=== PATIENT | male | born 1940 | race African-American/Black ===

== ENCOUNTER 2018-05-26 06:56 | Inpatient (IN) ==
[2018-05-21 11:34] LABS: Basophils % 0.8 % (0.0-0.8); Eosinophils # 0.2 10*3/uL (0.0-0.87); Eosinophils % 3.4 % (0.00-10.9); Hematocrit 32.5 VOL% (42.0-52.0); Hemoglobin 10.3 GM/DL (14.0-18.0); Immature Granulocytes % 0.6 %; Immature Granulocytes Absolute 0.03 #; Lymphocytes # 1.5 10*3/uL (1.4-4.0); Mean Corpuscular HGB Conc 31.7 GM/DL (32-36); Mean Corpuscular Hemoglobin 28 PG (27-34); Mean Corpuscular Volume 87.1 FL (87-102); Mean Platelet Volume 9.4 FL (9.6-12.0); Monocytes # 0.4 10*3/uL (0.11-0.8); Monocytes % 8.2 % (1.7-12.7); Neutrophils # 3.1 10*3/uL (1.4-7.4); Platelet Count 330 T/CUMM (130-400); Red Blood Count 3.73 MC/CUMM (3.8-5.5); Red Cell Distribution Width 14.6 % (9.3-17.3); White Blood Count 5.2 T/CUMM (4-12)
[2018-05-21 11:44] LABS: INR 0.9; PT Patient Result 10.3 SECS; Partial Thromboplastin Time 26.5 SECS (0-40)
[2018-05-21 12:08] LABS: Alanine Aminotransferase 15 U/L (16-61); Albumin 3.6 G/DL (3.4-5.0); Alkaline Phosphatase 111 U/L (45-117); Aspartate Amino Transferase 9 U/L (0-37); Bilirubin,Total < 0.39 MG/DL (0.2-1.0); Blood Urea Nitrogen 23 MG/DL (7-18); Calcium 8.9 MG/DL (8.5-10.1); Glucose 236 MG/DL (74-106); Osmolality,Calculated 292.3 MOS/KG (273-304); Sodium 141 MMOL/L (136-145); Total Protein 7.7 G/DL (6.4-8.3)
[2018-05-26] MEDS ORDERED: DIAZEPAM 5 MG TABLET PO ONE (07:17)
[2018-05-26] MEDS ORDERED: FAMOTIDINE 20 MG TABLET PO ONE (07:17)
[2018-05-26] MEDS ORDERED: ceFAZolin 1,000 MG VIAL ONE (07:41)
[2018-05-26] MEDS ORDERED: VANCOMYCIN 1,000 MG VIAL ONE (07:41)
[2018-05-26] MEDS ORDERED: DIAZEPAM 5 MG TABLET ONE (07:41)
[2018-05-26] MEDS ORDERED: FAMOTIDINE 20 MG TABLET ONE (07:41)
[2018-05-26] MEDS: LACTATED RINGERS 1,000 ML IV SCH ×3 (07:48→20:37)
[2018-05-26] MEDS ORDERED: VANCOMYCIN INJ 1,000 MG in SODIUM CHLORIDE 0.9% 250 ML IV ONE (09:00)
[2018-05-26] MEDS ORDERED: ceFAZolin 1,000 MG in SYRINGE 1 EACH IV ONE (09:00)
[2018-05-26] MEDS ORDERED: BUPIVACAINE 0.5% 50 ML VIAL ONE (09:12)
[2018-05-26] MEDS ORDERED: LIDOCAINE 1% 5 ML VIAL ONE (09:16)
[2018-05-26] MEDS ORDERED: BACITRACIN OINT 0.9 GM PACK TOP ONE (10:24)
[2018-05-26] MEDS ORDERED: DEXTROSE 50% 25 GM/50 ML SYRINGE IV PRN (11:14)
[2018-05-26] MEDS ORDERED: diphenhydrAMINE CAP 25 MG CAPSULE PO PRN (11:14)
[2018-05-26] MEDS ORDERED: ZALEPLON 5 MG CAPSULE PO PRN (11:14)
[2018-05-26] MEDS ORDERED: MAGNESIUM HYDROXIDE SUSP 30 ML UDCUP PO PRN (11:14)
[2018-05-26] MEDS ORDERED: ONDANSETRON 4 MG/2 ML VIAL IV PRN ×2 (11:14→11:43)
[2018-05-26] MEDS ORDERED: GLUCAGON 1 MG VIAL IM PRN (11:14)
[2018-05-26] MEDS ORDERED: MORPHINE 4 MG/1 ML VIAL IV PRN ×2 (11:14)
[2018-05-26] MEDS ORDERED: oxyCODONE IR 5 MG TABLET PO PRN ×2 (11:14)
[2018-05-26] MEDS: HYDROmorphone 2 MG/1 ML VIAL IV PRN ×4 (11:25→11:45)
[2018-05-26] MEDS ORDERED: HYDROmorphone 2 MG/1 ML VIAL ONE (11:26)
[2018-05-26] MEDS ORDERED: PROPOFOL 200 MG/20 ML VIAL IV ONE (11:28)
[2018-05-26] MEDS ORDERED: GLYCOPYRROLATE 0.4 MG/2 ML VIAL ONE (11:29)
[2018-05-26] MEDS ORDERED: ROCURONIUM 100 MG/10 ML VIAL IV ONE (11:29)
[2018-05-26] MEDS ORDERED: fentaNYL 100 MCG/2 ML VIAL ONE (11:29)
[2018-05-26] MEDS ORDERED: SEVOFLURANE 1 UNIT/15 MINUTE INH ONE (11:29)
[2018-05-26] MEDS ORDERED: MIDAZOLAM 2 MG/2 ML VIAL ONE (11:29)
[2018-05-26] MEDS ORDERED: NEOSTIGMINE 10 MG/10 ML VIAL ONE (11:29)
[2018-05-26] MEDS ORDERED: PHENYLEPHRINE 1 MG/10 ML SYRINGE IV ONE (11:29)
[2018-05-26] MEDS ORDERED: LABETALOL 20 MG/4 ML SYRINGE IV ONE (12:13)
[2018-05-26] MEDS: INSULIN LISPRO 100 UNIT/ML SUBCUT SCH ×3 (13:04→20:36)
[2018-05-26] MEDS: KETOROLAC 15 MG/1 ML VIAL IV SCH ×2 (13:28→19:19)
[2018-05-26] MEDS ORDERED: hydrALAZINE 20 MG/1 ML VIAL IV PRN (13:31)
[2018-05-26] MEDS: ceFAZolin 2,000 MG in PREMIX 1 EACH IV SCH ×2 (15:43→22:51)
[2018-05-26] MEDS: ACETAMINOPHEN 500 MG TABLET PO SCH ×2 (15:43→20:36)
[2018-05-26] MEDS: GLIMEPIRIDE 4 MG TABLET PO SCH (17:46)
[2018-05-26] MEDS: GEMFIBROZIL 600 MG TABLET PO SCH (17:46)
[2018-05-26] MEDS: metFORMIN 500 MG TABLET PO SCH (20:35)
[2018-05-26] MEDS: GABAPENTIN 300 MG CAPSULE PO SCH (20:36)
[2018-05-26] MEDS: DOCUSATE SODIUM 100 MG CAPSULE PO SCH (20:36)
[2018-05-26] MEDS: PANTOPRAZOLE 40 MG TABLET PO SCH (20:36)
[2018-05-27] MEDS: KETOROLAC 15 MG/1 ML VIAL IV SCH ×2 (01:25→06:04)
[2018-05-27] MEDS: ACETAMINOPHEN 500 MG TABLET PO SCH ×2 (02:25→10:00)
[2018-05-27] MEDS ORDERED: FONDAPARINUX 2.5 MG/0.5 ML SYRINGE SUBCUT SCH (05:15)
[2018-05-27 05:20] LABS: Basophils % 0.3 % (0.0-0.8); Eosinophils # 0.1 10*3/uL (0.0-0.87); Eosinophils % 0.8 % (0.00-10.9); Hematocrit 29.8 VOL% (42.0-52.0); Hemoglobin 9.4 GM/DL (14.0-18.0); Immature Granulocytes % 0.3 %; Immature Granulocytes Absolute 0.02 #; Lymphocytes # 1.2 10*3/uL (1.4-4.0); Lymphocytes % 18.7 % (21.2-54.2); Mean Corpuscular HGB Conc 31.5 GM/DL (32-36); Mean Corpuscular Hemoglobin 27 PG (27-34); Mean Corpuscular Volume 86.1 FL (87-102); Mean Platelet Volume 9.6 FL (9.6-12.0); Monocytes # 0.8 10*3/uL (0.11-0.8); Monocytes % 11.6 % (1.7-12.7); Neutrophils # 4.5 10*3/uL (1.4-7.4); Neutrophils % 68.3 % (38.7-73.9); Platelet Count 321 T/CUMM (130-400); Red Blood Count 3.46 MC/CUMM (3.8-5.5); Red Cell Distribution Width 14.6 % (9.3-17.3); White Blood Count 6.6 T/CUMM (4-12)
[2018-05-27 05:34] LABS: Calcium 8.6 MG/DL (8.5-10.1); Osmolality,Calculated 285.1 MOS/KG (273-304); Potassium 3.6 MMOL/L (3.5-5.1)
[2018-05-27] MEDS: LACTATED RINGERS 1,000 ML IV SCH (05:55)
[2018-05-27] MEDS: INSULIN LISPRO 100 UNIT/ML SUBCUT SCH ×4 (08:14→21:23)
[2018-05-27 08:34] LABS: Apearance,Urine CLEAR (Clear); Bilirubin,Urine Negative (Negative); Blood, Urine Negative (Negative); Glucose,Urine (UA) Negative (Negative); Ketones,Urine Negative (Negative); Mucus,Urine Occasional /LPF (Occasional); Nitrite,Urine Negative (Negative); Protein,Urine Negative; Squamous Epithelial Cell,Urine Occasional /HPF (0-10); Urine Color Yellow (Yellow); Urine Specific Gravity 1.027 (1.001-1.035); Urine Urobilinogen < 2.0 EU/DL (0.2-1.0); WBC,Urine <1 /HPF (0-6)
[2018-05-27] MEDS ORDERED: hydrALAZINE 20 MG/1 ML VIAL IV PRN (08:50)
[2018-05-27] MEDS ORDERED: LOSARTAN 50 MG TABLET PO SCH (09:00)
[2018-05-27] MEDS ORDERED: METOPROLOL SUCCINATE XL 50 MG TABLET PO SCH (09:00)
[2018-05-27] MEDS ORDERED: hydrALAZINE 25 MG TABLET PO SCH (09:00)
[2018-05-27] MEDS ORDERED: METOPROLOL TARTRATE 50 MG TABLET PO SCH (09:00)
[2018-05-27] MEDS: metFORMIN 500 MG TABLET PO SCH ×2 (09:55→21:23)
[2018-05-27] MEDS: GEMFIBROZIL 600 MG TABLET PO SCH ×2 (09:56→17:23)
[2018-05-27] MEDS: POTASSIUM CHLORIDE 20 MEQ TABLET PO SCH (09:56)
[2018-05-27] MEDS: LOSARTAN 50 MG TABLET PO SCH (09:56)
[2018-05-27] MEDS: ATORVASTATIN 20 MG TABLET PO SCH (09:59)
[2018-05-27] MEDS: DOCUSATE SODIUM 100 MG CAPSULE PO SCH ×3 (09:59→21:22)
[2018-05-27] MEDS: FUROSEMIDE 40 MG TABLET PO SCH (09:59)
[2018-05-27] MEDS: PANTOPRAZOLE 40 MG TABLET PO SCH ×2 (10:00→21:22)
[2018-05-27] MEDS: GLIMEPIRIDE 4 MG TABLET PO SCH ×2 (10:00→17:23)
[2018-05-27] MEDS: CELECOXIB 200 MG CAPSULE PO SCH (17:23)
[2018-05-27] MEDS: GABAPENTIN 300 MG CAPSULE PO SCH (21:23)
[2018-05-28 05:41] LABS: Basophils % 0.4 % (0.0-0.8); Eosinophils # 0.2 10*3/uL (0.0-0.87); Eosinophils % 2.4 % (0.00-10.9); Hematocrit 29.7 VOL% (42.0-52.0); Hemoglobin 9.3 GM/DL (14.0-18.0); Immature Granulocytes % 0.4 %; Immature Granulocytes Absolute 0.03 #; Lymphocytes # 1.3 10*3/uL (1.4-4.0); Lymphocytes % 16.9 % (21.2-54.2); Mean Corpuscular HGB Conc 31.3 GM/DL (32-36); Mean Corpuscular Hemoglobin 27 PG (27-34); Mean Corpuscular Volume 87.4 FL (87-102); Mean Platelet Volume 9.8 FL (9.6-12.0); Monocytes % 13.1 % (1.7-12.7); Neutrophils % 66.8 % (38.7-73.9); Platelet Count 304 T/CUMM (130-400); Red Cell Distribution Width 14.7 % (9.3-17.3); White Blood Count 7.5 T/CUMM (4-12)
[2018-05-28] MEDS: INSULIN LISPRO 100 UNIT/ML SUBCUT SCH ×4 (07:16→21:42)
[2018-05-28] MEDS: GLIMEPIRIDE 4 MG TABLET PO SCH ×2 (07:17→16:39)
[2018-05-28] MEDS: GEMFIBROZIL 600 MG TABLET PO SCH ×2 (08:17→16:39)
[2018-05-28] MEDS: CELECOXIB 200 MG CAPSULE PO SCH (08:18)
[2018-05-28] MEDS: LOSARTAN 50 MG TABLET PO SCH (08:19)
[2018-05-28] MEDS: METOPROLOL SUCCINATE XL 50 MG TABLET PO SCH (08:20)
[2018-05-28] MEDS: FUROSEMIDE 40 MG TABLET PO SCH (08:21)
[2018-05-28] MEDS: ATORVASTATIN 20 MG TABLET PO SCH (08:21)
[2018-05-28] MEDS: PANTOPRAZOLE 40 MG TABLET PO SCH ×2 (08:22→21:14)
[2018-05-28] MEDS: DOCUSATE SODIUM 100 MG CAPSULE PO SCH ×2 (08:23→21:14)
[2018-05-28] MEDS: POTASSIUM CHLORIDE 20 MEQ TABLET PO SCH (08:23)
[2018-05-28] MEDS: metFORMIN 500 MG TABLET PO SCH ×2 (08:29→21:14)
[2018-05-28] MEDS: FONDAPARINUX 2.5 MG/0.5 ML SYRINGE SUBCUT SCH (08:35)
[2018-05-28] MEDS: GABAPENTIN 300 MG CAPSULE PO SCH (21:40)
[2018-05-29 04:50] LABS: Basophils % 0.4 % (0.0-0.8); Eosinophils # 0.3 10*3/uL (0.0-0.87); Eosinophils % 4.2 % (0.00-10.9); Hematocrit 31.8 VOL% (42.0-52.0); Hemoglobin 9.9 GM/DL (14.0-18.0); Immature Granulocytes % 0.5 %; Immature Granulocytes Absolute 0.04 #; Lymphocytes # 1.1 10*3/uL (1.4-4.0); Mean Corpuscular HGB Conc 31.1 GM/DL (32-36); Mean Corpuscular Hemoglobin 28 PG (27-34); Mean Corpuscular Volume 88.6 FL (87-102); Mean Platelet Volume 9.8 FL (9.6-12.0); Monocytes # 0.9 10*3/uL (0.11-0.8); Neutrophils # 5.7 10*3/uL (1.4-7.4); Neutrophils % 69.9 % (38.7-73.9); Platelet Count 337 T/CUMM (130-400); Red Blood Count 3.59 MC/CUMM (3.8-5.5); Red Cell Distribution Width 14.6 % (9.3-17.3); White Blood Count 8.1 T/CUMM (4-12)
[2018-05-29] MEDS: INSULIN LISPRO 100 UNIT/ML SUBCUT SCH ×2 (07:40→12:51)
[2018-05-29] MEDS: GEMFIBROZIL 600 MG TABLET PO SCH (08:53)
[2018-05-29] MEDS: FONDAPARINUX 2.5 MG/0.5 ML SYRINGE SUBCUT SCH (08:53)
[2018-05-29] MEDS: GLIMEPIRIDE 4 MG TABLET PO SCH (08:53)
[2018-05-29] MEDS: DOCUSATE SODIUM 100 MG CAPSULE PO SCH (08:54)
[2018-05-29] MEDS: LOSARTAN 50 MG TABLET PO SCH (08:54)
[2018-05-29] MEDS: CELECOXIB 200 MG CAPSULE PO SCH (08:54)
[2018-05-29] MEDS: POTASSIUM CHLORIDE 20 MEQ TABLET PO SCH (08:55)
[2018-05-29] MEDS: FUROSEMIDE 40 MG TABLET PO SCH (08:55)
[2018-05-29] MEDS: PANTOPRAZOLE 40 MG TABLET PO SCH (08:56)
[2018-05-29] MEDS: METOPROLOL SUCCINATE XL 50 MG TABLET PO SCH (08:56)
[2018-05-29] MEDS: ATORVASTATIN 20 MG TABLET PO SCH (08:56)
[2018-05-29] MEDS: metFORMIN 500 MG TABLET PO SCH (09:02)
[2018-05-29 14:57] VITALS: BP 126/77
[2018-06-08] MEDS ORDERED: CILOSTAZOL 100 MG TABLET PO SCH (09:00)
[2018-06-08] MEDS ORDERED: ASPIRIN EC 81 MG TABLET PO SCH (09:00)
== END 2018-05-29 15:05 | disposition swing bed (61) | DRG 470 ==
LOC: N.OR 06:56 → N.SDSINP 06:57 → N.3E 10:17
PROVIDERS: ADMIT Orthopaedic Surgery; ATTEND Orthopaedic Surgery

== ENCOUNTER 2018-12-10 09:31 | Observation (INO) ==
[2018-12-10] MEDS ORDERED: DEXTROSE 50% 25 GM/50 ML SYRINGE IV ONE (09:40)
[2018-12-10] MEDS ORDERED: DEXTROSE 50% 25 GM/50 ML SYRINGE IV STA (09:46)
[2018-12-10] MEDS ORDERED: DEXTROSE 50% 25 GM/50 ML VIAL IV STA ×2 (09:46→11:50)
[2018-12-10] MEDS: DEXTROSE 5% NACL 0.45% 1,000 ML IV SCH ×2 (09:50→15:46)
[2018-12-10 09:56] LABS: Basophils % 0.5 % (0.0-0.8); Eosinophils # 0.2 10*3/uL (0.0-0.87); Eosinophils % 2.1 % (0.00-10.9); Hematocrit 33.9 VOL% (42.0-52.0); Hemoglobin 10.8 GM/DL (14.0-18.0); Immature Granulocytes % 0.3 %; Immature Granulocytes Absolute 0.02 #; Lymphocytes # 2.8 10*3/uL (1.4-4.0); Lymphocytes % 35.6 % (21.2-54.2); Mean Corpuscular HGB Conc 31.9 GM/DL (32-36); Mean Corpuscular Volume 86.5 FL (87-102); Mean Platelet Volume 9.9 FL (9.6-12.0); Monocytes % 11.3 % (1.7-12.7); Neutrophils % 50.2 % (38.7-73.9); Platelet Count 360 T/CUMM (130-400); Red Blood Count 3.92 MC/CUMM (3.8-5.5); Red Cell Distribution Width 15.1 % (9.3-17.3); White Blood Count 7.7 T/CUMM (4-12)
[2018-12-10 10:06] LABS: PT Patient Result 10.4 SECS (9.6-12.2); Partial Thromboplastin Time 24.3 SECS (20.8-36.0)
[2018-12-10 10:13] LABS: Albumin 3.8 G/DL (3.4-5.0); Bilirubin,Total 0.4 MG/DL (0.2-1.0); Osmolality,Calculated 279.3 MOS/KG (273-304); Total Protein 8.1 G/DL (6.4-8.3)
[2018-12-10] MEDS ORDERED: ONDANSETRON 4 MG/2 ML VIAL IV PRN (11:29)
[2018-12-10] MEDS ORDERED: ACETAMINOPHEN 325 MG TABLET PO PRN (11:29)
[2018-12-10 11:32] LABS: Amorphous Crystals,Urine Occasional /HPF (Few); Apearance,Urine CLEAR (Clear); Bilirubin,Urine Negative (Negative); Blood, Urine Negative (Negative); Glucose,Urine (UA) Negative (Negative); Ketones,Urine Negative (Negative); Mucus,Urine Occasional /LPF (Occasional); Nitrite,Urine Negative (Negative); Protein,Urine Negative; Squamous Epithelial Cell,Urine Occasional /HPF (0-10); Urine Color Straw (Yellow); Urine Specific Gravity 1.005 (1.001-1.035); Urine Urobilinogen < 2.0 EU/DL (0.2-1.0); WBC,Urine <1 /HPF (0-6)
[2018-12-10] MEDS ORDERED: NITROGLYCERIN SL 0.4 MG TABLET SL PRN (15:31)
[2018-12-10] MEDS ORDERED: DICLOFENAC 1% GEL 100 GM TUBE TOP PRN (15:31)
[2018-12-10] MEDS ORDERED: DEXTROSE 10% 250 ML BAG IV PRN (15:50)
[2018-12-10] MEDS ORDERED: GLUCAGON 1 MG VIAL IM PRN (15:50)
[2018-12-10] MEDS ORDERED: ATORVASTATIN 20 MG TABLET PO SCH (17:00)
[2018-12-10] MEDS: GEMFIBROZIL 600 MG TABLET PO SCH (17:16)
[2018-12-10] MEDS: CILOSTAZOL 100 MG TABLET PO SCH (22:20)
[2018-12-10] MEDS: traMADol 50 MG TABLET PO PRN (22:20)
[2018-12-10] MEDS: GABAPENTIN 600 MG TABLET PO SCH (22:20)
[2018-12-11 05:58] LABS: Basophils % 0.5 % (0.0-0.8); Eosinophils # 0.2 10*3/uL (0.0-0.87); Eosinophils % 3.1 % (0.00-10.9); Hematocrit 31.7 VOL% (42.0-52.0); Hemoglobin 9.8 GM/DL (14.0-18.0); Immature Granulocytes % 0.2 %; Immature Granulocytes Absolute 0.01 #; Lymphocytes # 1.5 10*3/uL (1.4-4.0); Lymphocytes % 26.2 % (21.2-54.2); Mean Corpuscular HGB Conc 30.9 GM/DL (32-36); Mean Corpuscular Volume 88.8 FL (87-102); Monocytes % 12.2 % (1.7-12.7); Neutrophils % 57.8 % (38.7-73.9); Platelet Count 312 T/CUMM (130-400); Red Blood Count 3.57 MC/CUMM (3.8-5.5); White Blood Count 5.7 T/CUMM (4-12)
[2018-12-11 06:40] LABS: Calcium 9.2 MG/DL (8.5-10.1); Osmolality,Calculated 292.1 MOS/KG (273-304); Risk Ratio 1.56; Thyroid Stimulating Hormone 4.01 uIU/ml (0.358-3.74); VLDL CHOLESTEROL 13.4 MG/DL
[2018-12-11] MEDS ORDERED: METOPROLOL SUCCINATE XL 50 MG TABLET PO SCH (09:00)
[2018-12-11] MEDS ORDERED: LOSARTAN 50 MG TABLET PO SCH (09:00)
[2018-12-11] MEDS ORDERED: FUROSEMIDE 40 MG TABLET PO SCH (09:00)
[2018-12-11] MEDS ORDERED: PANTOPRAZOLE 40 MG TABLET PO SCH (09:00)
[2018-12-11] MEDS ORDERED: POTASSIUM CHLORIDE 20 MEQ TABLET PO SCH (09:00)
[2018-12-11] MEDS ORDERED: ASPIRIN EC 81 MG TABLET PO SCH (09:00)
[2018-12-11] MEDS: GABAPENTIN 600 MG TABLET PO SCH (09:13)
[2018-12-11] MEDS: GEMFIBROZIL 600 MG TABLET PO SCH (09:14)
[2018-12-11] MEDS: traMADol 50 MG TABLET PO PRN (09:14)
[2018-12-11] MEDS: CILOSTAZOL 100 MG TABLET PO SCH (09:14)
[2018-12-11 16:47] VITALS: BP 131/68
== END 2018-12-11 16:47 | disposition home health service (06) ==
LOC: N.EDINP 09:31 → N.ED 09:31 → N.5E 13:42
PROVIDERS: ADMIT Internal Medicine; ATTEND Internal Medicine

== ENCOUNTER 2019-06-03 01:23 | Observation (INO) ==
[2019-06-03 02:12] LABS: Basophils # 0.1 10*3/uL (0.0-0.2); Basophils % 0.5 % (0.0-0.8); Eosinophils # 0.2 10*3/uL (0.0-0.87); Eosinophils % 2.1 % (0.00-10.9); Hematocrit 31.8 VOL% (42.0-52.0); Hemoglobin 10.3 GM/DL (14.0-18.0); Immature Granulocytes % 0.6 %; Immature Granulocytes Absolute 0.06 #; Lymphocytes # 1.8 10*3/uL (1.4-4.0); Lymphocytes % 17.3 % (21.2-54.2); Mean Corpuscular HGB Conc 32.4 GM/DL (32-36); Mean Corpuscular Volume 86.4 FL (87-102); Monocytes % 7.5 % (1.7-12.7); Platelet Count 371 T/CUMM (130-400); Red Blood Count 3.68 MC/CUMM (3.8-5.5); Red Cell Distribution Width 14.3 % (9.3-17.3); White Blood Count 10.2 T/CUMM (4-12)
[2019-06-03] MEDS ORDERED: ONDANSETRON 4 MG/2 ML VIAL IV STA (02:13)
[2019-06-03] MEDS ORDERED: MORPHINE 4 MG/1 ML VIAL IV STA (02:13)
[2019-06-03] MEDS ORDERED: ALUM/MAG/SIMETH/LIDO VISC 1:1 30 ML BOTTLE PO STA (02:13)
[2019-06-03] MEDS ORDERED: NITROGLYCERIN 2% OINT 1 INCH/GM PACK TOP STA (02:13)
[2019-06-03] MEDS ORDERED: ASPIRIN 325 MG TABLET PO STA (02:13)
[2019-06-03 02:39] LABS: Alanine Aminotransferase 20 U/L (16-61); Albumin 3.9 G/DL (3.4-5.0); Alkaline Phosphatase 168 U/L (45-117); Aspartate Amino Transferase 12 U/L (0-37); Bilirubin,Total < 0.39 MG/DL (0.2-1.0); Blood Urea Nitrogen 30 MG/DL (7-18); Calcium 8.9 MG/DL (8.5-10.1); Estimated Glom Filtration Rate 58 ML/MIN; Glucose 330 MG/DL (74-106); Osmolality,Calculated 291.8 MOS/KG (273-304); Total Protein 7.2 G/DL (6.4-8.3)
[2019-06-03 02:51] LABS: INR 0.9; PT Patient Result 10.3 SECS (9.6-12.2); Partial Thromboplastin Time 23.6 SECS (20.8-36.0)
[2019-06-03] MEDS ORDERED: MORPHINE 4 MG/1 ML VIAL ONE (03:04)
[2019-06-03] MEDS ORDERED: NITROGLYCERIN 2% OINT 1 INCH/GM PACK TOP ONE (03:04)
[2019-06-03] MEDS ORDERED: ONDANSETRON 4 MG/2 ML VIAL ONE (03:04)
[2019-06-03] MEDS ORDERED: ASPIRIN 325 MG TABLET ONE (03:05)
[2019-06-03] MEDS ORDERED: ALUM/MAG/SIMETH/LIDO VISC 1:1 30 ML BOTTLE PO ONE (03:07)
[2019-06-03] MEDS ORDERED: ceFAZolin 1,000 MG VIAL ONE (05:21)
[2019-06-03] MEDS ORDERED: ONDANSETRON 4 MG/2 ML VIAL IV PRN (06:35)
[2019-06-03] MEDS ORDERED: ACETAMINOPHEN 325 MG TABLET PO PRN (06:35)
[2019-06-03] MEDS: ENOXAPARIN 40 MG/0.4 ML SYRINGE SUBCUT SCH (07:20)
[2019-06-03] MEDS ORDERED: LOSARTAN 50 MG TABLET PO SCH (09:00)
[2019-06-03] MEDS ORDERED: WARFARIN 7.5 MG TABLET PO SCH ×2 (09:00→18:00)
[2019-06-03] MEDS: METOPROLOL SUCCINATE XL 50 MG TABLET PO SCH (09:19)
[2019-06-03] MEDS: POTASSIUM CHLORIDE 10 MEQ TABLET PO SCH (09:19)
[2019-06-03] MEDS: CLOPIDOGREL 75 MG TABLET PO SCH (09:20)
[2019-06-03] MEDS: FUROSEMIDE 40 MG TABLET PO SCH (09:20)
[2019-06-03] MEDS: cilostazoL 100 MG TABLET PO SCH ×2 (09:20→21:46)
[2019-06-03] MEDS: GABAPENTIN 600 MG TABLET PO SCH ×2 (09:20→21:47)
[2019-06-03] MEDS: ASPIRIN EC 81 MG TABLET PO SCH (09:20)
[2019-06-03] MEDS: PANTOPRAZOLE 40 MG TABLET PO SCH (09:20)
[2019-06-03] MEDS: gemfibroziL 600 MG TABLET PO SCH ×2 (09:20→16:18)
[2019-06-03] MEDS ORDERED: ATORVASTATIN 40 MG TABLET PO SCH (21:00)
[2019-06-04 04:13] LABS: Basophils # 0.1 10*3/uL (0.0-0.2); Basophils % 0.8 % (0.0-0.8); Eosinophils # 0.2 10*3/uL (0.0-0.87); Eosinophils % 3.8 % (0.00-10.9); Hematocrit 32.6 VOL% (42.0-52.0); Hemoglobin 10.2 GM/DL (14.0-18.0); Immature Granulocytes % 0.6 %; Immature Granulocytes Absolute 0.04 #; Lymphocytes % 31.6 % (21.2-54.2); Mean Corpuscular HGB Conc 31.3 GM/DL (32-36); Mean Corpuscular Volume 87.6 FL (87-102); Mean Platelet Volume 10.1 FL (9.6-12.0); Monocytes % 9.6 % (1.7-12.7); Neutrophils % 53.6 % (38.7-73.9); Platelet Count 360 T/CUMM (130-400); Red Blood Count 3.72 MC/CUMM (3.8-5.5); Red Cell Distribution Width 14.2 % (9.3-17.3); White Blood Count 6.2 T/CUMM (4-12)
[2019-06-04 04:51] LABS: Albumin 3.5 G/DL (3.4-5.0); Bilirubin,Direct 0.13 MG/DL (0.0-0.20); Bilirubin,Indirect 0.9 MG/DL (0.0-1.0); Total Protein 7.4 G/DL (6.4-8.3)
[2019-06-04 04:53] LABS: Calcium 9.3 MG/DL (8.5-10.1); Osmolality,Calculated 282.8 MOS/KG (273-304); Risk Ratio 2.57; VLDL CHOLESTEROL 23.2 MG/DL
[2019-06-04] MEDS: GABAPENTIN 600 MG TABLET PO SCH (09:53)
[2019-06-04] MEDS: cilostazoL 100 MG TABLET PO SCH (09:53)
[2019-06-04] MEDS: ASPIRIN EC 81 MG TABLET PO SCH (09:53)
[2019-06-04] MEDS: POTASSIUM CHLORIDE 10 MEQ TABLET PO SCH (09:54)
[2019-06-04] MEDS: ENOXAPARIN 40 MG/0.4 ML SYRINGE SUBCUT SCH (09:54)
[2019-06-04] MEDS: METOPROLOL SUCCINATE XL 50 MG TABLET PO SCH (09:54)
[2019-06-04] MEDS: gemfibroziL 600 MG TABLET PO SCH (09:54)
[2019-06-04] MEDS: PANTOPRAZOLE 40 MG TABLET PO SCH (09:54)
[2019-06-04] MEDS: CLOPIDOGREL 75 MG TABLET PO SCH (09:54)
[2019-06-04] MEDS: FUROSEMIDE 40 MG TABLET PO SCH (09:54)
[2019-06-04 12:44] VITALS: BP 146/87
== END 2019-06-04 15:10 | disposition home or self-care (01) ==
LOC: EDSEX → SUATTDRO → EDUNIT# → N.EDINP 01:23 → N.TELES 01:23 → N.ED 01:23 → N.TELES 07:44
PROVIDERS: ADMIT Internal Medicine; ATTEND Internal Medicine

== ENCOUNTER 2019-09-25 14:35 | Inpatient (IN) ==
[2019-09-25 16:04] LABS: Basophils % 0.6 % (0.0-0.8); Eosinophils # 0.2 10*3/uL (0.0-0.87); Eosinophils % 2.6 % (0.00-10.9); Hematocrit 40.1 VOL% (42.0-52.0); Hemoglobin 12.4 GM/DL (14.0-18.0); Immature Granulocytes % 0.5 %; Immature Granulocytes Absolute 0.03 #; Mean Corpuscular HGB Conc 30.9 GM/DL (32-36); Mean Corpuscular Volume 87.4 FL (87-102); Mean Platelet Volume 9.8 FL (9.6-12.0); Monocytes % 8.7 % (1.7-12.7); Neutrophils % 57.6 % (38.7-73.9); Platelet Count 367 T/CUMM (130-400); Red Blood Count 4.59 MC/CUMM (3.8-5.5); Red Cell Distribution Width 15.4 % (9.3-17.3); White Blood Count 6.6 T/CUMM (4-12)
[2019-09-25 16:22] LABS: Alanine Aminotransferase 20 U/L (16-61); Albumin 4.2 G/DL (3.4-5.0); Alkaline Phosphatase 154 U/L (45-117); Aspartate Amino Transferase 23 U/L (0-37); Bilirubin,Total < 0.39 MG/DL (0.2-1.0); Blood Urea Nitrogen 25 MG/DL (7-18); Calcium 9.6 MG/DL (8.5-10.1); Estimated Glom Filtration Rate 77 ML/MIN; Glucose 163 MG/DL (74-106); Osmolality,Calculated 284.5 MOS/KG (273-304); Total Protein 8.7 G/DL (6.4-8.3)
[2019-09-25 16:23] LABS: INR 1.8
[2019-09-25 16:48] LABS: Ferritin 201.6 ng/ml (26-388)
[2019-09-25 16:49] LABS: PT Patient Result 18.4 SECS (9.8-11.9)
[2019-09-25] MEDS ORDERED: cefTRIAXone 1,000 MG in SODIUM CHLORIDE 0.9% 100 ML IV STA (16:54)
[2019-09-25 16:55] LABS: Apearance,Urine Slightly Hazy (Clear); Bacteria,Urine Occasional /HPF (Few); Bilirubin,Urine Negative (Negative); Blood, Urine Small mg/dL (Negative); Glucose,Urine (UA) Negative (Negative); Ketones,Urine Negative (Negative); Mucus,Urine Occasional /LPF (Occasional); Nitrite,Urine Negative (Negative); Protein,Urine Negative; RBC,Urine 2 /HPF (0-4); Squamous Epithelial Cell,Urine Occasional /HPF (0-10); Urine Color Yellow (Yellow); Urine Specific Gravity 1.021 (1.001-1.035); Urine Urobilinogen < 2.0 EU/DL (0.2-1.0); WBC,Urine 39 /HPF (0-6)
[2019-09-25] MEDS ORDERED: GLUCAGON 1 MG VIAL IM PRN (17:30)
[2019-09-25] MEDS ORDERED: DEXTROSE 50% 25 GM/50 ML VIAL IV PRN (17:30)
[2019-09-25] MEDS ORDERED: ONDANSETRON 4 MG/2 ML VIAL IV PRN (17:30)
[2019-09-25] MEDS ORDERED: NITROGLYCERIN SL 0.4 MG TABLET SL PRN (17:36)
[2019-09-25] MEDS ORDERED: BISACODYL 5 MG TABLET PO PRN (17:44)
[2019-09-25] MEDS ORDERED: DOCUSATE SODIUM 100 MG CAPSULE PO PRN (17:44)
[2019-09-25] MEDS ORDERED: SIMETHICONE CHEW 125 MG TABLET PO PRN (17:44)
[2019-09-25] MEDS ORDERED: hydrALAZINE 20 MG/1 ML VIAL IV PRN (17:44)
[2019-09-25] MEDS ORDERED: ALUMINUM/MAGNES/SIMETH MAX STR 30 ML UDCUP PO PRN (17:44)
[2019-09-25] MEDS ORDERED: DEXTROSE 10% 250 ML BAG IV PRN (17:44)
[2019-09-25] MEDS ORDERED: ZALEPLON 5 MG CAPSULE PO PRN (17:44)
[2019-09-25] MEDS ORDERED: ACETAMINOPHEN 325 MG TABLET PO PRN ×2 (17:44)
[2019-09-25] MEDS ORDERED: guaiFENesin/DM ER 600-30 MG TABLET PO PRN (17:44)
[2019-09-25] MEDS ORDERED: diphenhydrAMINE CAP 25 MG CAPSULE PO PRN (17:44)
[2019-09-25] MEDS ORDERED: traZODone 50 MG TABLET PO PRN (17:44)
[2019-09-25] MEDS ORDERED: LACTULOSE 20 GM/30 ML UDCUP PO PRN (17:44)
[2019-09-25] MEDS ORDERED: DENOSUMAB 60 MG/ML SYRINGE SUBCUT SCH (18:00)
[2019-09-25] MEDS: GABAPENTIN 600 MG TABLET PO SCH (21:36)
[2019-09-25] MEDS: ATORVASTATIN 40 MG TABLET PO SCH (21:37)
[2019-09-25] MEDS: INSULIN REGULAR 100 UNIT/ML SUBCUT SCH (22:47)
[2019-09-26 05:47] LABS: Basophils % 0.7 % (0.0-0.8); Eosinophils # 0.2 10*3/uL (0.0-0.87); Eosinophils % 2.9 % (0.00-10.9); Hematocrit 36.4 VOL% (42.0-52.0); Hemoglobin 11.4 GM/DL (14.0-18.0); Immature Granulocytes % 0.4 %; Immature Granulocytes Absolute 0.02 #; Lymphocytes # 1.9 10*3/uL (1.4-4.0); Lymphocytes % 35.2 % (21.2-54.2); Mean Corpuscular HGB Conc 31.3 GM/DL (32-36); Mean Corpuscular Volume 87.1 FL (87-102); Monocytes % 13.6 % (1.7-12.7); Neutrophils % 47.2 % (38.7-73.9); Platelet Count 313 T/CUMM (130-400); Red Blood Count 4.18 MC/CUMM (3.8-5.5); Red Cell Distribution Width 15.1 % (9.3-17.3); White Blood Count 5.5 T/CUMM (4-12)
[2019-09-26 05:59] LABS: INR 1.5
[2019-09-26 06:16] LABS: Albumin 3.5 G/DL (3.4-5.0); Bilirubin,Total 1.6 MG/DL (0.2-1.0); Calcium 9.1 MG/DL (8.5-10.1); Osmolality,Calculated 281.4 MOS/KG (273-304); Risk Ratio 2.14; Total Protein 7.3 G/DL (6.4-8.3); VLDL CHOLESTEROL 15.4 MG/DL
[2019-09-26] MEDS: INSULIN REGULAR 100 UNIT/ML SUBCUT SCH ×4 (08:04→21:24)
[2019-09-26] MEDS: LOSARTAN 50 MG TABLET PO SCH (08:30)
[2019-09-26] MEDS: POTASSIUM CHLORIDE 10 MEQ TABLET PO SCH (08:30)
[2019-09-26] MEDS: gemfibroziL 600 MG TABLET PO SCH ×2 (08:30→16:44)
[2019-09-26] MEDS: metFORMIN 500 MG TABLET PO SCH ×2 (08:30→17:03)
[2019-09-26] MEDS: GABAPENTIN 600 MG TABLET PO SCH ×2 (08:31→21:22)
[2019-09-26] MEDS: METOPROLOL SUCCINATE XL 100 MG TABLET PO SCH (08:31)
[2019-09-26] MEDS: cefTRIAXone 1,000 MG in SYRINGE 1 EACH IV SCH (08:33)
[2019-09-26] MEDS: FUROSEMIDE 40 MG TABLET PO SCH (09:09)
[2019-09-26] MEDS: POTASSIUM CHLORIDE RIDER 10 MEQ in PREMIX 1 EACH IV SCH ×6 (10:12→16:57)
[2019-09-26] MEDS: POTASSIUM CHLORIDE 20 MEQ/15 ML UDCUP PO SCH ×2 (11:38→21:21)
[2019-09-26] MEDS: PANTOPRAZOLE 40 MG TABLET PO SCH (18:30)
[2019-09-26] MEDS: POLYETHYLENE GLYCOL POWDER 17 GM PACK PO SCH (21:20)
[2019-09-26] MEDS: ATORVASTATIN 40 MG TABLET PO SCH (21:22)
[2019-09-27 01:46] LABS: Albumin 3.4 G/DL (3.4-5.0); Basophils % 0.7 % (0.0-0.8); Bilirubin,Total 0.5 MG/DL (0.2-1.0); Calcium 8.6 MG/DL (8.5-10.1); Eosinophils # 0.1 10*3/uL (0.0-0.87); Eosinophils % 3.2 % (0.00-10.9); Hemoglobin 11.3 GM/DL (14.0-18.0); Immature Granulocytes % 0.7 %; Immature Granulocytes Absolute 0.03 #; Lymphocytes # 1.5 10*3/uL (1.4-4.0); Lymphocytes % 34.9 % (21.2-54.2); Mean Corpuscular HGB Conc 31.4 GM/DL (32-36); Mean Corpuscular Volume 85.7 FL (87-102); Mean Platelet Volume 9.8 FL (9.6-12.0); Monocytes % 10.9 % (1.7-12.7); Neutrophils % 49.6 % (38.7-73.9); Osmolality,Calculated 275.7 MOS/KG (273-304); Platelet Count 325 T/CUMM (130-400); Total Protein 7.5 G/DL (6.4-8.3); White Blood Count 4.4 T/CUMM (4-12)
[2019-09-27 02:02] LABS: INR 1.4; PT Patient Result 14.5 SECS (9.8-11.9)
[2019-09-27] MEDS: PANTOPRAZOLE 40 MG TABLET PO SCH ×2 (06:04→18:10)
[2019-09-27] MEDS: INSULIN REGULAR 100 UNIT/ML SUBCUT SCH ×4 (08:21→21:45)
[2019-09-27] MEDS: POTASSIUM CHLORIDE 20 MEQ/15 ML UDCUP PO SCH ×2 (09:34→21:46)
[2019-09-27] MEDS: POTASSIUM CHLORIDE 10 MEQ TABLET PO SCH (09:34)
[2019-09-27] MEDS: FUROSEMIDE 40 MG TABLET PO SCH (09:35)
[2019-09-27] MEDS: LOSARTAN 50 MG TABLET PO SCH (09:35)
[2019-09-27] MEDS: GABAPENTIN 600 MG TABLET PO SCH ×2 (09:35→21:46)
[2019-09-27] MEDS: METOPROLOL SUCCINATE XL 100 MG TABLET PO SCH (09:35)
[2019-09-27] MEDS: cefTRIAXone 1,000 MG in SYRINGE 1 EACH IV SCH (09:35)
[2019-09-27] MEDS: gemfibroziL 600 MG TABLET PO SCH ×2 (09:35→16:15)
[2019-09-27] MEDS: ASPIRIN EC 81 MG TABLET PO SCH (09:35)
[2019-09-27] MEDS: POLYETHYLENE GLYCOL POWDER 17 GM PACK PO SCH ×2 (09:36→21:47)
[2019-09-27] MEDS: ATORVASTATIN 40 MG TABLET PO SCH (21:46)
[2019-09-28] MEDS: PANTOPRAZOLE 40 MG TABLET PO SCH ×2 (06:10→18:38)
[2019-09-28 06:37] LABS: Basophils % 0.7 % (0.0-0.8); Eosinophils # 0.2 10*3/uL (0.0-0.87); Hematocrit 39.4 VOL% (42.0-52.0); Hemoglobin 12.6 GM/DL (14.0-18.0); Immature Granulocytes % 0.4 %; Immature Granulocytes Absolute 0.02 #; Lymphocytes % 45.3 % (21.2-54.2); Mean Corpuscular Volume 85.7 FL (87-102); Mean Platelet Volume 9.7 FL (9.6-12.0); Monocytes % 9.9 % (1.7-12.7); Neutrophils % 39.7 % (38.7-73.9); Platelet Count 336 T/CUMM (130-400); Red Cell Distribution Width 14.9 % (9.3-17.3); White Blood Count 4.5 T/CUMM (4-12)
[2019-09-28 06:57] LABS: INR 1.3; PT Patient Result 13.2 SECS (9.8-11.9)
[2019-09-28 07:03] LABS: Albumin 3.7 G/DL (3.4-5.0); Bilirubin,Total 0.8 MG/DL (0.2-1.0); Osmolality,Calculated 278.4 MOS/KG (273-304); Total Protein 8.1 G/DL (6.4-8.3)
[2019-09-28] MEDS ORDERED: LIDOCAINE 2% 5 ML VIAL ONE (09:00)
[2019-09-28] MEDS ORDERED: ETOMIDATE 20 MG/10 ML VIAL IV ONE (09:00)
[2019-09-28] MEDS: INSULIN REGULAR 100 UNIT/ML SUBCUT SCH ×4 (09:05→22:02)
[2019-09-28] MEDS: LACTATED RINGERS 1,000 ML IV SCH (13:00)
[2019-09-28] MEDS: POLYETHYLENE GLYCOL POWDER 17 GM PACK PO SCH ×2 (15:10→22:02)
[2019-09-28] MEDS: GABAPENTIN 600 MG TABLET PO SCH ×2 (15:11→22:02)
[2019-09-28] MEDS: METOPROLOL SUCCINATE XL 100 MG TABLET PO SCH (15:11)
[2019-09-28] MEDS: FUROSEMIDE 40 MG TABLET PO SCH (15:11)
[2019-09-28] MEDS: POTASSIUM CHLORIDE 10 MEQ TABLET PO SCH (15:11)
[2019-09-28] MEDS: LOSARTAN 50 MG TABLET PO SCH (15:11)
[2019-09-28] MEDS: ASPIRIN EC 81 MG TABLET PO SCH (15:11)
[2019-09-28] MEDS: gemfibroziL 600 MG TABLET PO SCH ×2 (15:11→17:45)
[2019-09-28] MEDS: cefTRIAXone 1,000 MG in SYRINGE 1 EACH IV SCH (15:12)
[2019-09-28] MEDS ORDERED: CLOPIDOGREL 75 MG TABLET PO ONE (16:45)
[2019-09-28] MEDS: ATORVASTATIN 40 MG TABLET PO SCH (22:02)
[2019-09-29 04:30] LABS: Basophils % 0.7 % (0.0-0.8); Eosinophils # 0.1 10*3/uL (0.0-0.87); Eosinophils % 3.1 % (0.00-10.9); Hematocrit 36.9 VOL% (42.0-52.0); Hemoglobin 11.5 GM/DL (14.0-18.0); Immature Granulocytes % 0.5 %; Immature Granulocytes Absolute 0.02 #; Lymphocytes # 1.5 10*3/uL (1.4-4.0); Lymphocytes % 35.2 % (21.2-54.2); Mean Corpuscular HGB Conc 31.2 GM/DL (32-36); Mean Corpuscular Volume 87.9 FL (87-102); Monocytes % 10.9 % (1.7-12.7); Neutrophils % 49.6 % (38.7-73.9); Platelet Count 328 T/CUMM (130-400); White Blood Count 4.2 T/CUMM (4-12)
[2019-09-29 04:41] LABS: INR 1.2; PT Patient Result 12.4 SECS (9.8-11.9)
[2019-09-29 04:58] LABS: Albumin 3.5 G/DL (3.4-5.0); Bilirubin,Total 0.6 MG/DL (0.2-1.0); Calcium 8.7 MG/DL (8.5-10.1); Osmolality,Calculated 279.5 MOS/KG (273-304); Total Protein 7.5 G/DL (6.4-8.3)
[2019-09-29] MEDS ORDERED: hydrALAZINE 20 MG/1 ML VIAL IV PRN (06:55)
[2019-09-29] MEDS ORDERED: CLOPIDOGREL 75 MG TABLET PO SCH (09:00)
[2019-09-29] MEDS: gemfibroziL 600 MG TABLET PO SCH (09:17)
[2019-09-29] MEDS: POTASSIUM CHLORIDE 10 MEQ TABLET PO SCH (09:17)
[2019-09-29] MEDS: POLYETHYLENE GLYCOL POWDER 17 GM PACK PO SCH (09:17)
[2019-09-29] MEDS: LOSARTAN 50 MG TABLET PO SCH (09:18)
[2019-09-29] MEDS: PANTOPRAZOLE 40 MG TABLET PO SCH (09:18)
[2019-09-29] MEDS: GABAPENTIN 600 MG TABLET PO SCH (09:18)
[2019-09-29] MEDS: metFORMIN 500 MG TABLET PO SCH (09:18)
[2019-09-29] MEDS: METOPROLOL SUCCINATE XL 100 MG TABLET PO SCH (09:18)
[2019-09-29] MEDS: ASPIRIN EC 81 MG TABLET PO SCH (09:18)
[2019-09-29] MEDS: FUROSEMIDE 40 MG TABLET PO SCH (09:19)
[2019-09-29] MEDS: cefTRIAXone 1,000 MG in SYRINGE 1 EACH IV SCH (09:22)
[2019-09-29] MEDS: INSULIN REGULAR 100 UNIT/ML SUBCUT SCH ×2 (09:31→12:58)
[2019-09-29] MEDS: LACTATED RINGERS 1,000 ML IV SCH (12:06)
[2019-09-29 12:22] VITALS: BP 146/78
== END 2019-09-29 13:19 | disposition home health service (06) | DRG 378 ==
LOC: N.ED 14:35 → N.EDINP 17:30 → SUATTDRO 17:30 → INTOOBSV 17:30 → N.TELEN 17:47 → SUATTDRO 09-26 13:26
PROVIDERS: ADMIT Internal Medicine; ATTEND Family Medicine

== ENCOUNTER 2020-05-26 12:15 | Inpatient (IN) ==
[2020-05-26] MEDS ORDERED: SODIUM CHLORIDE 0.9% 1,000 ML IV STA (14:02)
[2020-05-26 15:14] LABS: Bacteria,Urine Occasional /HPF (Few); Hyaline Casts,Urine 5 /LPF (0-3); Mucus,Urine Occasional /LPF (Occasional); RBC,Urine 7 /HPF (0-4); Renal Epithelial Cells,Urine Occasional /HPF (<1); Squamous Epithelial Cell,Urine Occasional /HPF (0-10); WBC,Urine 1 /HPF (0-6)
[2020-05-26 15:17] LABS: Bilirubin,Urine Negative (Negative); Blood, Urine Negative (Negative); Glucose,Urine (UA) Negative (Negative); Ketones,Urine Negative (Negative); Nitrite,Urine Negative (Negative); Protein,Urine Negative; Urine Appearance Slightly Hazy (Clear); Urine Color Yellow (Yellow); Urine Specific Gravity 1.015 (1.001-1.035); Urine Urobilinogen < 2.0 EU/DL (0.2-1.0)
[2020-05-26 16:03] LABS: Basophils % 0.3 % (0.0-0.8); Eosinophils % 0.3 % (0.00-10.9); Hematocrit 29.3 VOL% (42.0-52.0); Hemoglobin 9.4 GM/DL (14.0-18.0); Immature Granulocytes % 0.6 %; Immature Granulocytes Absolute 0.02 #; Lymphocytes # 0.9 10*3/uL (1.4-4.0); Lymphocytes % 27.2 % (21.2-54.2); Mean Corpuscular HGB Conc 32.1 GM/DL (32-36); Mean Corpuscular Volume 87.2 FL (87-102); Mean Platelet Volume 9.8 FL (9.6-12.0); Neutrophils % 63.6 % (38.7-73.9); Platelet Count 246 T/CUMM (130-400); Red Blood Count 3.36 MC/CUMM (3.8-5.5); Red Cell Distribution Width 15.2 % (9.3-17.3); White Blood Count 3.4 T/CUMM (4-12)
[2020-05-26 16:14] LABS: PT Patient Result 11.1 SECS (9.8-11.9)
[2020-05-26 16:23] LABS: Hypochromasia 1+; Lymphocytes 16 % (20-55); Microcytosis 1+; Platelet Estimate Adequate; Segmented Neutrophils 77 % (50-85); Total Cells Counted 100
[2020-05-26 16:29] LABS: Alanine Aminotransferase 20 U/L (16-61); Alkaline Phosphatase 88 U/L (45-117); Aspartate Amino Transferase 36 U/L (0-37); Blood Urea Nitrogen 19 MG/DL (7-18); Calcium 8.4 MG/DL (8.5-10.1); Carbon Dioxide 21 MMOL/L (21-32); Estimated Glom Filtration Rate 87 ML/MIN; Ferritin 209.3 ng/ml (26-388); Glucose 113 MG/DL (74-106); Potassium 3.9 MMOL/L (3.5-5.1); Sodium 136 MMOL/L (136-145); Total Protein 7.1 G/DL (6.4-8.3); Troponin I 0.037 NG/ML (0.00-0.045)
[2020-05-26] MEDS ORDERED: hydrALAZINE 20 MG/1 ML VIAL IV PRN (17:55)
[2020-05-26] MEDS ORDERED: ONDANSETRON 4 MG/2 ML VIAL IV PRN (17:55)
[2020-05-26] MEDS ORDERED: DOCUSATE SODIUM 100 MG CAPSULE PO PRN (17:55)
[2020-05-26] MEDS ORDERED: DEXTROSE 50% 25 GM/50 ML VIAL IV PRN ×2 (17:55)
[2020-05-26] MEDS ORDERED: GLUCAGON 1 MG VIAL IM PRN ×2 (17:55)
[2020-05-26] MEDS: ASCORBIC ACID 500 MG TABLET PO SCH (21:54)
[2020-05-26] MEDS: guaiFENesin/DM ER 600-30 MG TABLET PO SCH (21:54)
[2020-05-26] MEDS: FAMOTIDINE 20 MG TABLET PO SCH (21:54)
[2020-05-26] MEDS: ENOXAPARIN 40 MG/0.4 ML SYRINGE SUBCUT SCH (21:54)
[2020-05-26] MEDS: ACETAMINOPHEN 325 MG TABLET PO PRN (21:55)
[2020-05-27 06:21] LABS: Eosinophils % 0.9 % (0.00-10.9); Hematocrit 30.9 VOL% (42.0-52.0); Hemoglobin 9.6 GM/DL (14.0-18.0); Immature Granulocytes % 0.9 %; Immature Granulocytes Absolute 0.02 #; Lymphocytes % 42.8 % (21.2-54.2); Mean Corpuscular HGB Conc 31.1 GM/DL (32-36); Mean Corpuscular Volume 90.6 FL (87-102); Mean Platelet Volume 10.4 FL (9.6-12.0); Neutrophils % 45.4 % (38.7-73.9); Platelet Count 232 T/CUMM (130-400); Red Blood Count 3.41 MC/CUMM (3.8-5.5); Red Cell Distribution Width 15.2 % (9.3-17.3); White Blood Count 2.3 T/CUMM (4-12)
[2020-05-27 06:34] LABS: INR 1.1; PT Patient Result 11.9 SECS (9.8-11.9)
[2020-05-27 06:58] LABS: Calcium 8.2 MG/DL (8.5-10.1); Osmolality,Calculated 277.5 MOS/KG (273-304); Potassium 3.5 MMOL/L (3.5-5.1); Risk Ratio 2.43; Thyroid Stimulating Hormone 2.59 uIU/ml (0.358-3.74); VLDL CHOLESTEROL 16.8 MG/DL
[2020-05-27 07:10] LABS: Ferritin 220.5 ng/ml (26-388)
[2020-05-27] MEDS: CETIRIZINE 10 MG TABLET PO SCH (08:37)
[2020-05-27] MEDS: FAMOTIDINE 20 MG TABLET PO SCH ×2 (08:37→21:33)
[2020-05-27] MEDS: guaiFENesin/DM ER 600-30 MG TABLET PO SCH ×2 (08:37→21:33)
[2020-05-27] MEDS: ZINC GLUCONATE 50 MG TABLET PO SCH (08:37)
[2020-05-27] MEDS: AZITHROMYCIN 250 MG TABLET PO SCH (08:37)
[2020-05-27] MEDS: CHOLECALCIFEROL 1,000 UNIT TABLET PO SCH (08:37)
[2020-05-27] MEDS: ASCORBIC ACID 500 MG TABLET PO SCH ×2 (08:38→21:32)
[2020-05-27] MEDS ORDERED: NITROGLYCERIN SL 0.4 MG TABLET SL PRN (12:57)
[2020-05-27] MEDS: CLOPIDOGREL 75 MG TABLET PO SCH (14:28)
[2020-05-27] MEDS: LOSARTAN 50 MG TABLET PO SCH (14:28)
[2020-05-27] MEDS: ISOSORBIDE MONONITRATE 30 MG TABLET PO SCH (14:28)
[2020-05-27] MEDS: GABAPENTIN 600 MG TABLET PO SCH ×2 (14:28→21:33)
[2020-05-27] MEDS: METOPROLOL SUCCINATE XL 100 MG TABLET PO SCH (14:28)
[2020-05-27] MEDS: ASPIRIN EC 81 MG TABLET PO SCH (14:29)
[2020-05-27] MEDS: FUROSEMIDE 40 MG TABLET PO SCH (14:29)
[2020-05-27] MEDS: POTASSIUM CHLORIDE 20 MEQ TABLET PO SCH (14:29)
[2020-05-27] MEDS ORDERED: SODIUM CHLORIDE 0.9% 200 ML IV SCH (15:00)
[2020-05-27] MEDS ORDERED: ACETAMINOPHEN 325 MG TABLET PO PRN (15:00)
[2020-05-27] MEDS ORDERED: SODIUM CHLORIDE 0.9% 1,000 ML IV SCH (15:00)
[2020-05-27] MEDS ORDERED: diphenhydrAMINE 50 MG/1 ML VIAL IV PRN ×2 (15:00)
[2020-05-27] MEDS ORDERED: methylPREDNISolone SOD SUC 125 MG/2 ML VIAL IV PRN (15:00)
[2020-05-27] MEDS ORDERED: MECLIZINE 25 MG TABLET PO PRN (15:00)
[2020-05-27] MEDS ORDERED: DEXAMETHASONE 4 MG TABLET PO ONE (15:00)
[2020-05-27] MEDS ORDERED: ONDANSETRON 4 MG/2 ML VIAL IV PRN (15:00)
[2020-05-27] MEDS ORDERED: [UNRECOGNIZED DRUG - OTHER] IV SCH (16:00)
[2020-05-27] MEDS: gemfibroziL 600 MG TABLET PO SCH (16:04)
[2020-05-27] MEDS: ACETAMINOPHEN 325 MG TABLET PO PRN (18:29)
[2020-05-27] MEDS: ATORVASTATIN 40 MG TABLET PO SCH (21:33)
[2020-05-27] MEDS: ENOXAPARIN 40 MG/0.4 ML SYRINGE SUBCUT SCH (21:35)
[2020-05-28] MEDS: ACETAMINOPHEN 325 MG TABLET PO PRN (03:38)
[2020-05-28 05:02] LABS: Hematocrit 31.3 VOL% (42.0-52.0); Immature Granulocytes % 0.5 %; Immature Granulocytes Absolute 0.03 #; Lymphocytes # 0.7 10*3/uL (1.4-4.0); Lymphocytes % 11.7 % (21.2-54.2); Mean Corpuscular HGB Conc 31.9 GM/DL (32-36); Mean Corpuscular Volume 87.4 FL (87-102); Mean Platelet Volume 9.9 FL (9.6-12.0); Monocytes % 4.9 % (1.7-12.7); Neutrophils % 82.9 % (38.7-73.9); Platelet Count 240 T/CUMM (130-400); Red Blood Count 3.58 MC/CUMM (3.8-5.5); Red Cell Distribution Width 15.1 % (9.3-17.3); White Blood Count 6.1 T/CUMM (4-12)
[2020-05-28 05:36] LABS: Calcium 8.1 MG/DL (8.5-10.1); Osmolality,Calculated 282.3 MOS/KG (273-304); Potassium 4.1 MMOL/L (3.5-5.1)
[2020-05-28 05:39] LABS: INR 1.1; PT Patient Result 11.6 SECS (9.8-11.9)
[2020-05-28] MEDS: LOSARTAN 50 MG TABLET PO SCH (09:29)
[2020-05-28] MEDS: ASPIRIN EC 81 MG TABLET PO SCH (09:30)
[2020-05-28] MEDS: ISOSORBIDE MONONITRATE 30 MG TABLET PO SCH (09:30)
[2020-05-28] MEDS: guaiFENesin/DM ER 600-30 MG TABLET PO SCH ×2 (09:30→21:43)
[2020-05-28] MEDS: POTASSIUM CHLORIDE 20 MEQ TABLET PO SCH (09:30)
[2020-05-28] MEDS: FAMOTIDINE 20 MG TABLET PO SCH ×2 (09:31→21:43)
[2020-05-28] MEDS: CLOPIDOGREL 75 MG TABLET PO SCH (09:31)
[2020-05-28] MEDS: CETIRIZINE 10 MG TABLET PO SCH (09:31)
[2020-05-28] MEDS: FUROSEMIDE 40 MG TABLET PO SCH (09:31)
[2020-05-28] MEDS: METOPROLOL SUCCINATE XL 100 MG TABLET PO SCH (09:31)
[2020-05-28] MEDS: CHOLECALCIFEROL 1,000 UNIT TABLET PO SCH (09:31)
[2020-05-28] MEDS: gemfibroziL 600 MG TABLET PO SCH ×2 (09:32→16:45)
[2020-05-28] MEDS: AZITHROMYCIN 250 MG TABLET PO SCH (09:32)
[2020-05-28] MEDS: GABAPENTIN 600 MG TABLET PO SCH ×2 (09:32→21:43)
[2020-05-28] MEDS: ASCORBIC ACID 500 MG TABLET PO SCH ×2 (09:32→21:43)
[2020-05-28] MEDS: ZINC GLUCONATE 50 MG TABLET PO SCH (09:32)
[2020-05-28] MEDS: cefTRIAXone 1,000 MG in SYRINGE 1 EACH IV SCH (11:12)
[2020-05-28] MEDS: ATORVASTATIN 40 MG TABLET PO SCH (21:43)
[2020-05-28] MEDS: ENOXAPARIN 40 MG/0.4 ML SYRINGE SUBCUT SCH (21:43)
[2020-05-29 05:01] LABS: Basophils % 0.3 % (0.0-0.8); Eosinophils # 0.1 10*3/uL (0.0-0.87); Eosinophils % 2.1 % (0.00-10.9); Hematocrit 34.6 VOL% (42.0-52.0); Hemoglobin 10.5 GM/DL (14.0-18.0); Immature Granulocytes % 0.9 %; Immature Granulocytes Absolute 0.03 #; Lymphocytes # 0.9 10*3/uL (1.4-4.0); Lymphocytes % 28.8 % (21.2-54.2); Mean Corpuscular HGB Conc 30.3 GM/DL (32-36); Mean Platelet Volume 9.8 FL (9.6-12.0); Monocytes % 6.4 % (1.7-12.7); Neutrophils % 61.5 % (38.7-73.9); Platelet Count 239 T/CUMM (130-400); Red Blood Count 3.76 MC/CUMM (3.8-5.5); Red Cell Distribution Width 15.3 % (9.3-17.3); White Blood Count 3.3 T/CUMM (4-12)
[2020-05-29 05:05] LABS: Ferritin 279.1 ng/ml (26-388)
[2020-05-29 06:09] LABS: Calcium 7.9 MG/DL (8.5-10.1); Osmolality,Calculated 283.1 MOS/KG (273-304); Potassium 3.8 MMOL/L (3.5-5.1)
[2020-05-29] MEDS: LOSARTAN 50 MG TABLET PO SCH (09:40)
[2020-05-29] MEDS: ASCORBIC ACID 500 MG TABLET PO SCH ×2 (09:41→21:37)
[2020-05-29] MEDS: guaiFENesin/DM ER 600-30 MG TABLET PO SCH ×2 (09:41→21:37)
[2020-05-29] MEDS: ZINC GLUCONATE 50 MG TABLET PO SCH (09:41)
[2020-05-29] MEDS: ASPIRIN EC 81 MG TABLET PO SCH (09:41)
[2020-05-29] MEDS: CETIRIZINE 10 MG TABLET PO SCH (09:41)
[2020-05-29] MEDS: AZITHROMYCIN 250 MG TABLET PO SCH (09:41)
[2020-05-29] MEDS: CLOPIDOGREL 75 MG TABLET PO SCH (09:41)
[2020-05-29] MEDS: CHOLECALCIFEROL 1,000 UNIT TABLET PO SCH (09:41)
[2020-05-29] MEDS: GABAPENTIN 600 MG TABLET PO SCH ×2 (09:41→21:37)
[2020-05-29] MEDS: POTASSIUM CHLORIDE 20 MEQ TABLET PO SCH (09:41)
[2020-05-29] MEDS: METOPROLOL SUCCINATE XL 100 MG TABLET PO SCH (09:41)
[2020-05-29] MEDS: FUROSEMIDE 40 MG TABLET PO SCH (09:42)
[2020-05-29] MEDS: ISOSORBIDE MONONITRATE 30 MG TABLET PO SCH (09:42)
[2020-05-29] MEDS: FAMOTIDINE 20 MG TABLET PO SCH ×2 (09:42→21:37)
[2020-05-29] MEDS: gemfibroziL 600 MG TABLET PO SCH ×2 (09:42→16:05)
[2020-05-29] MEDS: cefTRIAXone 1,000 MG in SYRINGE 1 EACH IV SCH (11:39)
[2020-05-29] MEDS: ATORVASTATIN 40 MG TABLET PO SCH (21:37)
[2020-05-29] MEDS: ACETAMINOPHEN 325 MG TABLET PO PRN (21:37)
[2020-05-29] MEDS: ENOXAPARIN 40 MG/0.4 ML SYRINGE SUBCUT SCH (21:37)
[2020-05-30 05:54] LABS: Basophils % 0.3 % (0.0-0.8); Eosinophils # 0.1 10*3/uL (0.0-0.87); Eosinophils % 3.4 % (0.00-10.9); Hemoglobin 9.5 GM/DL (14.0-18.0); Immature Granulocytes % 0.9 %; Immature Granulocytes Absolute 0.03 #; Lymphocytes # 1.1 10*3/uL (1.4-4.0); Mean Corpuscular HGB Conc 31.7 GM/DL (32-36); Mean Platelet Volume 9.8 FL (9.6-12.0); Monocytes % 9.1 % (1.7-12.7); Neutrophils % 54.3 % (38.7-73.9); Platelet Count 295 T/CUMM (130-400); Red Blood Count 3.45 MC/CUMM (3.8-5.5); Red Cell Distribution Width 15.2 % (9.3-17.3); White Blood Count 3.5 T/CUMM (4-12)
[2020-05-30 06:19] LABS: Calcium 8.3 MG/DL (8.5-10.1); Osmolality,Calculated 284.1 MOS/KG (273-304); Potassium 3.4 MMOL/L (3.5-5.1)
[2020-05-30 06:26] LABS: Ferritin 257.8 ng/ml (26-388)
[2020-05-30 06:32] LABS: Hypochromasia 1+; Lymphocytes 28 % (20-55); Microcytosis 1+; Platelet Estimate Adequate; Segmented Neutrophils 61 % (50-85); Total Cells Counted 100
[2020-05-30] MEDS: LOSARTAN 50 MG TABLET PO SCH (10:29)
[2020-05-30] MEDS: FAMOTIDINE 20 MG TABLET PO SCH ×2 (10:29→21:15)
[2020-05-30] MEDS: guaiFENesin/DM ER 600-30 MG TABLET PO SCH ×2 (10:29→21:15)
[2020-05-30] MEDS: FUROSEMIDE 40 MG TABLET PO SCH (10:29)
[2020-05-30] MEDS: ISOSORBIDE MONONITRATE 30 MG TABLET PO SCH (10:29)
[2020-05-30] MEDS: ASCORBIC ACID 500 MG TABLET PO SCH ×2 (10:29→21:15)
[2020-05-30] MEDS: CETIRIZINE 10 MG TABLET PO SCH (10:29)
[2020-05-30] MEDS: gemfibroziL 600 MG TABLET PO SCH ×2 (10:29→16:36)
[2020-05-30] MEDS: ZINC GLUCONATE 50 MG TABLET PO SCH (10:29)
[2020-05-30] MEDS: GABAPENTIN 600 MG TABLET PO SCH ×2 (10:29→21:15)
[2020-05-30] MEDS: CLOPIDOGREL 75 MG TABLET PO SCH (10:30)
[2020-05-30] MEDS: POTASSIUM CHLORIDE 20 MEQ TABLET PO SCH (10:30)
[2020-05-30] MEDS: CHOLECALCIFEROL 1,000 UNIT TABLET PO SCH (10:30)
[2020-05-30] MEDS: ASPIRIN EC 81 MG TABLET PO SCH (10:30)
[2020-05-30] MEDS: AZITHROMYCIN 250 MG TABLET PO SCH (10:30)
[2020-05-30] MEDS: METOPROLOL SUCCINATE XL 100 MG TABLET PO SCH (10:30)
[2020-05-30] MEDS: cefTRIAXone 1,000 MG in SYRINGE 1 EACH IV SCH (12:15)
[2020-05-30] MEDS: ENOXAPARIN 40 MG/0.4 ML SYRINGE SUBCUT SCH (21:15)
[2020-05-30] MEDS: ATORVASTATIN 40 MG TABLET PO SCH (21:15)
[2020-05-31 05:50] LABS: Basophils % 0.2 % (0.0-0.8); Eosinophils # 0.1 10*3/uL (0.0-0.87); Eosinophils % 2.8 % (0.00-10.9); Hematocrit 32.1 VOL% (42.0-52.0); Hemoglobin 10.4 GM/DL (14.0-18.0); Immature Granulocytes % 1.1 %; Immature Granulocytes Absolute 0.05 #; Lymphocytes # 1.2 10*3/uL (1.4-4.0); Lymphocytes % 26.3 % (21.2-54.2); Mean Corpuscular HGB Conc 32.4 GM/DL (32-36); Mean Corpuscular Volume 85.4 FL (87-102); Mean Platelet Volume 9.4 FL (9.6-12.0); Monocytes % 10.1 % (1.7-12.7); Neutrophils % 59.5 % (38.7-73.9); Platelet Count 366 T/CUMM (130-400); Red Blood Count 3.76 MC/CUMM (3.8-5.5); Red Cell Distribution Width 15.1 % (9.3-17.3); White Blood Count 4.6 T/CUMM (4-12)
[2020-05-31 06:10] LABS: Potassium 3.7 MMOL/L (3.5-5.1)
[2020-05-31 06:12] LABS: Eosinophils 3 % (0-10); Hypochromasia 1+; Lymphocytes 30 % (20-55); Microcytosis 1+; Platelet Estimate Adequate; Segmented Neutrophils 60 % (50-85); Total Cells Counted 100
[2020-05-31 06:13] LABS: Ferritin 266.7 ng/ml (26-388)
[2020-05-31] MEDS: ZINC GLUCONATE 50 MG TABLET PO SCH (09:08)
[2020-05-31] MEDS: CLOPIDOGREL 75 MG TABLET PO SCH (09:08)
[2020-05-31] MEDS: ASPIRIN EC 81 MG TABLET PO SCH (09:08)
[2020-05-31] MEDS: guaiFENesin/DM ER 600-30 MG TABLET PO SCH ×2 (09:08→20:59)
[2020-05-31] MEDS: ASCORBIC ACID 500 MG TABLET PO SCH ×2 (09:08→20:59)
[2020-05-31] MEDS: FUROSEMIDE 40 MG TABLET PO SCH (09:08)
[2020-05-31] MEDS: CHOLECALCIFEROL 1,000 UNIT TABLET PO SCH (09:08)
[2020-05-31] MEDS: gemfibroziL 600 MG TABLET PO SCH ×2 (09:08→16:15)
[2020-05-31] MEDS: CETIRIZINE 10 MG TABLET PO SCH (09:08)
[2020-05-31] MEDS: METOPROLOL SUCCINATE XL 100 MG TABLET PO SCH (09:09)
[2020-05-31] MEDS: LOSARTAN 50 MG TABLET PO SCH (09:09)
[2020-05-31] MEDS: FAMOTIDINE 20 MG TABLET PO SCH ×2 (09:09→20:59)
[2020-05-31] MEDS: GABAPENTIN 600 MG TABLET PO SCH ×2 (09:09→21:01)
[2020-05-31] MEDS: POTASSIUM CHLORIDE 20 MEQ TABLET PO SCH (09:09)
[2020-05-31] MEDS: ISOSORBIDE MONONITRATE 30 MG TABLET PO SCH (09:09)
[2020-05-31] MEDS: cefTRIAXone 1,000 MG in SYRINGE 1 EACH IV SCH (12:11)
[2020-05-31] MEDS: ATORVASTATIN 40 MG TABLET PO SCH (20:58)
[2020-05-31] MEDS: ENOXAPARIN 40 MG/0.4 ML SYRINGE SUBCUT SCH (20:59)
[2020-06-01] MEDS: ISOSORBIDE MONONITRATE 30 MG TABLET PO SCH (08:32)
[2020-06-01] MEDS: ASPIRIN EC 81 MG TABLET PO SCH (08:32)
[2020-06-01] MEDS: LOSARTAN 50 MG TABLET PO SCH (08:32)
[2020-06-01] MEDS: GABAPENTIN 600 MG TABLET PO SCH ×2 (08:33→21:07)
[2020-06-01] MEDS: FAMOTIDINE 20 MG TABLET PO SCH ×2 (08:33→21:07)
[2020-06-01] MEDS: CLOPIDOGREL 75 MG TABLET PO SCH (08:33)
[2020-06-01] MEDS: METOPROLOL SUCCINATE XL 100 MG TABLET PO SCH (08:33)
[2020-06-01] MEDS: POTASSIUM CHLORIDE 20 MEQ TABLET PO SCH (08:33)
[2020-06-01] MEDS: ASCORBIC ACID 500 MG TABLET PO SCH ×2 (08:34→21:07)
[2020-06-01] MEDS: guaiFENesin/DM ER 600-30 MG TABLET PO SCH ×2 (08:34→21:07)
[2020-06-01] MEDS: ZINC GLUCONATE 50 MG TABLET PO SCH (08:34)
[2020-06-01] MEDS: gemfibroziL 600 MG TABLET PO SCH ×2 (08:34→17:54)
[2020-06-01] MEDS: CETIRIZINE 10 MG TABLET PO SCH (08:34)
[2020-06-01] MEDS: FUROSEMIDE 40 MG TABLET PO SCH (08:34)
[2020-06-01] MEDS: CHOLECALCIFEROL 1,000 UNIT TABLET PO SCH (08:34)
[2020-06-01] MEDS: cefTRIAXone 1,000 MG in SYRINGE 1 EACH IV SCH (12:08)
[2020-06-01] MEDS ORDERED: TUBERCULIN SKIN TEST 0.1 ML SYRINGE INTRADERM ONE (13:51)
[2020-06-01] MEDS: ENOXAPARIN 40 MG/0.4 ML SYRINGE SUBCUT SCH (21:07)
[2020-06-01] MEDS: ATORVASTATIN 40 MG TABLET PO SCH (21:07)
[2020-06-02] MEDS: FUROSEMIDE 40 MG TABLET PO SCH (09:05)
[2020-06-02] MEDS: POTASSIUM CHLORIDE 20 MEQ TABLET PO SCH (09:05)
[2020-06-02] MEDS: GABAPENTIN 600 MG TABLET PO SCH ×2 (09:05→21:20)
[2020-06-02] MEDS: CHOLECALCIFEROL 1,000 UNIT TABLET PO SCH (09:05)
[2020-06-02] MEDS: guaiFENesin/DM ER 600-30 MG TABLET PO SCH ×2 (09:05→21:20)
[2020-06-02] MEDS: ZINC GLUCONATE 50 MG TABLET PO SCH (09:05)
[2020-06-02] MEDS: ISOSORBIDE MONONITRATE 30 MG TABLET PO SCH (09:05)
[2020-06-02] MEDS: FAMOTIDINE 20 MG TABLET PO SCH ×2 (09:06→21:20)
[2020-06-02] MEDS: METOPROLOL SUCCINATE XL 100 MG TABLET PO SCH (09:06)
[2020-06-02] MEDS: ASCORBIC ACID 500 MG TABLET PO SCH ×2 (09:06→21:20)
[2020-06-02] MEDS: CLOPIDOGREL 75 MG TABLET PO SCH (09:06)
[2020-06-02] MEDS: ASPIRIN EC 81 MG TABLET PO SCH (09:07)
[2020-06-02] MEDS: CETIRIZINE 10 MG TABLET PO SCH (09:07)
[2020-06-02] MEDS: LOSARTAN 50 MG TABLET PO SCH (09:07)
[2020-06-02] MEDS: gemfibroziL 600 MG TABLET PO SCH ×2 (09:07→17:43)
[2020-06-02] MEDS: cefTRIAXone 1,000 MG in SYRINGE 1 EACH IV SCH (11:28)
[2020-06-02] MEDS: ATORVASTATIN 40 MG TABLET PO SCH (21:20)
[2020-06-02] MEDS: ENOXAPARIN 40 MG/0.4 ML SYRINGE SUBCUT SCH (21:20)
[2020-06-03 06:42] LABS: Basophils % 0.4 % (0.0-0.8); Eosinophils # 0.2 10*3/uL (0.0-0.87); Eosinophils % 3.5 % (0.00-10.9); Hematocrit 31.3 VOL% (42.0-52.0); Hemoglobin 9.8 GM/DL (14.0-18.0); Immature Granulocytes % 1.5 %; Immature Granulocytes Absolute 0.08 #; Lymphocytes # 1.5 10*3/uL (1.4-4.0); Mean Corpuscular HGB Conc 31.3 GM/DL (32-36); Mean Corpuscular Volume 87.7 FL (87-102); Mean Platelet Volume 9.2 FL (9.6-12.0); Monocytes % 12.6 % (1.7-12.7); Platelet Count 535 T/CUMM (130-400); Red Blood Count 3.57 MC/CUMM (3.8-5.5); Red Cell Distribution Width 15.1 % (9.3-17.3); White Blood Count 5.4 T/CUMM (4-12)
[2020-06-03 07:01] LABS: Platelet Estimate Increased
[2020-06-03 07:04] LABS: Calcium 8.9 MG/DL (8.5-10.1); Osmolality,Calculated 286.8 MOS/KG (273-304); Potassium 3.8 MMOL/L (3.5-5.1)
[2020-06-03] MEDS: CHOLECALCIFEROL 1,000 UNIT TABLET PO SCH (08:35)
[2020-06-03] MEDS: ZINC GLUCONATE 50 MG TABLET PO SCH (08:35)
[2020-06-03] MEDS: POTASSIUM CHLORIDE 20 MEQ TABLET PO SCH (08:35)
[2020-06-03] MEDS: LOSARTAN 50 MG TABLET PO SCH (08:36)
[2020-06-03] MEDS: CLOPIDOGREL 75 MG TABLET PO SCH (08:36)
[2020-06-03] MEDS: ASCORBIC ACID 500 MG TABLET PO SCH ×2 (08:36→21:15)
[2020-06-03] MEDS: guaiFENesin/DM ER 600-30 MG TABLET PO SCH ×2 (08:36→21:15)
[2020-06-03] MEDS: gemfibroziL 600 MG TABLET PO SCH ×2 (08:36→16:21)
[2020-06-03] MEDS: FAMOTIDINE 20 MG TABLET PO SCH ×2 (08:36→21:15)
[2020-06-03] MEDS: FUROSEMIDE 40 MG TABLET PO SCH (08:36)
[2020-06-03] MEDS: ASPIRIN EC 81 MG TABLET PO SCH (08:36)
[2020-06-03] MEDS: GABAPENTIN 600 MG TABLET PO SCH ×2 (08:36→21:15)
[2020-06-03] MEDS: CETIRIZINE 10 MG TABLET PO SCH (08:36)
[2020-06-03] MEDS: METOPROLOL SUCCINATE XL 100 MG TABLET PO SCH (08:37)
[2020-06-03] MEDS: ISOSORBIDE MONONITRATE 30 MG TABLET PO SCH (08:37)
[2020-06-03] MEDS: cefTRIAXone 1,000 MG in SYRINGE 1 EACH IV SCH (12:27)
[2020-06-03] MEDS: ACETAMINOPHEN 325 MG TABLET PO PRN ×2 (14:43→21:17)
[2020-06-03] MEDS: ATORVASTATIN 40 MG TABLET PO SCH (21:15)
[2020-06-03] MEDS: ENOXAPARIN 40 MG/0.4 ML SYRINGE SUBCUT SCH (21:15)
[2020-06-04 07:22] LABS: Basophils % 0.4 % (0.0-0.8); Eosinophils # 0.2 10*3/uL (0.0-0.87); Eosinophils % 3.7 % (0.00-10.9); Hematocrit 31.8 VOL% (42.0-52.0); Hemoglobin 9.9 GM/DL (14.0-18.0); Immature Granulocytes Absolute 0.09 #; Lymphocytes # 1.4 10*3/uL (1.4-4.0); Mean Corpuscular HGB Conc 31.1 GM/DL (32-36); Mean Corpuscular Volume 87.6 FL (87-102); Monocytes % 12.9 % (1.7-12.7); Platelet Count 588 T/CUMM (130-400); Red Blood Count 3.63 MC/CUMM (3.8-5.5); Red Cell Distribution Width 15.1 % (9.3-17.3); White Blood Count 4.6 T/CUMM (4-12)
[2020-06-04 07:43] LABS: Calcium 8.6 MG/DL (8.5-10.1); Osmolality,Calculated 283.1 MOS/KG (273-304); Potassium 3.8 MMOL/L (3.5-5.1)
[2020-06-04 07:49] LABS: Eosinophils 1 % (0-10); Hypochromasia Slight; Lymphocytes 35 % (20-55); Platelet Estimate Increased; Segmented Neutrophils 53 % (50-85); Total Cells Counted 100
[2020-06-04] MEDS: guaiFENesin/DM ER 600-30 MG TABLET PO SCH ×2 (08:48→21:39)
[2020-06-04] MEDS: ASPIRIN EC 81 MG TABLET PO SCH (08:48)
[2020-06-04] MEDS: CHOLECALCIFEROL 1,000 UNIT TABLET PO SCH (08:48)
[2020-06-04] MEDS: ISOSORBIDE MONONITRATE 30 MG TABLET PO SCH (08:48)
[2020-06-04] MEDS: ASCORBIC ACID 500 MG TABLET PO SCH ×2 (08:48→21:39)
[2020-06-04] MEDS: gemfibroziL 600 MG TABLET PO SCH ×2 (08:48→16:40)
[2020-06-04] MEDS: POTASSIUM CHLORIDE 20 MEQ TABLET PO SCH (08:48)
[2020-06-04] MEDS: CLOPIDOGREL 75 MG TABLET PO SCH (08:48)
[2020-06-04] MEDS: CETIRIZINE 10 MG TABLET PO SCH (08:49)
[2020-06-04] MEDS: FAMOTIDINE 20 MG TABLET PO SCH ×2 (08:49→21:39)
[2020-06-04] MEDS: FUROSEMIDE 40 MG TABLET PO SCH (08:49)
[2020-06-04] MEDS: LOSARTAN 50 MG TABLET PO SCH (08:49)
[2020-06-04] MEDS: GABAPENTIN 600 MG TABLET PO SCH ×2 (08:49→21:39)
[2020-06-04] MEDS: METOPROLOL SUCCINATE XL 100 MG TABLET PO SCH (08:49)
[2020-06-04] MEDS: ZINC GLUCONATE 50 MG TABLET PO SCH (08:49)
[2020-06-04] MEDS: cefTRIAXone 1,000 MG in SYRINGE 1 EACH IV SCH (11:56)
[2020-06-04] MEDS: ATORVASTATIN 40 MG TABLET PO SCH (21:38)
[2020-06-04] MEDS: ENOXAPARIN 40 MG/0.4 ML SYRINGE SUBCUT SCH (21:39)
[2020-06-04] MEDS: ACETAMINOPHEN 325 MG TABLET PO PRN (21:40)
[2020-06-05] MEDS: GABAPENTIN 600 MG TABLET PO SCH ×2 (08:15→21:20)
[2020-06-05] MEDS: guaiFENesin/DM ER 600-30 MG TABLET PO SCH ×2 (08:15→21:20)
[2020-06-05] MEDS: ASPIRIN EC 81 MG TABLET PO SCH (08:15)
[2020-06-05] MEDS: ZINC GLUCONATE 50 MG TABLET PO SCH (08:15)
[2020-06-05] MEDS: ASCORBIC ACID 500 MG TABLET PO SCH ×2 (08:15→21:21)
[2020-06-05] MEDS: CLOPIDOGREL 75 MG TABLET PO SCH (08:15)
[2020-06-05] MEDS: POTASSIUM CHLORIDE 20 MEQ TABLET PO SCH (08:15)
[2020-06-05] MEDS: gemfibroziL 600 MG TABLET PO SCH ×2 (08:15→16:23)
[2020-06-05] MEDS: CHOLECALCIFEROL 1,000 UNIT TABLET PO SCH (08:15)
[2020-06-05] MEDS: FUROSEMIDE 40 MG TABLET PO SCH (08:16)
[2020-06-05] MEDS: ISOSORBIDE MONONITRATE 30 MG TABLET PO SCH (08:16)
[2020-06-05] MEDS: CETIRIZINE 10 MG TABLET PO SCH (08:16)
[2020-06-05] MEDS: LOSARTAN 50 MG TABLET PO SCH (08:16)
[2020-06-05] MEDS: METOPROLOL SUCCINATE XL 100 MG TABLET PO SCH (08:17)
[2020-06-05] MEDS: FAMOTIDINE 20 MG TABLET PO SCH ×2 (08:17→21:21)
[2020-06-05] MEDS: ATORVASTATIN 40 MG TABLET PO SCH (21:20)
[2020-06-05] MEDS: ENOXAPARIN 40 MG/0.4 ML SYRINGE SUBCUT SCH (21:20)
[2020-06-06] MEDS: CLOPIDOGREL 75 MG TABLET PO SCH (08:45)
[2020-06-06] MEDS: gemfibroziL 600 MG TABLET PO SCH ×2 (08:45→18:00)
[2020-06-06] MEDS: ZINC GLUCONATE 50 MG TABLET PO SCH (08:45)
[2020-06-06] MEDS: GABAPENTIN 600 MG TABLET PO SCH (08:45)
[2020-06-06] MEDS: ASCORBIC ACID 500 MG TABLET PO SCH (08:45)
[2020-06-06] MEDS: CETIRIZINE 10 MG TABLET PO SCH (08:46)
[2020-06-06] MEDS: LOSARTAN 50 MG TABLET PO SCH (08:46)
[2020-06-06] MEDS: guaiFENesin/DM ER 600-30 MG TABLET PO SCH (08:46)
[2020-06-06] MEDS: ASPIRIN EC 81 MG TABLET PO SCH (08:46)
[2020-06-06] MEDS: METOPROLOL SUCCINATE XL 100 MG TABLET PO SCH (08:46)
[2020-06-06] MEDS: CHOLECALCIFEROL 1,000 UNIT TABLET PO SCH (08:46)
[2020-06-06] MEDS: FUROSEMIDE 40 MG TABLET PO SCH (08:47)
[2020-06-06] MEDS: FAMOTIDINE 20 MG TABLET PO SCH (08:47)
[2020-06-06] MEDS: ISOSORBIDE MONONITRATE 30 MG TABLET PO SCH (08:47)
[2020-06-06] MEDS: POTASSIUM CHLORIDE 20 MEQ TABLET PO SCH (08:47)
[2020-06-06 11:50] VITALS: BP 133/81
== END 2020-06-06 19:30 | DRG 177 ==
LOC: N.ED 12:15 → N.EDINP 12:15 → N.2E 18:18 → SUATTDRO 05-28 10:41 → N.2E 05-29 13:50
PROVIDERS: ADMIT Internal Medicine; ATTEND Internal Medicine

== ENCOUNTER 2020-06-30 15:17 | Observation (INO) ==
[2020-06-30 18:03] LABS: Basophils # 0.1 10*3/uL (0.0-0.2); Basophils % 0.9 % (0.0-0.8); Eosinophils # 0.2 10*3/uL (0.0-0.87); Eosinophils % 3.3 % (0.00-10.9); Hemoglobin 9.9 GM/DL (14.0-18.0); Immature Granulocytes % 0.4 %; Immature Granulocytes Absolute 0.03 #; Lymphocytes # 2.1 10*3/uL (1.4-4.0); Lymphocytes % 29.8 % (21.2-54.2); Mean Corpuscular HGB Conc 31.9 GM/DL (32-36); Mean Corpuscular Volume 87.8 FL (87-102); Mean Platelet Volume 9.7 FL (9.6-12.0); Neutrophils % 53.6 % (38.7-73.9); Platelet Count 266 T/CUMM (130-400); Red Blood Count 3.53 MC/CUMM (3.8-5.5); Red Cell Distribution Width 16.1 % (9.3-17.3); White Blood Count 6.9 T/CUMM (4-12)
[2020-06-30 18:16] LABS: Bacteria,Urine Occasional /HPF (Few); Bilirubin,Urine Negative (Negative); Blood, Urine Moderate mg/dL (Negative); Glucose,Urine (UA) Negative (Negative); Ketones,Urine Negative (Negative); Mucus,Urine Occasional /LPF (Occasional); Nitrite,Urine Negative (Negative); Protein,Urine 30 MG/DL; RBC,Urine 3 /HPF (0-4); Squamous Epithelial Cell,Urine Occasional /HPF (0-10); Urine Appearance Slightly Hazy (Clear); Urine Color Yellow (Yellow); Urine Specific Gravity 1.015 (1.001-1.035); Urine Urobilinogen < 2.0 EU/DL (0.2-1.0); WBC,Urine 225 /HPF (0-6)
[2020-06-30 18:20] LABS: Blood Urea Nitrogen 18 MG/DL (7-18); Calcium 9.2 MG/DL (8.5-10.1); Carbon Dioxide 27 MMOL/L (21-32); Estimated Glom Filtration Rate 86 ML/MIN; Glucose 116 MG/DL (74-106); Osmolality,Calculated 288.8 MOS/KG (273-304); Potassium 4.3 MMOL/L (3.5-5.1); Sodium 144 MMOL/L (136-145)
[2020-06-30] MEDS ORDERED: cefTRIAXone 1,000 MG in SODIUM CHLORIDE 0.9% 100 ML IV STA (18:53)
[2020-06-30] MEDS ORDERED: PHENAZOPYRIDINE 95 MG TABLET PO STA (19:44)
[2020-06-30] MEDS ORDERED: GLUCAGON 1 MG VIAL IM PRN ×2 (20:39)
[2020-06-30] MEDS ORDERED: DEXTROSE 50% 25 GM/50 ML VIAL IV PRN ×2 (20:39)
[2020-06-30] MEDS ORDERED: ONDANSETRON 4 MG/2 ML VIAL IV PRN (20:39)
[2020-06-30] MEDS ORDERED: hydrALAZINE 20 MG/1 ML VIAL IV PRN (20:45)
[2020-06-30] MEDS ORDERED: ATORVASTATIN 40 MG TABLET PO SCH (21:00)
[2020-06-30] MEDS ORDERED: LIDOCAINE 2% TOP JELLY 20 ML VIAL INTRAURETH ONE (22:04)
[2020-07-01] MEDS: ASCORBIC ACID 500 MG TABLET PO SCH ×2 (01:45→09:29)
[2020-07-01] MEDS: GABAPENTIN 600 MG TABLET PO SCH ×2 (01:45→09:31)
[2020-07-01] MEDS: INSULIN REGULAR 100 UNIT/ML SUBCUT SCH ×3 (01:45→13:48)
[2020-07-01] MEDS ORDERED: ACETAMINOPHEN 325 MG TABLET PO PRN (02:53)
[2020-07-01] MEDS: LACTATED RINGERS 1,000 ML IV SCH ×2 (03:51→13:52)
[2020-07-01 06:04] LABS: Basophils % 0.3 % (0.0-0.8); Eosinophils # 0.2 10*3/uL (0.0-0.87); Eosinophils % 2.4 % (0.00-10.9); Hematocrit 30.9 VOL% (42.0-52.0); Hemoglobin 9.8 GM/DL (14.0-18.0); Immature Granulocytes % 0.5 %; Immature Granulocytes Absolute 0.05 #; Lymphocytes # 1.8 10*3/uL (1.4-4.0); Lymphocytes % 18.5 % (21.2-54.2); Mean Corpuscular HGB Conc 31.7 GM/DL (32-36); Mean Corpuscular Volume 86.8 FL (87-102); Monocytes % 8.7 % (1.7-12.7); Neutrophils % 69.6 % (38.7-73.9); Platelet Count 291 T/CUMM (130-400); Red Blood Count 3.56 MC/CUMM (3.8-5.5); Red Cell Distribution Width 16.2 % (9.3-17.3)
[2020-07-01 06:31] LABS: Calcium 8.8 MG/DL (8.5-10.1); Potassium 3.6 MMOL/L (3.5-5.1)
[2020-07-01] MEDS ORDERED: gemfibroziL 600 MG TABLET PO SCH (07:30)
[2020-07-01] MEDS ORDERED: metFORMIN 500 MG TABLET PO SCH (08:00)
[2020-07-01] MEDS ORDERED: ISOSORBIDE MONONITRATE 30 MG TABLET PO SCH (09:00)
[2020-07-01] MEDS ORDERED: LOSARTAN 50 MG TABLET PO SCH (09:00)
[2020-07-01] MEDS ORDERED: METOPROLOL SUCCINATE XL 100 MG TABLET PO SCH (09:00)
[2020-07-01] MEDS ORDERED: CHOLECALCIFEROL 1,000 UNIT TABLET PO SCH (09:00)
[2020-07-01] MEDS ORDERED: PIOGLITAZONE 15 MG TABLET PO SCH (09:00)
[2020-07-01] MEDS ORDERED: PANTOPRAZOLE 40 MG TABLET PO SCH (09:00)
[2020-07-01 11:38] VITALS: BP 141/80
[2020-07-01] MEDS ORDERED: CEFUROXIME 500 MG TABLET PO SCH (11:53)
== END 2020-07-01 15:35 | disposition home health service (06) ==
LOC: N.EDINP 15:17 → N.ED 15:17 → N.EDINP 22:55 → N.TELEN 23:54
PROVIDERS: ADMIT Internal Medicine; ATTEND Internal Medicine

== ENCOUNTER 2021-02-16 14:51 | Inpatient (IN) ==
[2021-02-16 15:51] LABS: Alanine Aminotransferase 19 U/L (16-61); Albumin 3.8 G/DL (3.4-5.0); Alkaline Phosphatase 143 U/L (45-117); Aspartate Amino Transferase 19 U/L (0-37); Blood Urea Nitrogen 53 MG/DL (7-18); Calcium 9.6 MG/DL (8.5-10.1); Carbon Dioxide 27 MMOL/L (21-32); Glucose 142 MG/DL (74-106); Osmolality,Calculated 294.4 MOS/KG (273-304); Potassium 3.2 MMOL/L (3.5-5.1); Sodium 140 MMOL/L (136-145); Total Protein 7.8 G/DL (6.4-8.2)
[2021-02-16 15:56] LABS: Estimated Glom Filtration Rate 0 ML/MIN
[2021-02-16 16:17] LABS: Basophils # 0.1 10*3/uL (0.0-0.2); Basophils % 0.8 % (0.0-0.8); Eosinophils # 0.1 10*3/uL (0.0-0.87); Eosinophils % 1.9 % (0.00-10.9); Hematocrit 31.1 VOL% (42.0-52.0); Hemoglobin 9.7 GM/DL (14.0-18.0); Immature Granulocytes Absolute 0.06 #; Lymphocytes # 1.6 10*3/uL (1.4-4.0); Lymphocytes % 27.3 % (21.2-54.2); Mean Corpuscular HGB Conc 31.2 GM/DL (32-36); Mean Corpuscular Volume 88.9 FL (87-102); Mean Platelet Volume 9.8 FL (9.6-12.0); Monocytes % 13.4 % (1.7-12.7); Neutrophils % 55.6 % (38.7-73.9); Platelet Count 314 T/CUMM (130-400); Red Cell Distribution Width 15.7 % (9.3-17.3); White Blood Count 5.9 T/CUMM (4-12)
[2021-02-16] MEDS ORDERED: POTASSIUM CHLORIDE 20 MEQ TABLET PO STA (16:39)
[2021-02-16] MEDS ORDERED: DEXTROSE 50% 25 GM/50 ML VIAL IV PRN (17:40)
[2021-02-16] MEDS ORDERED: ACETAMINOPHEN 325 MG TABLET PO PRN (17:40)
[2021-02-16] MEDS ORDERED: ZALEPLON 5 MG CAPSULE PO PRN (17:40)
[2021-02-16] MEDS ORDERED: GLUCAGON 1 MG VIAL IM PRN (17:40)
[2021-02-16] MEDS ORDERED: ALBUTEROL/IPRATROPIUM 3 ML NEB RESP TX PRN (18:20)
[2021-02-16] MEDS: LACTATED RINGERS 1,000 ML IV SCH (18:34)
[2021-02-16] MEDS: ENOXAPARIN 30 MG/0.3 ML SYRINGE SUBCUT SCH (18:34)
[2021-02-16 18:59] LABS: Bilirubin,Urine Negative (Negative); Blood, Urine Small mg/dL (Negative); Glucose,Urine (UA) Negative (Negative); Hyaline Casts,Urine 3 /LPF (0-3); Ketones,Urine Negative (Negative); Mucus,Urine Occasional /LPF (Occasional); Nitrite,Urine Negative (Negative); Protein,Urine Negative; RBC,Urine 4 /HPF (0-4); Squamous Epithelial Cell,Urine Occasional /HPF (0-10); Urine Appearance CLEAR (Clear); Urine Color Yellow (Yellow); Urine Specific Gravity 1.009 (1.001-1.035); Urine Urobilinogen < 2.0 EU/DL (0.2-1.0)
[2021-02-16 19:27] LABS: Risk Ratio 2.35
[2021-02-16 19:38] LABS: Thyroid Stimulating Hormone 4.43 uIU/ml (0.358-3.74)
[2021-02-16] MEDS: INSULIN LISPRO 100 UNIT/ML SUBCUT SCH (21:58)
[2021-02-16] MEDS: PANTOPRAZOLE 40 MG TABLET PO SCH (22:13)
[2021-02-16] MEDS: ATORVASTATIN 40 MG TABLET PO SCH (22:13)
[2021-02-16] MEDS: DOCUSATE SODIUM 100 MG CAPSULE PO PRN (22:14)
[2021-02-17 00:56] LABS: Basophils % 0.7 % (0.0-0.8); Eosinophils # 0.1 10*3/uL (0.0-0.87); Hematocrit 29.4 VOL% (42.0-52.0); Hemoglobin 9.6 GM/DL (14.0-18.0); Immature Granulocytes % 0.4 %; Immature Granulocytes Absolute 0.02 #; Lymphocytes # 1.4 10*3/uL (1.4-4.0); Lymphocytes % 26.8 % (21.2-54.2); Mean Corpuscular HGB Conc 32.7 GM/DL (32-36); Mean Corpuscular Volume 87.2 FL (87-102); Mean Platelet Volume 9.7 FL (9.6-12.0); Monocytes % 11.7 % (1.7-12.7); Neutrophils % 58.4 % (38.7-73.9); Platelet Count 287 T/CUMM (130-400); Red Blood Count 3.37 MC/CUMM (3.8-5.5); Red Cell Distribution Width 15.8 % (9.3-17.3); White Blood Count 5.4 T/CUMM (4-12)
[2021-02-17 01:22] LABS: Calcium 9.2 MG/DL (8.5-10.1); Osmolality,Calculated 299.5 MOS/KG (273-304); Potassium 3.3 MMOL/L (3.5-5.1)
[2021-02-17] MEDS: INSULIN LISPRO 100 UNIT/ML SUBCUT SCH ×4 (07:33→22:17)
[2021-02-17] MEDS: ASPIRIN EC 81 MG TABLET PO SCH (09:37)
[2021-02-17] MEDS: POTASSIUM CHLORIDE 20 MEQ TABLET PO SCH (09:37)
[2021-02-17] MEDS: CLOPIDOGREL 75 MG TABLET PO SCH (09:37)
[2021-02-17] MEDS: PANTOPRAZOLE 40 MG TABLET PO SCH ×2 (09:37→21:30)
[2021-02-17] MEDS ORDERED: POTASSIUM CHLORIDE 20 MEQ PACK PO ONE (11:14)
[2021-02-17] MEDS: LACTATED RINGERS 1,000 ML IV SCH (17:26)
[2021-02-17] MEDS: ENOXAPARIN 30 MG/0.3 ML SYRINGE SUBCUT SCH (17:26)
[2021-02-17] MEDS: ATORVASTATIN 40 MG TABLET PO SCH (21:30)
[2021-02-18 06:06] LABS: Basophils # 0.1 10*3/uL (0.0-0.2); Basophils % 0.9 % (0.0-0.8); Eosinophils # 0.2 10*3/uL (0.0-0.87); Eosinophils % 2.9 % (0.00-10.9); Hematocrit 32.1 VOL% (42.0-52.0); Hemoglobin 10.3 GM/DL (14.0-18.0); Immature Granulocytes % 0.5 %; Immature Granulocytes Absolute 0.03 #; Lymphocytes # 1.4 10*3/uL (1.4-4.0); Lymphocytes % 26.3 % (21.2-54.2); Mean Corpuscular HGB Conc 32.1 GM/DL (32-36); Mean Corpuscular Volume 88.7 FL (87-102); Mean Platelet Volume 9.7 FL (9.6-12.0); Monocytes % 12.6 % (1.7-12.7); Neutrophils % 56.8 % (38.7-73.9); Platelet Count 316 T/CUMM (130-400); Red Blood Count 3.62 MC/CUMM (3.8-5.5); Red Cell Distribution Width 15.5 % (9.3-17.3); White Blood Count 5.5 T/CUMM (4-12)
[2021-02-18 06:34] LABS: Calcium 9.5 MG/DL (8.5-10.1); Osmolality,Calculated 293.1 MOS/KG (273-304); Potassium 3.1 MMOL/L (3.5-5.1)
[2021-02-18] MEDS: PANTOPRAZOLE 40 MG TABLET PO SCH ×2 (08:33→22:23)
[2021-02-18] MEDS: CLOPIDOGREL 75 MG TABLET PO SCH (08:33)
[2021-02-18] MEDS: ASPIRIN EC 81 MG TABLET PO SCH (08:33)
[2021-02-18] MEDS: POTASSIUM CHLORIDE 20 MEQ TABLET PO SCH (08:33)
[2021-02-18] MEDS ORDERED: POTASSIUM CHLORIDE RIDER 20 MEQ/100 ML PREMIX IV PRN (09:30)
[2021-02-18] MEDS: INSULIN LISPRO 100 UNIT/ML SUBCUT SCH ×4 (10:59→22:30)
[2021-02-18] MEDS ORDERED: BISACODYL 10 MG SUPP RECTAL ONE (12:07)
[2021-02-18] MEDS: DOCUSATE SODIUM 100 MG CAPSULE PO PRN (12:15)
[2021-02-18] MEDS: POTASSIUM CHLORIDE RIDER 10 MEQ/100 ML PREMIX IV PRN ×4 (13:40→17:10)
[2021-02-18] MEDS: LACTATED RINGERS 1,000 ML IV SCH ×2 (16:00→22:24)
[2021-02-18] MEDS: ENOXAPARIN 40 MG/0.4 ML SYRINGE SUBCUT SCH (18:12)
[2021-02-18] MEDS: ATORVASTATIN 40 MG TABLET PO SCH (22:23)
[2021-02-19 05:26] LABS: Basophils % 0.8 % (0.0-0.8); Eosinophils # 0.2 10*3/uL (0.0-0.87); Hematocrit 31.2 VOL% (42.0-52.0); Immature Granulocytes % 0.4 %; Immature Granulocytes Absolute 0.02 #; Lymphocytes # 1.4 10*3/uL (1.4-4.0); Lymphocytes % 27.4 % (21.2-54.2); Mean Corpuscular HGB Conc 32.1 GM/DL (32-36); Mean Corpuscular Volume 88.9 FL (87-102); Mean Platelet Volume 9.7 FL (9.6-12.0); Monocytes % 11.6 % (1.7-12.7); Neutrophils % 55.8 % (38.7-73.9); Platelet Count 288 T/CUMM (130-400); Red Blood Count 3.51 MC/CUMM (3.8-5.5); Red Cell Distribution Width 15.5 % (9.3-17.3); White Blood Count 5.3 T/CUMM (4-12)
[2021-02-19 05:41] LABS: Calcium 9.3 MG/DL (8.5-10.1); Osmolality,Calculated 286.3 MOS/KG (273-304); Potassium 3.3 MMOL/L (3.5-5.1)
[2021-02-19] MEDS: POLYETHYLENE GLYCOL POWDER 17 GM PACK PO SCH (09:56)
[2021-02-19] MEDS: INSULIN LISPRO 100 UNIT/ML SUBCUT SCH ×4 (09:56→22:47)
[2021-02-19] MEDS: POTASSIUM CHLORIDE 20 MEQ TABLET PO SCH (09:58)
[2021-02-19] MEDS: CLOPIDOGREL 75 MG TABLET PO SCH (09:58)
[2021-02-19] MEDS: PANTOPRAZOLE 40 MG TABLET PO SCH ×2 (09:58→22:48)
[2021-02-19] MEDS: ASPIRIN EC 81 MG TABLET PO SCH (09:58)
[2021-02-19] MEDS: LACTATED RINGERS 1,000 ML IV SCH (10:21)
[2021-02-19] MEDS ORDERED: HALOPERIDOL 1 MG TABLET PO PRN (11:15)
[2021-02-19] MEDS: AMOXICILLIN/CLAV 500 MG TABLET PO SCH ×2 (11:55→22:47)
[2021-02-19] MEDS: predniSONE 20 MG TABLET PO SCH (11:55)
[2021-02-19] MEDS: POTASSIUM CHLORIDE RIDER 10 MEQ/100 ML PREMIX IV PRN ×2 (15:16→22:48)
[2021-02-19] MEDS: ENOXAPARIN 40 MG/0.4 ML SYRINGE SUBCUT SCH (17:47)
[2021-02-19] MEDS: ATORVASTATIN 40 MG TABLET PO SCH (22:47)
[2021-02-20] MEDS: POTASSIUM CHLORIDE RIDER 10 MEQ/100 ML PREMIX IV PRN (05:06)
[2021-02-20 06:49] LABS: Basophils % 0.3 % (0.0-0.8); Eosinophils # 0.1 10*3/uL (0.0-0.87); Hematocrit 29.7 VOL% (42.0-52.0); Hemoglobin 9.5 GM/DL (14.0-18.0); Immature Granulocytes % 0.6 %; Immature Granulocytes Absolute 0.04 #; Lymphocytes # 1.7 10*3/uL (1.4-4.0); Lymphocytes % 23.3 % (21.2-54.2); Mean Corpuscular Volume 88.9 FL (87-102); Mean Platelet Volume 9.8 FL (9.6-12.0); Monocytes % 8.8 % (1.7-12.7); Platelet Count 318 T/CUMM (130-400); Red Blood Count 3.34 MC/CUMM (3.8-5.5); Red Cell Distribution Width 15.3 % (9.3-17.3); White Blood Count 7.1 T/CUMM (4-12)
[2021-02-20 07:24] LABS: Albumin 3.6 G/DL (3.4-5.0); Calcium 9.3 MG/DL (8.5-10.1); Osmolality,Calculated 285.3 MOS/KG (273-304); Potassium 3.5 MMOL/L (3.5-5.1); Total Protein 7.2 G/DL (6.4-8.2)
[2021-02-20] MEDS: INSULIN LISPRO 100 UNIT/ML SUBCUT SCH ×2 (08:00→13:44)
[2021-02-20] MEDS ORDERED: INFLUENZA VIRUS VACCINE 0.5 ML SYRINGE IM ONE (09:00)
[2021-02-20] MEDS: ASPIRIN EC 81 MG TABLET PO SCH (09:50)
[2021-02-20] MEDS: AMOXICILLIN/CLAV 500 MG TABLET PO SCH (09:50)
[2021-02-20] MEDS: PANTOPRAZOLE 40 MG TABLET PO SCH (09:50)
[2021-02-20] MEDS: CLOPIDOGREL 75 MG TABLET PO SCH (09:51)
[2021-02-20] MEDS: POTASSIUM CHLORIDE 20 MEQ TABLET PO SCH (09:51)
[2021-02-20] MEDS: POLYETHYLENE GLYCOL POWDER 17 GM PACK PO SCH (09:51)
[2021-02-20] MEDS: predniSONE 20 MG TABLET PO SCH (09:51)
[2021-02-20 12:07] VITALS: BP 166/69
== END 2021-02-20 13:34 | disposition home health service (06) | DRG 683 ==
LOC: SUATTDRO → EDUNIT# → EDBD → N.ED 14:51 → N.EDINP 17:00 → SUATTDRO 17:00 → N.5E 18:22
PROVIDERS: ADMIT Family Medicine; ATTEND Internal Medicine

== ENCOUNTER 2021-03-24 14:00 | Inpatient (IN) ==
[2021-03-24] MEDS ORDERED: LACTATED RINGERS 1,000 ML IV ONE ×2 (14:29→15:36)
[2021-03-24 14:31] LABS: Basophils % 0.4 % (0.0-0.8); Eosinophils # 0.1 10*3/uL (0.0-0.87); Eosinophils % 2.3 % (0.00-10.9); Hematocrit 32.1 VOL% (42.0-52.0); Hemoglobin 10.8 GM/DL (14.0-18.0); Immature Granulocytes Absolute 0.05 #; Lymphocytes # 1.3 10*3/uL (1.4-4.0); Mean Corpuscular HGB Conc 33.6 GM/DL (32-36); Mean Corpuscular Volume 86.8 FL (87-102); Mean Platelet Volume 9.2 FL (9.6-12.0); Monocytes % 12.9 % (1.7-12.7); Neutrophils % 57.4 % (38.7-73.9); Platelet Count 352 T/CUMM (130-400); Red Cell Distribution Width 14.9 % (9.3-17.3); White Blood Count 4.9 T/CUMM (4-12)
[2021-03-24 14:48] LABS: INR 1.1; PT Patient Result 12.4 SECS (10.5-12.0); Partial Thromboplastin Time 23.4 SECS (23.8-32.1)
[2021-03-24 14:51] LABS: Alanine Aminotransferase 19 U/L (16-61); Albumin 3.6 G/DL (3.4-5.0); Alkaline Phosphatase 86 U/L (45-117); Aspartate Amino Transferase 17 U/L (0-37); Blood Urea Nitrogen 56 MG/DL (7-18); Calcium 8.8 MG/DL (8.5-10.1); Carbon Dioxide 23 MMOL/L (21-32); Estimated Glom Filtration Rate 21 ML/MIN; Glucose 138 MG/DL (74-106); Osmolality,Calculated 279.7 MOS/KG (273-304); Potassium 3.5 MMOL/L (3.5-5.1); Sodium 131 MMOL/L (136-145); Total Protein 7.2 G/DL (6.4-8.2)
[2021-03-24 14:57] LABS: Lactic Acid 2.7 MMOL/L (0.4-2.0)
[2021-03-24 16:42] LABS: Bilirubin,Urine Negative (Negative); Blood, Urine Small mg/dL (Negative); Glucose,Urine (UA) Negative (Negative); Hyaline Casts,Urine 25 /LPF (0-3); Ketones,Urine Negative (Negative); Mucus,Urine Occasional /LPF (Occasional); Nitrite,Urine Negative (Negative); Protein,Urine Negative; RBC,Urine 2 /HPF (0-4); Squamous Epithelial Cell,Urine Occasional /HPF (0-10); Urine Appearance CLEAR (Clear); Urine Color Yellow (Yellow); Urine Specific Gravity 1.006 (1.001-1.035); Urine Urobilinogen < 2.0 EU/DL (<2.0)
[2021-03-24] MEDS ORDERED: ONDANSETRON 4 MG/2 ML VIAL IV PRN (16:44)
[2021-03-24] MEDS ORDERED: DEXTROSE 50% 25 GM/50 ML VIAL IV PRN (16:44)
[2021-03-24] MEDS ORDERED: DEXTROSE 50% 25 GM/50 ML SYRINGE IV PRN (16:44)
[2021-03-24] MEDS ORDERED: guaiFENesin/DM ER 600-30 MG TABLET PO PRN (16:44)
[2021-03-24] MEDS ORDERED: GLUCAGON 1 MG VIAL IM PRN ×2 (16:44)
[2021-03-24] MEDS ORDERED: NICOTINE 21 MG/24 HR PATCH TRANSDERM PRN (16:44)
[2021-03-24] MEDS ORDERED: diphenhydrAMINE CAP 25 MG CAPSULE PO PRN (16:44)
[2021-03-24] MEDS ORDERED: BISACODYL 5 MG TABLET PO PRN (16:44)
[2021-03-24] MEDS ORDERED: ZALEPLON 5 MG CAPSULE PO PRN (16:44)
[2021-03-24] MEDS: cefTRIAXone 1,000 MG in SODIUM CHLORIDE 0.9% 100 ML IV SCH (17:10)
[2021-03-24] MEDS: SODIUM CHLORIDE 0.9% 1,000 ML IV SCH (17:12)
[2021-03-24] MEDS: HEPARIN 5,000 UNIT/1 ML VIAL SUBCUT SCH (19:35)
[2021-03-24] MEDS: LACTULOSE 20 GM/30 ML UDCUP PO SCH ×2 (19:35→23:44)
[2021-03-24] MEDS ORDERED: VANCOMYCIN INJ 1,500 MG in SODIUM CHLORIDE 0.9% 500 ML IV ONE (21:00)
[2021-03-24] MEDS: ACETAMINOPHEN 325 MG TABLET PO PRN (21:13)
[2021-03-24] MEDS: INSULIN LISPRO 100 UNIT/ML SUBCUT SCH (22:35)
[2021-03-24] MEDS: metroNIDAZOLE INJ 500 MG/100 ML PREMIX IV SCH (23:44)
[2021-03-25 00:49] LABS: Basophils % 0.5 % (0.0-0.8); Eosinophils # 0.1 10*3/uL (0.0-0.87); Eosinophils % 2.4 % (0.00-10.9); Hematocrit 32.6 VOL% (42.0-52.0); Hemoglobin 10.6 GM/DL (14.0-18.0); Immature Granulocytes % 2.1 %; Immature Granulocytes Absolute 0.12 #; Lymphocytes # 1.7 10*3/uL (1.4-4.0); Lymphocytes % 28.7 % (21.2-54.2); Mean Corpuscular HGB Conc 32.5 GM/DL (32-36); Mean Corpuscular Volume 88.6 FL (87-102); Mean Platelet Volume 9.3 FL (9.6-12.0); Monocytes % 11.2 % (1.7-12.7); Neutrophils % 55.1 % (38.7-73.9); Platelet Count 350 T/CUMM (130-400); Red Blood Count 3.68 MC/CUMM (3.8-5.5); White Blood Count 5.8 T/CUMM (4-12)
[2021-03-25 00:53] LABS: Calcium 8.7 MG/DL (8.5-10.1); Osmolality,Calculated 278.7 MOS/KG (273-304)
[2021-03-25] MEDS: metroNIDAZOLE INJ 500 MG/100 ML PREMIX IV SCH (04:40)
[2021-03-25] MEDS: LACTULOSE 20 GM/30 ML UDCUP PO SCH ×7 (04:43→21:34)
[2021-03-25] MEDS: HEPARIN 5,000 UNIT/1 ML VIAL SUBCUT SCH ×2 (05:31→16:22)
[2021-03-25] MEDS ORDERED: PANTOPRAZOLE 40 MG TABLET PO SCH (09:00)
[2021-03-25] MEDS ORDERED: VANCOMYCIN INJ 1,500 MG in SODIUM CHLORIDE 0.9% 500 ML IV PRN (09:00)
[2021-03-25] MEDS: INSULIN LISPRO 100 UNIT/ML SUBCUT SCH ×4 (09:37→21:34)
[2021-03-25] MEDS: SODIUM CHLORIDE 0.9% 1,000 ML IV SCH ×2 (09:38→12:54)
[2021-03-25] MEDS: PANTOPRAZOLE 40 MG TABLET PO SCH ×2 (09:39→21:54)
[2021-03-25] MEDS: levETIRAcetam 250 MG TABLET PO SCH ×2 (10:54→21:15)
[2021-03-25] MEDS: CLOPIDOGREL 75 MG TABLET PO SCH (10:54)
[2021-03-25] MEDS: ASPIRIN EC 81 MG TABLET PO SCH (10:55)
[2021-03-25] MEDS: POTASSIUM CHLORIDE RIDER 10 MEQ/100 ML PREMIX IV PRN ×5 (11:21→19:34)
[2021-03-25] MEDS ORDERED: MORPHINE 2 MG/1 ML SYRINGE IV PRN (11:58)
[2021-03-25] MEDS: ZIPRASIDONE 20 MG/1 ML VIAL IM PRN (12:43)
[2021-03-25] MEDS: gemfibroziL 600 MG TABLET PO SCH (16:22)
[2021-03-25] MEDS: cefTRIAXone 1,000 MG in SODIUM CHLORIDE 0.9% 100 ML IV SCH (16:23)
[2021-03-25] MEDS: ATORVASTATIN 40 MG TABLET PO SCH (21:14)
[2021-03-26] MEDS: SODIUM CHLORIDE 0.9% 1,000 ML IV SCH (00:17)
[2021-03-26] MEDS: POTASSIUM CHLORIDE RIDER 10 MEQ/100 ML PREMIX IV PRN ×4 (00:24→06:30)
[2021-03-26] MEDS: LACTULOSE 20 GM/30 ML UDCUP PO SCH ×6 (01:12→22:10)
[2021-03-26] MEDS: HEPARIN 5,000 UNIT/1 ML VIAL SUBCUT SCH ×2 (05:03→16:15)
[2021-03-26] MEDS: gemfibroziL 600 MG TABLET PO SCH ×2 (06:29→16:14)
[2021-03-26] MEDS: ZIPRASIDONE 20 MG/1 ML VIAL IM PRN (07:16)
[2021-03-26 07:40] LABS: Basophils % 0.3 % (0.0-0.8); Eosinophils # 0.2 10*3/uL (0.0-0.87); Eosinophils % 2.5 % (0.00-10.9); Hematocrit 34.9 VOL% (42.0-52.0); Immature Granulocytes % 1.1 %; Immature Granulocytes Absolute 0.08 #; Lymphocytes # 2.2 10*3/uL (1.4-4.0); Mean Corpuscular HGB Conc 31.5 GM/DL (32-36); Mean Corpuscular Volume 89.5 FL (87-102); Mean Platelet Volume 9.3 FL (9.6-12.0); Monocytes % 12.2 % (1.7-12.7); Neutrophils % 52.9 % (38.7-73.9); Platelet Count 369 T/CUMM (130-400); Red Cell Distribution Width 15.2 % (9.3-17.3); White Blood Count 7.1 T/CUMM (4-12)
[2021-03-26 07:56] LABS: Blood Urea Nitrogen 29 MG/DL (7-18); Calcium 9.3 MG/DL (8.5-10.1); Carbon Dioxide 25 MMOL/L (21-32); Estimated Glom Filtration Rate 52 ML/MIN; Glucose 111 MG/DL (74-106); Osmolality,Calculated 279.8 MOS/KG (273-304); Potassium 4.2 MMOL/L (3.5-5.1); Sodium 137 MMOL/L (136-145)
[2021-03-26] MEDS: INSULIN LISPRO 100 UNIT/ML SUBCUT SCH ×4 (08:52→22:09)
[2021-03-26] MEDS: levETIRAcetam 250 MG TABLET PO SCH ×2 (08:55→20:47)
[2021-03-26] MEDS: CLOPIDOGREL 75 MG TABLET PO SCH (08:55)
[2021-03-26] MEDS: ASPIRIN EC 81 MG TABLET PO SCH (08:56)
[2021-03-26] MEDS: PANTOPRAZOLE 40 MG TABLET PO SCH ×2 (08:56→20:47)
[2021-03-26] MEDS: ACETAMINOPHEN 325 MG TABLET PO PRN (10:27)
[2021-03-26] MEDS: cefTRIAXone 1,000 MG in SODIUM CHLORIDE 0.9% 100 ML IV SCH (16:15)
[2021-03-26] MEDS: VANCOMYCIN INJ 1,500 MG in SODIUM CHLORIDE 0.9% 500 ML IV SCH (20:36)
[2021-03-26] MEDS: ATORVASTATIN 40 MG TABLET PO SCH (20:48)
[2021-03-27] MEDS: LACTULOSE 20 GM/30 ML UDCUP PO SCH ×6 (02:03→21:11)
[2021-03-27] MEDS: HEPARIN 5,000 UNIT/1 ML VIAL SUBCUT SCH ×2 (05:45→16:20)
[2021-03-27 06:15] LABS: Basophils # 0.1 10*3/uL (0.0-0.2); Basophils % 0.9 % (0.0-0.8); Eosinophils # 0.2 10*3/uL (0.0-0.87); Hematocrit 32.4 VOL% (42.0-52.0); Hemoglobin 10.5 GM/DL (14.0-18.0); Immature Granulocytes % 1.1 %; Immature Granulocytes Absolute 0.06 #; Lymphocytes # 1.4 10*3/uL (1.4-4.0); Lymphocytes % 26.5 % (21.2-54.2); Mean Corpuscular HGB Conc 32.4 GM/DL (32-36); Mean Corpuscular Volume 88.5 FL (87-102); Monocytes % 12.1 % (1.7-12.7); Neutrophils % 56.4 % (38.7-73.9); Platelet Count 361 T/CUMM (130-400); Red Blood Count 3.66 MC/CUMM (3.8-5.5); Red Cell Distribution Width 15.1 % (9.3-17.3); White Blood Count 5.4 T/CUMM (4-12)
[2021-03-27 06:36] LABS: Calcium 9.1 MG/DL (8.5-10.1); Potassium 3.3 MMOL/L (3.5-5.1)
[2021-03-27] MEDS: gemfibroziL 600 MG TABLET PO SCH ×2 (07:00→16:19)
[2021-03-27] MEDS: CLOPIDOGREL 75 MG TABLET PO SCH (08:28)
[2021-03-27] MEDS: PANTOPRAZOLE 40 MG TABLET PO SCH ×2 (08:28→21:11)
[2021-03-27] MEDS: levETIRAcetam 250 MG TABLET PO SCH ×2 (08:28→21:11)
[2021-03-27] MEDS: ASPIRIN EC 81 MG TABLET PO SCH (08:28)
[2021-03-27] MEDS: INSULIN LISPRO 100 UNIT/ML SUBCUT SCH ×4 (08:55→22:25)
[2021-03-27] MEDS ORDERED: TUBERCULIN SKIN TEST 0.1 ML SYRINGE INTRADERM ONE (13:11)
[2021-03-27] MEDS: cefTRIAXone 1,000 MG in SODIUM CHLORIDE 0.9% 100 ML IV SCH (16:20)
[2021-03-27] MEDS: ATORVASTATIN 40 MG TABLET PO SCH (21:11)
[2021-03-27] MEDS: MENTHOL/ZINC OXIDE OINT 71 GM JAR TOP SCH (21:11)
[2021-03-27] MEDS: VANCOMYCIN INJ 1,500 MG in SODIUM CHLORIDE 0.9% 500 ML IV SCH (21:18)
[2021-03-28] MEDS: LACTULOSE 20 GM/30 ML UDCUP PO SCH ×3 (02:35→11:14)
[2021-03-28 05:49] LABS: Basophils % 0.6 % (0.0-0.8); Eosinophils # 0.1 10*3/uL (0.0-0.87); Eosinophils % 2.7 % (0.00-10.9); Hematocrit 31.3 VOL% (42.0-52.0); Hemoglobin 10.3 GM/DL (14.0-18.0); Immature Granulocytes % 0.8 %; Immature Granulocytes Absolute 0.04 #; Lymphocytes # 1.6 10*3/uL (1.4-4.0); Lymphocytes % 30.2 % (21.2-54.2); Mean Corpuscular HGB Conc 32.9 GM/DL (32-36); Mean Corpuscular Volume 86.5 FL (87-102); Monocytes % 13.7 % (1.7-12.7); Platelet Count 346 T/CUMM (130-400); Red Blood Count 3.62 MC/CUMM (3.8-5.5); White Blood Count 5.2 T/CUMM (4-12)
[2021-03-28] MEDS: HEPARIN 5,000 UNIT/1 ML VIAL SUBCUT SCH ×2 (06:12→16:28)
[2021-03-28 06:15] LABS: Calcium 9.1 MG/DL (8.5-10.1); Osmolality,Calculated 271.8 MOS/KG (273-304)
[2021-03-28] MEDS ORDERED: POTASSIUM CHLORIDE 20 MEQ PACK PO ONE (08:08)
[2021-03-28] MEDS ORDERED: METOPROLOL SUCCINATE XL 25 MG TABLET PO SCH (09:00)
[2021-03-28] MEDS ORDERED: LOSARTAN 25 MG TABLET PO SCH (09:00)
[2021-03-28] MEDS ORDERED: GABAPENTIN 600 MG TABLET PO SCH (09:00)
[2021-03-28] MEDS: INSULIN LISPRO 100 UNIT/ML SUBCUT SCH ×2 (10:55→14:35)
[2021-03-28] MEDS: gemfibroziL 600 MG TABLET PO SCH ×2 (11:03→16:27)
[2021-03-28] MEDS: ASPIRIN EC 81 MG TABLET PO SCH (11:03)
[2021-03-28] MEDS: MENTHOL/ZINC OXIDE OINT 71 GM JAR TOP SCH (11:03)
[2021-03-28] MEDS: levETIRAcetam 250 MG TABLET PO SCH (11:04)
[2021-03-28] MEDS: PANTOPRAZOLE 40 MG TABLET PO SCH (11:05)
[2021-03-28] MEDS: CLOPIDOGREL 75 MG TABLET PO SCH (11:05)
[2021-03-28 15:44] VITALS: BP 150/92
[2021-03-28] MEDS: cefTRIAXone 1,000 MG in SODIUM CHLORIDE 0.9% 100 ML IV SCH (16:34)
== END 2021-03-28 16:55 | DRG 871 ==
LOC: N.ED 14:00 → N.EDINP 16:44 → N.TELES 18:22
PROVIDERS: ADMIT Internal Medicine; ATTEND Internal Medicine

== ENCOUNTER 2021-04-27 10:50 | Inpatient (IN) ==
[2021-04-27 12:50] LABS: Basophils % 0.3 % (0.0-0.8); Eosinophils % 0.1 % (0.00-10.9); Hematocrit 33.8 VOL% (42.0-52.0); Hemoglobin 10.6 GM/DL (14.0-18.0); Immature Granulocytes % 0.6 %; Immature Granulocytes Absolute 0.06 #; Lymphocytes # 1.1 10*3/uL (1.4-4.0); Lymphocytes % 10.4 % (21.2-54.2); Mean Corpuscular HGB Conc 31.4 GM/DL (32-36); Mean Corpuscular Volume 89.4 FL (87-102); Mean Platelet Volume 9.2 FL (9.6-12.0); Monocytes % 8.5 % (1.7-12.7); Neutrophils % 80.1 % (38.7-73.9); Platelet Count 461 T/CUMM (130-400); Red Blood Count 3.78 MC/CUMM (3.8-5.5); Red Cell Distribution Width 16.2 % (9.3-17.3); White Blood Count 10.2 T/CUMM (4-12)
[2021-04-27 13:19] LABS: Albumin 3.1 G/DL (3.4-5.0); Bilirubin,Total 1.5 MG/DL (0.20-1.00); Osmolality,Calculated 285.8 MOS/KG (273-304); Potassium 3.6 MMOL/L (3.5-5.1); Total Protein 7.4 G/DL (6.4-8.2)
[2021-04-27 14:18] LABS: Bacteria,Urine Occasional /HPF (Few); Bilirubin,Urine Negative (Negative); Blood, Urine Negative (Negative); Glucose,Urine (UA) Negative (Negative); Ketones,Urine Negative (Negative); Mucus,Urine Occasional /LPF (Occasional); Nitrite,Urine Negative (Negative); Protein,Urine 100 MG/DL; Squamous Epithelial Cell,Urine Occasional /HPF (0-10); Urine Appearance CLEAR (Clear); Urine Color Yellow (Yellow); Urine Specific Gravity 1.012 (1.001-1.035)
[2021-04-27] MEDS ORDERED: DEXTROSE 50% 25 GM/50 ML SYRINGE IV PRN (15:34)
[2021-04-27] MEDS ORDERED: hydrALAZINE 20 MG/1 ML VIAL IV PRN (15:34)
[2021-04-27] MEDS ORDERED: GLUCAGON 1 MG VIAL IM PRN (15:34)
[2021-04-27] MEDS ORDERED: ALBUTEROL/IPRATROPIUM 3 ML NEB RESP TX PRN (16:20)
[2021-04-27] MEDS ORDERED: FUROSEMIDE 40 MG/4 ML VIAL IV ONE (16:22)
[2021-04-27] MEDS ORDERED: NITROGLYCERIN SL 0.4 MG TABLET SL PRN (16:24)
[2021-04-27 16:41] LABS: Risk Ratio 2.53; Thyroid Stimulating Hormone 1.16 uIU/ml (0.358-3.74)
[2021-04-27] MEDS: INSULIN LISPRO 100 UNIT/ML SUBCUT SCH ×2 (18:37→22:01)
[2021-04-27] MEDS: CEFEPIME 1,000 MG in SODIUM CHLORIDE 0.9% 100 ML IV SCH ×2 (18:40→23:16)
[2021-04-27] MEDS: ENOXAPARIN 40 MG/0.4 ML SYRINGE SUBCUT SCH (21:45)
[2021-04-27] MEDS: ATORVASTATIN 40 MG TABLET PO SCH (21:45)
[2021-04-27] MEDS: DOCUSATE SODIUM 100 MG CAPSULE PO SCH (22:02)
[2021-04-28] MEDS: CEFEPIME 1,000 MG in SODIUM CHLORIDE 0.9% 100 ML IV SCH (04:23)
[2021-04-28 05:57] LABS: Basophils % 0.2 % (0.0-0.8); Eosinophils % 0.1 % (0.00-10.9); Hematocrit 32.3 VOL% (42.0-52.0); Hemoglobin 10.1 GM/DL (14.0-18.0); Immature Granulocytes % 0.8 %; Immature Granulocytes Absolute 0.07 #; Lymphocytes # 0.9 10*3/uL (1.4-4.0); Mean Corpuscular HGB Conc 31.3 GM/DL (32-36); Mean Corpuscular Volume 89.7 FL (87-102); Mean Platelet Volume 9.2 FL (9.6-12.0); Monocytes % 10.3 % (1.7-12.7); Neutrophils % 77.6 % (38.7-73.9); Platelet Count 383 T/CUMM (130-400); White Blood Count 8.4 T/CUMM (4-12)
[2021-04-28 06:18] LABS: Calcium 8.7 MG/DL (8.5-10.1); Osmolality,Calculated 288.7 MOS/KG (273-304); Potassium 3.3 MMOL/L (3.5-5.1)
[2021-04-28] MEDS: CLOPIDOGREL 75 MG TABLET PO SCH (09:26)
[2021-04-28] MEDS: LOSARTAN 25 MG TABLET PO SCH (09:26)
[2021-04-28] MEDS: METOPROLOL SUCCINATE XL 25 MG TABLET PO SCH (09:26)
[2021-04-28] MEDS: PANTOPRAZOLE 40 MG TABLET PO SCH (09:26)
[2021-04-28] MEDS: ASPIRIN EC 81 MG TABLET PO SCH (09:26)
[2021-04-28] MEDS: DOCUSATE SODIUM 100 MG CAPSULE PO SCH ×2 (09:27→22:08)
[2021-04-28] MEDS: INSULIN LISPRO 100 UNIT/ML SUBCUT SCH ×4 (09:30→22:38)
[2021-04-28] MEDS ORDERED: DEXTROSE 10% 250 ML BAG IV PRN (11:00)
[2021-04-28] MEDS: PIPERACILLIN/TAZOBACTAM 3,375 MG in SODIUM CHLORIDE 0.9% 100 ML IV SCH ×2 (11:47→22:37)
[2021-04-28] MEDS: levETIRAcetam 250 MG TABLET PO SCH ×2 (15:15→22:08)
[2021-04-28] MEDS: ACETAMINOPHEN 325 MG TABLET PO PRN ×2 (15:16→22:07)
[2021-04-28 15:55] LABS: ABG Base Excess 0.7 MMOL/L (-2.5-2.5); ABG Oxygen Saturation 94.9 % (95-100); ABG PCO2 29.4 MM HG (35-48); ABG PH 7.504 (7.35-7.45); ABG PO2 77.3 MM HG (80-95); ABG TCO2 20.7 MMOL/L (23-27); Allen Test Positive; Pt O2 Delivery Device Room Air
[2021-04-28] MEDS: HALOPERIDOL 5 MG/ML AMP IM PRN (16:57)
[2021-04-28] MEDS: SODIUM CHLOR 0.45% KCL 20 MEQ 20 MEQ/1,000 ML BAG IV SCH (16:58)
[2021-04-28] MEDS: ATORVASTATIN 40 MG TABLET PO SCH (22:08)
[2021-04-28] MEDS: ENOXAPARIN 40 MG/0.4 ML SYRINGE SUBCUT SCH (22:09)
[2021-04-28] MEDS: ONDANSETRON 4 MG/2 ML VIAL IV PRN (22:09)
[2021-04-29] MEDS: MORPHINE 2 MG/1 ML SYRINGE IV PRN ×2 (01:05→09:24)
[2021-04-29] MEDS: PIPERACILLIN/TAZOBACTAM 3,375 MG in SODIUM CHLORIDE 0.9% 100 ML IV SCH ×2 (03:51→12:10)
[2021-04-29] MEDS: HALOPERIDOL 5 MG/ML AMP IM PRN ×2 (05:00→21:19)
[2021-04-29 06:56] LABS: Basophils % 0.3 % (0.0-0.8); Eosinophils # 0.1 10*3/uL (0.0-0.87); Hematocrit 31.7 VOL% (42.0-52.0); Hemoglobin 9.9 GM/DL (14.0-18.0); Immature Granulocytes % 0.7 %; Immature Granulocytes Absolute 0.05 #; Lymphocytes # 1.2 10*3/uL (1.4-4.0); Lymphocytes % 15.7 % (21.2-54.2); Mean Corpuscular HGB Conc 31.2 GM/DL (32-36); Mean Corpuscular Volume 88.8 FL (87-102); Mean Platelet Volume 9.4 FL (9.6-12.0); Monocytes % 16.2 % (1.7-12.7); Neutrophils % 66.1 % (38.7-73.9); Platelet Count 423 T/CUMM (130-400); Red Blood Count 3.57 MC/CUMM (3.8-5.5); Red Cell Distribution Width 15.9 % (9.3-17.3); White Blood Count 7.3 T/CUMM (4-12)
[2021-04-29 07:12] LABS: Calcium 8.7 MG/DL (8.5-10.1); Osmolality,Calculated 287.8 MOS/KG (273-304); Potassium 2.8 MMOL/L (3.5-5.1)
[2021-04-29 07:26] LABS: Band Neutrophils 1 % (0-10); Eosinophils 2 % (0-10); Hypochromia 1+; Lymphocytes 16 % (20-55); Platelet Estimate Increased; Segmented Neutrophils 62 % (50-85); Total Cells Counted 100
[2021-04-29] MEDS: INSULIN LISPRO 100 UNIT/ML SUBCUT SCH ×4 (08:45→21:14)
[2021-04-29] MEDS: POTASSIUM CHLORIDE RIDER 10 MEQ/100 ML PREMIX IV SCH ×4 (09:18→13:02)
[2021-04-29] MEDS: ONDANSETRON 4 MG/2 ML VIAL IV PRN (09:23)
[2021-04-29] MEDS: ASPIRIN EC 81 MG TABLET PO SCH (09:27)
[2021-04-29] MEDS: levETIRAcetam 250 MG TABLET PO SCH ×2 (09:27→21:19)
[2021-04-29] MEDS: METOPROLOL SUCCINATE XL 25 MG TABLET PO SCH (09:27)
[2021-04-29] MEDS: PANTOPRAZOLE 40 MG TABLET PO SCH (09:27)
[2021-04-29] MEDS: CLOPIDOGREL 75 MG TABLET PO SCH (09:27)
[2021-04-29] MEDS: DOCUSATE SODIUM 100 MG CAPSULE PO SCH ×2 (09:27→21:20)
[2021-04-29] MEDS: LOSARTAN 25 MG TABLET PO SCH (09:27)
[2021-04-29] MEDS ORDERED: DIPHENOXYLATE/ATROPINE 2.5-0.025 MG TABLET PO PRN (11:18)
[2021-04-29] MEDS ORDERED: FUROSEMIDE 40 MG/4 ML VIAL IV ONE (11:28)
[2021-04-29] MEDS: QUEtiapine 25 MG TABLET PO SCH ×2 (12:10→21:20)
[2021-04-29] MEDS: POTASSIUM CHLORIDE 20 MEQ TABLET PO SCH ×3 (12:10→16:14)
[2021-04-29] MEDS: SODIUM CHLOR 0.45% KCL 20 MEQ 20 MEQ/1,000 ML BAG IV SCH (13:01)
[2021-04-29] MEDS: CEFEPIME 2,000 MG in SODIUM CHLORIDE 0.9% 100 ML IV SCH ×2 (16:13→23:37)
[2021-04-29] MEDS: ATORVASTATIN 40 MG TABLET PO SCH (21:20)
[2021-04-29] MEDS: ENOXAPARIN 40 MG/0.4 ML SYRINGE SUBCUT SCH (21:20)
[2021-04-30] MEDS: ACETAMINOPHEN 325 MG TABLET PO PRN (00:14)
[2021-04-30] MEDS: HALOPERIDOL 5 MG/ML AMP IM PRN (05:10)
[2021-04-30] MEDS: MORPHINE 2 MG/1 ML SYRINGE IV PRN (05:27)
[2021-04-30 05:36] LABS: Basophils % 0.5 % (0.0-0.8); Eosinophils # 0.2 10*3/uL (0.0-0.87); Eosinophils % 2.5 % (0.00-10.9); Hematocrit 33.3 VOL% (42.0-52.0); Hemoglobin 10.2 GM/DL (14.0-18.0); Immature Granulocytes % 1.1 %; Lymphocytes # 2.5 10*3/uL (1.4-4.0); Lymphocytes % 28.4 % (21.2-54.2); Mean Corpuscular HGB Conc 30.6 GM/DL (32-36); Mean Platelet Volume 9.3 FL (9.6-12.0); Monocytes % 15.5 % (1.7-12.7); NRBC # 0.02 10*3/uL; Platelet Count 447 T/CUMM (130-400); Red Blood Count 3.66 MC/CUMM (3.8-5.5); Red Cell Distribution Width 16.1 % (9.3-17.3); White Blood Count 8.8 T/CUMM (4-12)
[2021-04-30] MEDS: CEFEPIME 2,000 MG in SODIUM CHLORIDE 0.9% 100 ML IV SCH ×3 (06:01→23:38)
[2021-04-30 06:16] LABS: Calcium 8.6 MG/DL (8.5-10.1); Osmolality,Calculated 291.4 MOS/KG (273-304); Potassium 4.5 MMOL/L (3.5-5.1)
[2021-04-30] MEDS: INSULIN LISPRO 100 UNIT/ML SUBCUT SCH ×4 (08:25→23:37)
[2021-04-30] MEDS: CLOPIDOGREL 75 MG TABLET PO SCH (09:26)
[2021-04-30] MEDS: METOPROLOL SUCCINATE XL 50 MG TABLET PO SCH (09:26)
[2021-04-30] MEDS: ASPIRIN EC 81 MG TABLET PO SCH (09:27)
[2021-04-30] MEDS: QUEtiapine 25 MG TABLET PO SCH ×2 (09:27→23:20)
[2021-04-30] MEDS: PANTOPRAZOLE 40 MG TABLET PO SCH (09:27)
[2021-04-30] MEDS: LOSARTAN 25 MG TABLET PO SCH (09:27)
[2021-04-30] MEDS: levETIRAcetam 250 MG TABLET PO SCH ×2 (09:27→23:20)
[2021-04-30] MEDS: DOCUSATE SODIUM 100 MG CAPSULE PO SCH ×2 (09:30→23:36)
[2021-04-30] MEDS ORDERED: HALOPERIDOL 5 MG/ML AMP IM ONE (10:33)
[2021-04-30] MEDS: HALOPERIDOL 5 MG/ML AMP IV PRN (10:53)
[2021-04-30] MEDS: ATORVASTATIN 40 MG TABLET PO SCH (23:19)
[2021-04-30] MEDS: ENOXAPARIN 40 MG/0.4 ML SYRINGE SUBCUT SCH (23:31)
[2021-05-01 04:56] LABS: Basophils # 0.1 10*3/uL (0.0-0.2); Eosinophils # 0.4 10*3/uL (0.0-0.87); Eosinophils % 6.2 % (0.00-10.9); Hemoglobin 9.6 GM/DL (14.0-18.0); Immature Granulocytes % 2.4 %; Immature Granulocytes Absolute 0.16 #; Lymphocytes # 1.4 10*3/uL (1.4-4.0); Lymphocytes % 20.3 % (21.2-54.2); Mean Corpuscular Volume 89.1 FL (87-102); Mean Platelet Volume 8.9 FL (9.6-12.0); Monocytes % 12.4 % (1.7-12.7); NRBC # 0.02 10*3/uL; Neutrophils % 57.7 % (38.7-73.9); Platelet Count 404 T/CUMM (130-400); Red Blood Count 3.48 MC/CUMM (3.8-5.5); White Blood Count 6.8 T/CUMM (4-12)
[2021-05-01 05:25] LABS: Calcium 8.6 MG/DL (8.5-10.1); Osmolality,Calculated 289.6 MOS/KG (273-304); Potassium 3.4 MMOL/L (3.5-5.1)
[2021-05-01] MEDS: CEFEPIME 2,000 MG in SODIUM CHLORIDE 0.9% 100 ML IV SCH ×3 (06:50→23:35)
[2021-05-01] MEDS: DOCUSATE SODIUM 100 MG CAPSULE PO SCH ×2 (09:04→20:34)
[2021-05-01] MEDS: PANTOPRAZOLE 40 MG TABLET PO SCH (09:04)
[2021-05-01] MEDS: METOPROLOL SUCCINATE XL 50 MG TABLET PO SCH (09:05)
[2021-05-01] MEDS: CLOPIDOGREL 75 MG TABLET PO SCH (09:05)
[2021-05-01] MEDS: levETIRAcetam 250 MG TABLET PO SCH ×2 (09:05→20:33)
[2021-05-01] MEDS: ASPIRIN EC 81 MG TABLET PO SCH (09:05)
[2021-05-01] MEDS: QUEtiapine 25 MG TABLET PO SCH ×2 (09:05→20:34)
[2021-05-01] MEDS: LOSARTAN 25 MG TABLET PO SCH (09:05)
[2021-05-01] MEDS: INSULIN LISPRO 100 UNIT/ML SUBCUT SCH ×4 (09:06→20:43)
[2021-05-01] MEDS: HALOPERIDOL 5 MG/ML AMP IV PRN ×2 (09:36→16:04)
[2021-05-01] MEDS ORDERED: POTASSIUM CHLORIDE 10 MEQ TABLET PO ONE (12:25)
[2021-05-01] MEDS: MENTHOL/ZINC OXIDE OINT 71 GM JAR TOP SCH ×2 (12:48→20:35)
[2021-05-01] MEDS: ATORVASTATIN 40 MG TABLET PO SCH (20:33)
[2021-05-01] MEDS: ENOXAPARIN 40 MG/0.4 ML SYRINGE SUBCUT SCH (20:34)
[2021-05-02 05:28] LABS: Basophils # 0.1 10*3/uL (0.0-0.2); Basophils % 0.8 % (0.0-0.8); Eosinophils # 0.5 10*3/uL (0.0-0.87); Eosinophils % 5.4 % (0.00-10.9); Hematocrit 32.2 VOL% (42.0-52.0); Immature Granulocytes % 2.3 %; Immature Granulocytes Absolute 0.19 #; Lymphocytes # 1.2 10*3/uL (1.4-4.0); Lymphocytes % 14.6 % (21.2-54.2); Mean Corpuscular HGB Conc 31.1 GM/DL (32-36); Mean Corpuscular Volume 90.2 FL (87-102); Mean Platelet Volume 9.2 FL (9.6-12.0); NRBC # 0.03 10*3/uL; Neutrophils % 66.9 % (38.7-73.9); Platelet Count 429 T/CUMM (130-400); Red Blood Count 3.57 MC/CUMM (3.8-5.5); White Blood Count 8.3 T/CUMM (4-12)
[2021-05-02 05:42] LABS: Calcium 8.4 MG/DL (8.5-10.1); Osmolality,Calculated 290.4 MOS/KG (273-304); Potassium 3.2 MMOL/L (3.5-5.1)
[2021-05-02] MEDS: CEFEPIME 2,000 MG in SODIUM CHLORIDE 0.9% 100 ML IV SCH (06:12)
[2021-05-02] MEDS ORDERED: POTASSIUM CHLORIDE 20 MEQ TABLET PO ONE (07:34)
[2021-05-02] MEDS: INSULIN LISPRO 100 UNIT/ML SUBCUT SCH ×4 (08:06→22:20)
[2021-05-02] MEDS: LOSARTAN 25 MG TABLET PO SCH (10:21)
[2021-05-02] MEDS: levETIRAcetam 250 MG TABLET PO SCH ×2 (10:21→22:16)
[2021-05-02] MEDS: CLOPIDOGREL 75 MG TABLET PO SCH (10:21)
[2021-05-02] MEDS: PANTOPRAZOLE 40 MG TABLET PO SCH (10:21)
[2021-05-02] MEDS: ASPIRIN EC 81 MG TABLET PO SCH (10:21)
[2021-05-02] MEDS: METOPROLOL SUCCINATE XL 50 MG TABLET PO SCH (10:22)
[2021-05-02] MEDS: MENTHOL/ZINC OXIDE OINT 71 GM JAR TOP SCH ×2 (10:22→22:20)
[2021-05-02] MEDS: DOCUSATE SODIUM 100 MG CAPSULE PO SCH ×2 (10:22→22:16)
[2021-05-02] MEDS: HALOPERIDOL 5 MG/ML AMP IV PRN ×2 (10:25→16:42)
[2021-05-02] MEDS: QUEtiapine 25 MG TABLET PO SCH (13:12)
[2021-05-02] MEDS ORDERED: QUEtiapine 25 MG TABLET PO ONE ×2 (13:12→21:00)
[2021-05-02] MEDS ORDERED: MAGNESIUM HYDROXIDE SUSP 30 ML UDCUP PO PRN (13:13)
[2021-05-02] MEDS: LEVOFLOXACIN 750 MG TABLET PO SCH (14:02)
[2021-05-02] MEDS ORDERED: QUEtiapine 25 MG TABLET PO SCH (21:00)
[2021-05-02] MEDS: ATORVASTATIN 40 MG TABLET PO SCH (22:16)
[2021-05-02] MEDS: ENOXAPARIN 40 MG/0.4 ML SYRINGE SUBCUT SCH (22:18)
[2021-05-03 05:27] LABS: Basophils % 0.4 % (0.0-0.8); Eosinophils # 0.2 10*3/uL (0.0-0.87); Eosinophils % 2.3 % (0.00-10.9); Hematocrit 33.7 VOL% (42.0-52.0); Hemoglobin 10.7 GM/DL (14.0-18.0); Immature Granulocytes % 1.8 %; Immature Granulocytes Absolute 0.18 #; Lymphocytes # 0.9 10*3/uL (1.4-4.0); Lymphocytes % 9.3 % (21.2-54.2); Mean Corpuscular HGB Conc 31.8 GM/DL (32-36); Mean Corpuscular Volume 88.9 FL (87-102); Mean Platelet Volume 9.4 FL (9.6-12.0); NRBC # 0.05 10*3/uL; Neutrophils % 76.2 % (38.7-73.9); Platelet Count 463 T/CUMM (130-400); Red Blood Count 3.79 MC/CUMM (3.8-5.5); Red Cell Distribution Width 16.1 % (9.3-17.3)
[2021-05-03 05:50] LABS: Calcium 9.2 MG/DL (8.5-10.1); Osmolality,Calculated 284.8 MOS/KG (273-304); Potassium 3.7 MMOL/L (3.5-5.1)
[2021-05-03 05:52] LABS: Calcium 8.6 MG/DL (8.5-10.1); Osmolality,Calculated 290.4 MOS/KG (273-304); Potassium 3.8 MMOL/L (3.5-5.1)
[2021-05-03] MEDS: INSULIN LISPRO 100 UNIT/ML SUBCUT SCH ×3 (07:50→16:46)
[2021-05-03] MEDS: METOPROLOL SUCCINATE XL 50 MG TABLET PO SCH (09:02)
[2021-05-03] MEDS: PANTOPRAZOLE 40 MG TABLET PO SCH (09:02)
[2021-05-03] MEDS: levETIRAcetam 250 MG TABLET PO SCH (09:02)
[2021-05-03] MEDS: ASPIRIN EC 81 MG TABLET PO SCH (09:02)
[2021-05-03] MEDS: CLOPIDOGREL 75 MG TABLET PO SCH (09:02)
[2021-05-03] MEDS: LEVOFLOXACIN 750 MG TABLET PO SCH (09:02)
[2021-05-03] MEDS: DOCUSATE SODIUM 100 MG CAPSULE PO SCH (09:02)
[2021-05-03] MEDS: LOSARTAN 25 MG TABLET PO SCH (09:02)
[2021-05-03] MEDS: MENTHOL/ZINC OXIDE OINT 71 GM JAR TOP SCH (09:03)
[2021-05-03 12:28] VITALS: BP 157/77
[2021-05-03] MEDS ORDERED: QUEtiapine 25 MG TABLET PO SCH (21:00)
== END 2021-05-03 17:38 | DRG 871 ==
LOC: EDUNIT# → EDBD → N.ED 10:50 → N.EDINP 15:34 → SUATTDRO 15:34 → N.TELES 19:04
PROVIDERS: ADMIT Internal Medicine; ATTEND Hospitalist

== ENCOUNTER 2022-03-02 23:55 | Inpatient (IN) ==
[2022-03-03 00:57] LABS: Basophils % 0.3 % (0.0-0.8); Eosinophils # 0.3 10*3/uL (0.0-0.87); Eosinophils % 2.7 % (0.00-10.9); Hematocrit 31.4 VOL% (42.0-52.0); Hemoglobin 9.9 GM/DL (14.0-18.0); Immature Granulocytes % 1.6 %; Immature Granulocytes Absolute 0.18 #; Lymphocytes # 1.2 10*3/uL (1.4-4.0); Lymphocytes % 10.3 % (21.2-54.2); Mean Corpuscular HGB Conc 31.5 GM/DL (32-36); Mean Corpuscular Volume 87.2 FL (87-102); Mean Platelet Volume 10.5 FL (9.6-12.0); Monocytes # 0.9 10*3/uL (0.11-0.8); Neutrophils % 77.1 % (38.7-73.9); Platelet Count 347 T/CUMM (130-400); Red Cell Distribution Width 15.9 % (9.3-17.3); White Blood Count 11.2 T/CUMM (4-12)
[2022-03-03 00:59] LABS: Bilirubin,Total 0.5 MG/DL (0.20-1.00); Calcium 8.9 MG/DL (8.5-10.1); Osmolality,Calculated 297.7 MOS/KG (273-304); Potassium 4.1 MMOL/L (3.5-5.1); Total Protein 6.9 G/DL (6.4-8.2)
[2022-03-03] MEDS ORDERED: ONDANSETRON 4 MG/2 ML VIAL IV PRN (01:37)
[2022-03-03] MEDS ORDERED: hydrALAZINE 20 MG/1 ML VIAL IV PRN (01:37)
[2022-03-03] MEDS ORDERED: ACETAMINOPHEN 325 MG TABLET PO PRN (01:37)
[2022-03-03] MEDS ORDERED: ALUMINUM/MAGNES/SIMETH MAX STR 30 ML UDCUP PO PRN (01:37)
[2022-03-03] MEDS ORDERED: ASPIRIN EC 325 MG TABLET PO SCH (02:00)
[2022-03-03 06:07] LABS: Risk Ratio 2.26; VLDL Cholesterol 14.4 MG/DL
[2022-03-03] MEDS ORDERED: NITROGLYCERIN SL 0.4 MG TABLET SL PRN ×2 (08:16→08:46)
[2022-03-03] MEDS ORDERED: METOPROLOL SUCCINATE XL 25 MG TABLET PO SCH (09:00)
[2022-03-03] MEDS: PANTOPRAZOLE 40 MG TABLET PO SCH (09:42)
[2022-03-03] MEDS: levETIRAcetam 250 MG TABLET PO SCH ×2 (09:42→21:20)
[2022-03-03] MEDS: ASPIRIN EC 81 MG TABLET PO SCH (09:42)
[2022-03-03] MEDS: CLOPIDOGREL 75 MG TABLET PO SCH (09:42)
[2022-03-03] MEDS: BISACODYL 5 MG TABLET PO SCH (09:42)
[2022-03-03] MEDS: LOSARTAN 50 MG TABLET PO SCH (09:43)
[2022-03-03] MEDS: METOPROLOL SUCCINATE XL 50 MG TABLET PO SCH (09:43)
[2022-03-03] MEDS: ENOXAPARIN 40 MG/0.4 ML SYRINGE SUBCUT SCH (09:43)
[2022-03-03] MEDS: ISOSORBIDE MONONITRATE 30 MG TABLET PO SCH (14:41)
[2022-03-03] MEDS: ATORVASTATIN 40 MG TABLET PO SCH (21:20)
[2022-03-04] MEDS ORDERED: QUEtiapine 100 MG TABLET PO SCH (01:00)
[2022-03-04] MEDS ORDERED: METOPROLOL TARTRATE 5 MG/5 ML VIAL IV ONE ×2 (02:00→02:30)
[2022-03-04] MEDS ORDERED: ZIPRASIDONE 20 MG/1 ML VIAL IM ONE (02:30)
[2022-03-04 07:41] LABS: Basophils % 0.5 % (0.0-0.8); Eosinophils # 0.3 10*3/uL (0.0-0.87); Eosinophils % 3.1 % (0.00-10.9); Hematocrit 30.4 VOL% (42.0-52.0); Hemoglobin 9.7 GM/DL (14.0-18.0); Immature Granulocytes % 2.5 %; Immature Granulocytes Absolute 0.21 #; Lymphocytes # 1.7 10*3/uL (1.4-4.0); Lymphocytes % 19.9 % (21.2-54.2); Mean Corpuscular HGB Conc 31.9 GM/DL (32-36); Mean Corpuscular Volume 87.4 FL (87-102); Mean Platelet Volume 9.7 FL (9.6-12.0); Monocytes % 11.9 % (1.7-12.7); Neutrophils % 62.1 % (38.7-73.9); Platelet Count 362 T/CUMM (130-400); Red Blood Count 3.48 MC/CUMM (3.8-5.5); Red Cell Distribution Width 15.7 % (9.3-17.3); White Blood Count 8.3 T/CUMM (4-12)
[2022-03-04 07:58] LABS: Osmolality,Calculated 289.7 MOS/KG (273-304); Potassium 3.4 MMOL/L (3.5-5.1)
[2022-03-04 08:45] LABS: Hyaline Casts,Urine 1 /LPF (0-3); Mucus,Urine Occasional /LPF (Occasional); RBC,Urine <1 /HPF (0-4); Squamous Epithelial Cell,Urine Occasional /HPF (0-10)
[2022-03-04 08:46] LABS: Bilirubin,Urine Negative (Negative); Blood, Urine Negative (Negative); Glucose,Urine (UA) Negative (Negative); Ketones,Urine Negative (Negative); Nitrite,Urine Negative (Negative); Protein,Urine Negative (Negative); Urine Appearance Clear (Clear); Urine Color Yellow (Yellow); Urine pH 5.5 (4.5-8.0)
[2022-03-04] MEDS: LOSARTAN 50 MG TABLET PO SCH (08:53)
[2022-03-04] MEDS: CLOPIDOGREL 75 MG TABLET PO SCH (08:53)
[2022-03-04] MEDS: BISACODYL 5 MG TABLET PO SCH (08:53)
[2022-03-04] MEDS: PANTOPRAZOLE 40 MG TABLET PO SCH (08:54)
[2022-03-04] MEDS: ISOSORBIDE MONONITRATE 30 MG TABLET PO SCH (08:54)
[2022-03-04] MEDS: ASPIRIN EC 81 MG TABLET PO SCH (08:55)
[2022-03-04] MEDS: METOPROLOL SUCCINATE XL 50 MG TABLET PO SCH (08:55)
[2022-03-04] MEDS: ENOXAPARIN 40 MG/0.4 ML SYRINGE SUBCUT SCH (08:55)
[2022-03-04] MEDS: levETIRAcetam 250 MG TABLET PO SCH ×2 (10:02→21:23)
[2022-03-04] MEDS ORDERED: LACTATED RINGERS 1,000 ML IV SCH (11:00)
[2022-03-04] MEDS: RANOLAZINE 500 MG TABLET PO SCH ×2 (11:11→21:22)
[2022-03-04] MEDS ORDERED: POTASSIUM CHLORIDE 20 MEQ TABLET PO ONE (13:58)
[2022-03-04] MEDS ORDERED: SERTRALINE 50 MG TABLET PO SCH (21:00)
[2022-03-04] MEDS: ATORVASTATIN 40 MG TABLET PO SCH (21:23)
[2022-03-05 06:03] LABS: Basophils % 0.5 % (0.0-0.8); Eosinophils # 0.2 10*3/uL (0.0-0.87); Eosinophils % 2.4 % (0.00-10.9); Hematocrit 30.7 VOL% (42.0-52.0); Hemoglobin 9.7 GM/DL (14.0-18.0); Immature Granulocytes % 4.1 %; Immature Granulocytes Absolute 0.34 #; Lymphocytes # 1.6 10*3/uL (1.4-4.0); Lymphocytes % 19.9 % (21.2-54.2); Mean Corpuscular HGB Conc 31.6 GM/DL (32-36); Mean Corpuscular Volume 86.7 FL (87-102); Mean Platelet Volume 9.8 FL (9.6-12.0); Monocytes # 1.1 10*3/uL (0.11-0.8); Monocytes % 12.9 % (1.7-12.7); Neutrophils % 60.2 % (38.7-73.9); Platelet Count 421 T/CUMM (130-400); Red Blood Count 3.54 MC/CUMM (3.8-5.5); Red Cell Distribution Width 15.5 % (9.3-17.3); White Blood Count 8.2 T/CUMM (4-12)
[2022-03-05 06:13] LABS: Calcium 9.1 MG/DL (8.5-10.1); Potassium 3.3 MMOL/L (3.5-5.1)
[2022-03-05] MEDS ORDERED: POTASSIUM CHLORIDE 20 MEQ TABLET PO ONE (07:55)
[2022-03-05] MEDS: RANOLAZINE 500 MG TABLET PO SCH (08:16)
[2022-03-05] MEDS: LOSARTAN 50 MG TABLET PO SCH (08:16)
[2022-03-05] MEDS: PANTOPRAZOLE 40 MG TABLET PO SCH (08:16)
[2022-03-05] MEDS: BISACODYL 5 MG TABLET PO SCH (08:16)
[2022-03-05] MEDS: ASPIRIN EC 81 MG TABLET PO SCH (08:16)
[2022-03-05] MEDS: METOPROLOL SUCCINATE XL 50 MG TABLET PO SCH (08:16)
[2022-03-05] MEDS: CLOPIDOGREL 75 MG TABLET PO SCH (08:16)
[2022-03-05] MEDS: ISOSORBIDE MONONITRATE 30 MG TABLET PO SCH (08:16)
[2022-03-05] MEDS: levETIRAcetam 250 MG TABLET PO SCH (08:16)
[2022-03-05] MEDS: ENOXAPARIN 40 MG/0.4 ML SYRINGE SUBCUT SCH (08:17)
[2022-03-05 12:28] VITALS: BP 132/80
== END 2022-03-05 14:03 | DRG 280 ==
LOC: N.ED 23:55 → N.EDINP 23:55 → SUATTDRO 03-03 01:37 → N.EDINP 03-03 04:57 → N.TELES 03-03 05:01
PROVIDERS: ADMIT Hospitalist; ATTEND Hospitalist

== ENCOUNTER 2022-03-05 21:27 | Inpatient (IN) ==
[2022-03-05 22:03] LABS: Basophils # 0.1 10*3/uL (0.0-0.2); Basophils % 0.7 % (0.0-0.8); Eosinophils # 0.2 10*3/uL (0.0-0.87); Eosinophils % 2.1 % (0.00-10.9); Hematocrit 32.2 VOL% (42.0-52.0); Hemoglobin 10.5 GM/DL (14.0-18.0); Immature Granulocytes % 4.3 %; Immature Granulocytes Absolute 0.32 #; Lymphocytes # 1.4 10*3/uL (1.4-4.0); Mean Corpuscular HGB Conc 32.6 GM/DL (32-36); Mean Corpuscular Volume 85.2 FL (87-102); Mean Platelet Volume 9.1 FL (9.6-12.0); Monocytes # 0.8 10*3/uL (0.11-0.8); Monocytes % 11.2 % (1.7-12.7); Neutrophils % 62.7 % (38.7-73.9); Platelet Count 447 T/CUMM (130-400); Red Blood Count 3.78 MC/CUMM (3.8-5.5); Red Cell Distribution Width 15.5 % (9.3-17.3); White Blood Count 7.5 T/CUMM (4-12)
[2022-03-05] MEDS ORDERED: FUROSEMIDE 40 MG/4 ML VIAL IV STA (22:10)
[2022-03-05 22:14] LABS: INR 1.1; PT Patient Result 11.7 SECS (10.1-12.1); Partial Thromboplastin Time 29.3 SECS (23.7-32.9)
[2022-03-05 22:34] LABS: Albumin 2.9 G/DL (3.4-5.0); Bilirubin,Total 0.6 MG/DL (0.20-1.00); Calcium 8.7 MG/DL (8.5-10.1); Potassium 3.7 MMOL/L (3.5-5.1); Total Protein 6.8 G/DL (6.4-8.2)
[2022-03-05] MEDS ORDERED: ONDANSETRON 4 MG/2 ML VIAL IV PRN (22:54)
[2022-03-05] MEDS ORDERED: NICOTINE 21 MG/24 HR PATCH TRANSDERM PRN (22:54)
[2022-03-05] MEDS ORDERED: hydrALAZINE 20 MG/1 ML VIAL IV PRN (22:54)
[2022-03-05] MEDS ORDERED: ZALEPLON 5 MG CAPSULE PO PRN (22:54)
[2022-03-05] MEDS ORDERED: diphenhydrAMINE CAP 25 MG CAPSULE PO PRN (22:54)
[2022-03-05] MEDS ORDERED: ACETAMINOPHEN 325 MG TABLET PO PRN (22:54)
[2022-03-05] MEDS ORDERED: guaiFENesin/DM ER 600-30 MG TABLET PO PRN (22:54)
[2022-03-06] MEDS ORDERED: VANCOMYCIN INJ 1,500 MG in SODIUM CHLORIDE 0.9% 250 ML IV SCH (00:30)
[2022-03-06] MEDS ORDERED: PIPERACILLIN/TAZOBACTAM 4,500 MG in SODIUM CHLORIDE 0.9% 100 ML IV SCH (00:30)
[2022-03-06] MEDS: ALBUTEROL/IPRATROPIUM 3 ML NEB RESP TX SCH ×4 (01:31→20:31)
[2022-03-06] MEDS: VANCOMYCIN INJ 1,250 MG in SODIUM CHLORIDE 0.9% 250 ML IV SCH ×2 (01:50→22:12)
[2022-03-06] MEDS: PIPERACILLIN/TAZOBACTAM 3,375 MG in SODIUM CHLORIDE 0.9% 100 ML IV SCH ×3 (01:55→18:15)
[2022-03-06] MEDS: INSULIN LISPRO 100 UNIT/ML SUBCUT SCH ×3 (05:11→18:12)
[2022-03-06 05:54] LABS: Basophils % 0.6 % (0.0-0.8); Eosinophils # 0.2 10*3/uL (0.0-0.87); Eosinophils % 2.6 % (0.00-10.9); Hematocrit 34.9 VOL% (42.0-52.0); Immature Granulocytes Absolute 0.28 #; Lymphocytes # 1.4 10*3/uL (1.4-4.0); Lymphocytes % 19.9 % (21.2-54.2); Mean Corpuscular HGB Conc 31.5 GM/DL (32-36); Mean Corpuscular Volume 87.7 FL (87-102); Mean Platelet Volume 9.2 FL (9.6-12.0); Monocytes # 0.8 10*3/uL (0.11-0.8); Monocytes % 11.7 % (1.7-12.7); Neutrophils % 61.2 % (38.7-73.9); Platelet Count 457 T/CUMM (130-400); Red Blood Count 3.98 MC/CUMM (3.8-5.5); Red Cell Distribution Width 15.6 % (9.3-17.3)
[2022-03-06 06:26] LABS: Osmolality,Calculated 280.4 MOS/KG (273-304); Potassium 3.6 MMOL/L (3.5-5.1)
[2022-03-06] MEDS: METOPROLOL SUCCINATE XL 50 MG TABLET PO SCH (09:15)
[2022-03-06] MEDS: PANTOPRAZOLE 40 MG TABLET PO SCH (09:15)
[2022-03-06] MEDS: CLOPIDOGREL 75 MG TABLET PO SCH (09:15)
[2022-03-06] MEDS: HEPARIN 5,000 UNIT/1 ML VIAL SUBCUT SCH ×2 (09:15→21:49)
[2022-03-06] MEDS ORDERED: DEXTROSE 10% 250 ML BAG IV PRN (10:33)
[2022-03-06] MEDS ORDERED: GLUCAGON 1 MG VIAL IM PRN (10:33)
[2022-03-06] MEDS ORDERED: NITROGLYCERIN SL 0.4 MG TABLET SL PRN (10:37)
[2022-03-06] MEDS: ASPIRIN EC 81 MG TABLET PO SCH (12:05)
[2022-03-06] MEDS: FUROSEMIDE 20 MG TABLET PO SCH (12:05)
[2022-03-06] MEDS: LOSARTAN 50 MG TABLET PO SCH (12:05)
[2022-03-06] MEDS: ISOSORBIDE MONONITRATE 30 MG TABLET PO SCH (12:05)
[2022-03-06] MEDS: RANOLAZINE 500 MG TABLET PO SCH ×2 (12:05→21:48)
[2022-03-06] MEDS ORDERED: SERTRALINE 50 MG TABLET PO SCH (21:00)
[2022-03-06] MEDS ORDERED: ATORVASTATIN 40 MG TABLET PO SCH (21:00)
[2022-03-06] MEDS: levETIRAcetam 250 MG TABLET PO SCH (21:48)
[2022-03-07] MEDS: INSULIN LISPRO 100 UNIT/ML SUBCUT SCH ×3 (00:51→13:44)
[2022-03-07] MEDS: ALBUTEROL/IPRATROPIUM 3 ML NEB RESP TX SCH ×3 (01:19→13:08)
[2022-03-07] MEDS: PIPERACILLIN/TAZOBACTAM 3,375 MG in SODIUM CHLORIDE 0.9% 100 ML IV SCH ×2 (02:11→09:01)
[2022-03-07 04:48] LABS: Basophils # 0.1 10*3/uL (0.0-0.2); Basophils % 0.7 % (0.0-0.8); Eosinophils # 0.2 10*3/uL (0.0-0.87); Eosinophils % 2.2 % (0.00-10.9); Hemoglobin 10.1 GM/DL (14.0-18.0); Immature Granulocytes % 2.6 %; Lymphocytes # 1.5 10*3/uL (1.4-4.0); Lymphocytes % 19.3 % (21.2-54.2); Mean Corpuscular HGB Conc 31.6 GM/DL (32-36); Mean Corpuscular Volume 86.3 FL (87-102); Mean Platelet Volume 9.1 FL (9.6-12.0); Monocytes # 0.8 10*3/uL (0.11-0.8); Monocytes % 10.4 % (1.7-12.7); Neutrophils % 64.8 % (38.7-73.9); Platelet Count 479 T/CUMM (130-400); Red Blood Count 3.71 MC/CUMM (3.8-5.5); Red Cell Distribution Width 15.5 % (9.3-17.3); White Blood Count 7.6 T/CUMM (4-12)
[2022-03-07 05:07] LABS: Calcium 8.7 MG/DL (8.5-10.1); Osmolality,Calculated 288.8 MOS/KG (273-304); Potassium 3.2 MMOL/L (3.5-5.1)
[2022-03-07] MEDS ORDERED: POTASSIUM CHLORIDE 20 MEQ TABLET PO PRN (06:09)
[2022-03-07] MEDS: levETIRAcetam 250 MG TABLET PO SCH (09:09)
[2022-03-07] MEDS: LOSARTAN 50 MG TABLET PO SCH (09:09)
[2022-03-07] MEDS: PANTOPRAZOLE 40 MG TABLET PO SCH (09:09)
[2022-03-07] MEDS: ISOSORBIDE MONONITRATE 30 MG TABLET PO SCH (09:09)
[2022-03-07] MEDS: FUROSEMIDE 20 MG TABLET PO SCH (09:09)
[2022-03-07] MEDS: HEPARIN 5,000 UNIT/1 ML VIAL SUBCUT SCH (09:09)
[2022-03-07] MEDS: ASPIRIN EC 81 MG TABLET PO SCH (09:09)
[2022-03-07] MEDS: RANOLAZINE 500 MG TABLET PO SCH (09:09)
[2022-03-07] MEDS: METOPROLOL SUCCINATE XL 50 MG TABLET PO SCH (09:09)
[2022-03-07] MEDS: CLOPIDOGREL 75 MG TABLET PO SCH (09:09)
[2022-03-07] MEDS: VANCOMYCIN INJ 1,250 MG in SODIUM CHLORIDE 0.9% 250 ML IV SCH (14:53)
[2022-03-07 17:56] VITALS: BP 120/75
[2022-03-08] MEDS ORDERED: DAPAGLIFLOZIN 10 MG TABLET PO SCH (09:00)
[2022-03-08] MEDS ORDERED: SPIRONOLACTONE 25 MG TABLET PO SCH (09:00)
== END 2022-03-07 18:51 | DRG 177 ==
LOC: EDUNIT# → EDBD → N.ED 21:27 → N.EDINP 22:54 → N.CC 03-06 00:13 → N.TELEN 03-06 17:10
PROVIDERS: ADMIT Hospitalist; ATTEND Hospitalist

== ENCOUNTER 2022-06-04 10:32 | Inpatient (IN) ==
[2022-06-04 11:27] LABS: Arterial Base Excess iSTAT -10 MMOL/L (-2.5-2.5); Arterial Bicarbonate iSTAT 13.1 MMOL/L (20-26); Arterial O2 Saturation iSTAT 97 % (95-100); Arterial PCO2 iSTAT 23 MM HG (35-48); Arterial PO2 iSTAT 89 MM HG (80-95); Arterial Total CO2 iSTAT 14 MMO/L (23-27); Arterial pH iSTAT 7.374 (7.35-7.45)
[2022-06-04 12:09] LABS: Basophils % 0.2 % (0.0-0.8); Hematocrit 35.1 VOL% (42.0-52.0); Hemoglobin 10.7 GM/DL (14.0-18.0); Immature Granulocytes % 1.3 %; Immature Granulocytes Absolute 0.15 #; Lymphocytes % 8.7 % (21.2-54.2); Mean Corpuscular HGB Conc 30.5 GM/DL (32-36); Mean Corpuscular Volume 82.2 FL (87-102); Mean Platelet Volume 11.1 FL (9.6-12.0); Monocytes # 1.1 10*3/uL (0.11-0.8); Monocytes % 9.6 % (1.7-12.7); NRBC # 0.02 10*3/uL; Neutrophils % 80.2 % (38.7-73.9); Platelet Count 367 T/CUMM (130-400); Red Blood Count 4.27 MC/CUMM (3.8-5.5); Red Cell Distribution Width 21.3 % (9.3-17.3)
[2022-06-04 12:21] LABS: INR 1.5; PT Patient Result 16.3 SECS (10.1-12.1); Partial Thromboplastin Time 30.7 SECS (23.7-32.9)
[2022-06-04] MEDS ORDERED: SODIUM CHLORIDE 0.9% 1,000 ML IV STA (12:28)
[2022-06-04 12:36] LABS: Alanine Aminotransferase 685 U/L (16-61); Albumin 3.1 G/DL (3.4-5.0); Alkaline Phosphatase 225 U/L (45-117); Aspartate Amino Transferase 1384 U/L (0-37); Blood Urea Nitrogen 26 MG/DL (7-18); Calcium 8.7 MG/DL (8.5-10.1); Carbon Dioxide 16 MMOL/L (21-32); Chloride 113 MMOL/L (98-107); Glucose 93 MG/DL (74-106); Osmolality,Calculated 290.8 MOS/KG (273-304); Potassium 4.9 MMOL/L (3.5-5.1); Sodium 144 MMOL/L (136-145)
[2022-06-04 12:49] LABS: Mucus,Urine Few /LPF (Occasional); RBC,Urine 26 /HPF (0-4); Squamous Epithelial Cell,Urine Few /HPF (0-10)
[2022-06-04 12:50] LABS: Bilirubin,Urine Large mg/dL (Negative); Blood, Urine Large mg/dL (Negative); Glucose,Urine (UA) 100 mg/dL (Negative); Ketones,Urine 15 mg/dL (Negative); Nitrite,Urine Positive (Negative); Protein,Urine >=300 mg/dL (Negative); Urine Appearance Cloudy (Clear); Urine Color Brown (Yellow); Urine Specific Gravity > 1.030 (1.001-1.035)
[2022-06-04 12:51] LABS: Urine Urobilinogen > 8.0 eU/dL (<2.0)
[2022-06-04 13:56] LABS: Barbiturates Screen,Urine Negative (Negative); Benzodiazepines Screen,Urine Negative (Negative); Cannabinoid Screen,Urine Negative (Negative); Opiate Screen,Urine Negative (Negative); Phencyclidine Screen,Urine Negative (Negative)
[2022-06-04] MEDS ORDERED: cefTRIAXone 1,000 MG in SODIUM CHLORIDE 0.9% 100 ML IV STA (14:13)
[2022-06-04] MEDS ORDERED: ENOXAPARIN 100 MG/ML SYRINGE SUBCUT STA (14:52)
[2022-06-04] MEDS ORDERED: ALBUTEROL/IPRATROPIUM 3 ML NEB RESP TX PRN (14:53)
[2022-06-04] MEDS ORDERED: ONDANSETRON 4 MG/2 ML VIAL IV PRN (14:53)
[2022-06-04] MEDS ORDERED: ACETAMINOPHEN 325 MG TABLET PO PRN (14:53)
[2022-06-04] MEDS ORDERED: LACTULOSE 20 GM/30 ML UDCUP PO SCH (15:30)
[2022-06-04 15:38] LABS: Calcium 8.6 MG/DL (8.5-10.1); Osmolality,Calculated 292.7 MOS/KG (273-304)
[2022-06-04] MEDS: SODIUM CHLORIDE 0.9% 1,000 ML IV SCH (15:40)
[2022-06-04] MEDS ORDERED: SODIUM CHLORIDE 0.9% 1,000 ML IV ONE (15:56)
[2022-06-04] MEDS ORDERED: PANTOPRAZOLE 40 MG VIAL IV SCH (16:00)
[2022-06-04] MEDS: MEROPENEM 500 MG in SODIUM CHLORIDE 0.9% 100 ML IV SCH ×2 (16:45→23:20)
[2022-06-04 21:23] LABS: Hepatitis B Core IgM Quant 0.12 Index; Hepatitis B Surface Ag Quant < 0.10 Index; Hepatitis B Surface Ag Result Non-Reactive (NonReactive); Hepatitis C Virus Ab Quant < 0.02 Index; Hepatitis C Virus Ab Result Non-Reactive (NonReactive)
[2022-06-04 21:24] LABS: Calcium 8.3 MG/DL (8.5-10.1); Osmolality,Calculated 294.4 MOS/KG (273-304); Potassium 5.4 MMOL/L (3.5-5.1)
[2022-06-04] MEDS: LACTULOSE 20 GM/30 ML UDCUP PO SCH (21:25)
[2022-06-04] MEDS ORDERED: DEXTROSE 10% 250 ML BAG IV PRN (21:32)
[2022-06-04] MEDS: DIVALPROEX 250 MG TABLET PO SCH (21:49)
[2022-06-04] MEDS: HYDROCORTISONE 100 MG VIAL IV SCH (21:49)
[2022-06-04] MEDS: SODIUM BICARB INJ 150 MEQ in DEXTROSE 5% 1,000 ML IV SCH (21:50)
[2022-06-05] MEDS ORDERED: INFLUENZA VIRUS VACCINE 0.5 ML SYRINGE IM ONE (01:28)
[2022-06-05 03:09] LABS: Basophils % 0.2 % (0.0-0.8); Hematocrit 32.3 VOL% (42.0-52.0); Hemoglobin 9.5 GM/DL (14.0-18.0); Immature Granulocytes % 2.3 %; Immature Granulocytes Absolute 0.36 #; Lymphocytes # 0.4 10*3/uL (1.4-4.0); Lymphocytes % 2.6 % (21.2-54.2); Mean Corpuscular HGB Conc 29.4 GM/DL (32-36); Mean Corpuscular Volume 86.6 FL (87-102); Mean Platelet Volume 11.5 FL (9.6-12.0); Monocytes # 1.6 10*3/uL (0.11-0.8); Monocytes % 10.5 % (1.7-12.7); NRBC # 0.03 10*3/uL; Neutrophils % 84.4 % (38.7-73.9); Red Blood Count 3.73 MC/CUMM (3.8-5.5); Red Cell Distribution Width 22.2 % (9.3-17.3)
[2022-06-05 03:12] LABS: Platelet Count 274 T/CUMM (130-400); White Blood Count 15.52 T/CUMM (4-12)
[2022-06-05 03:34] LABS: Bilirubin,Direct 1.91 MG/DL (0.0-0.20); Bilirubin,Indirect 1.5 MG/DL (0.0-1.0); Bilirubin,Total 3.4 MG/DL (0.20-1.00); Total Protein 6.3 G/DL (6.4-8.2)
[2022-06-05 03:45] LABS: Hypochromia Slight; Lymphocytes 4 % (20-55); Microcytosis Slight; Platelet Estimate Adequate; Total Cells Counted 100
[2022-06-05 03:54] LABS: Albumin 2.9 G/DL (3.4-5.0); Bilirubin,Total 3.2 MG/DL (0.20-1.00); Calcium 7.6 MG/DL (8.5-10.1); Osmolality,Calculated 293.1 MOS/KG (273-304); Risk Ratio 3.29; Total Protein 6.6 G/DL (6.4-8.2); VLDL Cholesterol 16.4 MG/DL
[2022-06-05 03:59] LABS: Potassium 6.2 MMOL/L (3.5-5.1)
[2022-06-05] MEDS ORDERED: SODIUM POLYSTYRENE SULFATE 15 GM/60 ML BOTTLE PO ONE (04:02)
[2022-06-05] MEDS: LACTULOSE 20 GM/30 ML UDCUP PO SCH ×4 (04:29→19:56)
[2022-06-05] MEDS: INSULIN REGULAR 10 UNIT, CALCIUM GLUCONATE 1,000 MG in DEXTROSE 10% 250 ML IV ONE ×2 (04:30→04:34)
[2022-06-05] MEDS: HYDROCORTISONE 100 MG VIAL IV SCH ×3 (06:45→21:18)
[2022-06-05] MEDS: PANTOPRAZOLE 40 MG TABLET PO SCH ×2 (06:45→19:57)
[2022-06-05] MEDS ORDERED: LACTULOSE 20 GM/30 ML UDCUP PO SCH (07:01)
[2022-06-05] MEDS: SODIUM CHLORIDE 0.9% 1,000 ML IV SCH (07:17)
[2022-06-05] MEDS ORDERED: SODIUM BICARBONATE 50 MEQ/50 ML VIAL IV ONE (07:21)
[2022-06-05] MEDS: MEROPENEM 500 MG in SODIUM CHLORIDE 0.9% 100 ML IV SCH ×2 (09:03→15:14)
[2022-06-05] MEDS: DIVALPROEX 250 MG TABLET PO SCH ×2 (09:03→21:18)
[2022-06-05] MEDS: SODIUM ZIRCONIUM CYCLOSILICATE 10 GM PACK PO SCH ×3 (09:03→21:19)
[2022-06-05] MEDS: FERROUS FUMARATE PO SCH (09:23)
[2022-06-05] MEDS: SODIUM BICARB INJ 150 MEQ in DEXTROSE 5% 1,000 ML IV SCH (10:30)
[2022-06-05 12:20] LABS: Calcium 7.7 MG/DL (8.5-10.1); Osmolality,Calculated 307.4 MOS/KG (273-304); Potassium 4.3 MMOL/L (3.5-5.1)
[2022-06-05] MEDS: ENOXAPARIN 100 MG/ML SYRINGE SUBCUT SCH (15:14)
[2022-06-05] MEDS: SODIUM BICARB INJ 100 MEQ in DEXTROSE 5% 1,000 ML IV SCH (18:14)
[2022-06-05] MEDS: ZINC OXIDE 16% PASTE 57 GM TUBE TOP SCH (21:26)
[2022-06-06] MEDS: MEROPENEM 500 MG in SODIUM CHLORIDE 0.9% 100 ML IV SCH ×4 (00:03→23:40)
[2022-06-06] MEDS: LACTULOSE 20 GM/30 ML UDCUP PO SCH ×4 (02:54→20:36)
[2022-06-06 04:45] LABS: Arterial Base Excess iSTAT 0 MMOL/L (-2.5-2.5); Arterial Bicarbonate iSTAT 21.1 MMOL/L (20-26); Arterial O2 Saturation iSTAT 98 % (95-100); Arterial PCO2 iSTAT 24 MM HG (35-48); Arterial PO2 iSTAT 90 MM HG (80-95); Arterial Total CO2 iSTAT 22 MMO/L (23-27); Arterial pH iSTAT 7.553 (7.35-7.45)
[2022-06-06] MEDS: SODIUM BICARB INJ 100 MEQ in DEXTROSE 5% 1,000 ML IV SCH (05:32)
[2022-06-06] MEDS: HYDROCORTISONE 100 MG VIAL IV SCH ×3 (05:32→20:33)
[2022-06-06 05:56] LABS: Basophils % 0.1 % (0.0-0.8); Hematocrit 31.3 VOL% (42.0-52.0); Immature Granulocytes % 2.2 %; Immature Granulocytes Absolute 0.32 #; Lymphocytes # 0.4 10*3/uL (1.4-4.0); Lymphocytes % 2.8 % (21.2-54.2); Mean Corpuscular HGB Conc 31.9 GM/DL (32-36); Mean Corpuscular Volume 78.3 FL (87-102); Monocytes % 6.7 % (1.7-12.7); NRBC # 0.32 10*3/uL; Neutrophils % 88.2 % (38.7-73.9); Platelet Count 180 T/CUMM (130-400); Red Cell Distribution Width 21.3 % (9.3-17.3); White Blood Count 14.84 T/CUMM (4-12)
[2022-06-06 06:16] LABS: Hypochromia Slight; Lymphocytes 2 % (20-55); Ovalocytes Slight; Platelet Estimate Adequate; Total Cells Counted 100
[2022-06-06 06:17] LABS: Burr Cells Slight
[2022-06-06 06:35] LABS: Albumin 2.8 G/DL (3.4-5.0); Bilirubin,Total 2.5 MG/DL (0.20-1.00); Calcium 7.6 MG/DL (8.5-10.1); Osmolality,Calculated 311.1 MOS/KG (273-304); Potassium 3.1 MMOL/L (3.5-5.1); Total Protein 6.3 G/DL (6.4-8.2)
[2022-06-06] MEDS: PANTOPRAZOLE 40 MG TABLET PO SCH ×2 (06:40→18:52)
[2022-06-06 07:15] LABS: Albumin 2.9 G/DL (3.4-5.0); Bilirubin,Direct 1.93 MG/DL (0.0-0.20); Bilirubin,Indirect 0.6 MG/DL (0.0-1.0); Bilirubin,Total 2.5 MG/DL (0.20-1.00); Total Protein 6.3 G/DL (6.4-8.2)
[2022-06-06] MEDS ORDERED: POTASSIUM BICARB EFFERVESCENT 20 MEQ TAB.EFF PO ONE (07:15)
[2022-06-06] MEDS: DIVALPROEX 250 MG TABLET PO SCH ×2 (08:26→20:37)
[2022-06-06] MEDS: FERROUS FUMARATE PO SCH (08:27)
[2022-06-06] MEDS: ZINC OXIDE 16% PASTE 57 GM TUBE TOP SCH ×2 (08:27→20:36)
[2022-06-06] MEDS ORDERED: METOPROLOL TARTRATE 25 MG TABLET PO SCH (09:00)
[2022-06-06] MEDS ORDERED: METOPROLOL SUCCINATE XL 25 MG TABLET PO SCH (09:00)
[2022-06-06] MEDS ORDERED: hydrALAZINE 20 MG/1 ML VIAL IV PRN (14:21)
[2022-06-06] MEDS: METOPROLOL TARTRATE 25 MG TABLET PO SCH ×2 (14:59→20:36)
[2022-06-06] MEDS: ENOXAPARIN 100 MG/ML SYRINGE SUBCUT SCH (14:59)
[2022-06-06] MEDS: ISOSORBIDE MONONITRATE 60 MG TABLET PO SCH (14:59)
[2022-06-06] MEDS: APIXABAN 5 MG TABLET PO SCH (20:37)
[2022-06-06] MEDS: INSULIN LISPRO 100 UNIT/ML SUBCUT SCH (23:40)
[2022-06-07] MEDS: METOPROLOL TARTRATE 25 MG TABLET PO SCH ×4 (01:53→21:13)
[2022-06-07] MEDS: LACTULOSE 20 GM/30 ML UDCUP PO SCH ×3 (01:53→21:11)
[2022-06-07 03:55] LABS: Basophils % 0.1 % (0.0-0.8); Hematocrit 31.9 VOL% (42.0-52.0); Hemoglobin 10.1 GM/DL (14.0-18.0); Immature Granulocytes % 1.6 %; Immature Granulocytes Absolute 0.21 #; Lymphocytes # 0.4 10*3/uL (1.4-4.0); Lymphocytes % 2.8 % (21.2-54.2); Mean Corpuscular HGB Conc 31.7 GM/DL (32-36); Monocytes # 0.7 10*3/uL (0.11-0.8); Monocytes % 5.3 % (1.7-12.7); NRBC # 0.43 10*3/uL; Neutrophils % 90.2 % (38.7-73.9); Platelet Count 172 T/CUMM (130-400); Red Blood Count 4.04 MC/CUMM (3.8-5.5); Red Cell Distribution Width 21.8 % (9.3-17.3); White Blood Count 13.12 T/CUMM (4-12)
[2022-06-07 04:17] LABS: Albumin 2.6 G/DL (3.4-5.0); Bilirubin,Total 2.6 MG/DL (0.20-1.00); Calcium 7.6 MG/DL (8.5-10.1); Osmolality,Calculated 312.4 MOS/KG (273-304); Total Protein 5.7 G/DL (6.4-8.2)
[2022-06-07 04:31] LABS: Potassium 2.5 MMOL/L (3.5-5.1)
[2022-06-07 04:32] LABS: Hypochromia Slight; Lymphocytes 4 % (20-55); Nucleated Red Blood Cells 3 /100 WBC (0-5); Platelet Estimate Adequate; Total Cells Counted 100
[2022-06-07 04:33] LABS: Ovalocytes Slight
[2022-06-07] MEDS: POTASSIUM BICARB EFFERVESCENT 20 MEQ TAB.EFF PER TUBE PRN ×4 (04:55→21:11)
[2022-06-07] MEDS: HYDROCORTISONE 100 MG VIAL IV SCH ×2 (04:56→10:30)
[2022-06-07] MEDS: INSULIN LISPRO 100 UNIT/ML SUBCUT SCH ×3 (05:58→18:38)
[2022-06-07] MEDS: PANTOPRAZOLE 40 MG TABLET PO SCH ×2 (06:06→18:38)
[2022-06-07] MEDS: POTASSIUM CHLORIDE RIDER 10 MEQ/100 ML PREMIX IV SCH ×4 (07:53→11:56)
[2022-06-07] MEDS: MEROPENEM 500 MG in SODIUM CHLORIDE 0.9% 100 ML IV SCH ×2 (07:53→17:00)
[2022-06-07] MEDS: ISOSORBIDE MONONITRATE 60 MG TABLET PO SCH (09:40)
[2022-06-07] MEDS: ZINC OXIDE 16% PASTE 57 GM TUBE TOP SCH ×2 (09:40→21:13)
[2022-06-07] MEDS: DIVALPROEX 250 MG TABLET PO SCH ×2 (09:40→21:13)
[2022-06-07] MEDS: APIXABAN 5 MG TABLET PO SCH ×2 (09:40→21:13)
[2022-06-07] MEDS: FERROUS FUMARATE PO SCH (10:15)
[2022-06-07] MEDS: METOPROLOL TARTRATE 5 MG/5 ML VIAL IV PRN ×3 (10:20→18:39)
[2022-06-07 17:50] LABS: Osmolality,Calculated 315.4 MOS/KG (273-304); Potassium 2.9 MMOL/L (3.5-5.1)
[2022-06-07] MEDS: cefTRIAXone 1,000 MG in SODIUM CHLORIDE 0.9% 100 ML IV SCH (18:38)
[2022-06-07] MEDS: RANOLAZINE 500 MG TABLET PO SCH (21:13)
[2022-06-07] MEDS: SERTRALINE 50 MG TABLET PO SCH (21:13)
[2022-06-08] MEDS: HYDROCORTISONE 100 MG VIAL IV SCH ×3 (00:06→22:03)
[2022-06-08] MEDS: POTASSIUM BICARB EFFERVESCENT 20 MEQ TAB.EFF PER TUBE PRN ×4 (00:08→08:10)
[2022-06-08] MEDS: METOPROLOL TARTRATE 5 MG/5 ML VIAL IV PRN ×2 (00:08→13:49)
[2022-06-08] MEDS: INSULIN LISPRO 100 UNIT/ML SUBCUT SCH ×4 (02:43→17:08)
[2022-06-08] MEDS: METOPROLOL TARTRATE 25 MG TABLET PO SCH (02:43)
[2022-06-08 05:22] LABS: Basophils % 0.1 % (0.0-0.8); Hematocrit 34.2 VOL% (42.0-52.0); Hemoglobin 10.7 GM/DL (14.0-18.0); Immature Granulocytes Absolute 0.11 #; Lymphocytes # 0.5 10*3/uL (1.4-4.0); Lymphocytes % 4.5 % (21.2-54.2); Mean Corpuscular HGB Conc 31.3 GM/DL (32-36); Monocytes % 8.6 % (1.7-12.7); NRBC # 0.69 10*3/uL; Neutrophils % 85.8 % (38.7-73.9); Platelet Count 130 T/CUMM (130-400); Red Blood Count 4.22 MC/CUMM (3.8-5.5); Red Cell Distribution Width 22.5 % (9.3-17.3); White Blood Count 11.09 T/CUMM (4-12)
[2022-06-08 05:40] LABS: Bilirubin,Direct 0.17 MG/DL (0.0-0.20); Bilirubin,Indirect 0.4 MG/DL (0.0-1.0); Bilirubin,Total 0.6 MG/DL (0.20-1.00); Total Protein 5.3 G/DL (6.4-8.2)
[2022-06-08 05:44] LABS: Hypochromia Slight; Lymphocytes 5 % (20-55); Microcytosis Slight; Nucleated Red Blood Cells 13 /100 WBC (0-5); Platelet Estimate Normal; Total Cells Counted 100
[2022-06-08 05:45] LABS: Albumin 2.8 G/DL (3.4-5.0); Calcium 7.9 MG/DL (8.5-10.1); Osmolality,Calculated 317.3 MOS/KG (273-304); Potassium 3.2 MMOL/L (3.5-5.1); Total Protein 6.1 G/DL (6.4-8.2)
[2022-06-08] MEDS: PANTOPRAZOLE 40 MG TABLET PO SCH ×2 (06:40→20:54)
[2022-06-08] MEDS: RANOLAZINE 500 MG TABLET PO SCH ×2 (08:09→20:53)
[2022-06-08] MEDS: APIXABAN 5 MG TABLET PO SCH ×2 (08:09→20:53)
[2022-06-08] MEDS: ISOSORBIDE MONONITRATE 60 MG TABLET PO SCH (08:09)
[2022-06-08] MEDS: METOPROLOL TARTRATE 50 MG TABLET PO SCH ×3 (08:10→20:53)
[2022-06-08] MEDS: ZINC OXIDE 16% PASTE 57 GM TUBE TOP SCH ×2 (08:10→21:04)
[2022-06-08] MEDS: LACTULOSE 20 GM/30 ML UDCUP PO SCH ×2 (08:10→20:55)
[2022-06-08] MEDS: DIVALPROEX 250 MG TABLET PO SCH ×2 (08:10→20:53)
[2022-06-08] MEDS: FERROUS FUMARATE PO SCH (08:29)
[2022-06-08] MEDS: DIGOXIN 0.5 MG/2 ML AMP IV SCH ×2 (10:35→16:20)
[2022-06-08] MEDS: METOCLOPRAMIDE 10 MG/2 ML VIAL IV SCH (18:24)
[2022-06-08] MEDS: cefTRIAXone 1,000 MG in SODIUM CHLORIDE 0.9% 100 ML IV SCH (18:25)
[2022-06-08] MEDS: SERTRALINE 50 MG TABLET PO SCH (20:54)
[2022-06-09] MEDS: METOCLOPRAMIDE 10 MG/2 ML VIAL IV SCH ×4 (01:17→18:33)
[2022-06-09] MEDS: INSULIN LISPRO 100 UNIT/ML SUBCUT SCH ×4 (01:17→18:31)
[2022-06-09] MEDS: METOPROLOL TARTRATE 50 MG TABLET PO SCH ×4 (04:05→20:31)
[2022-06-09] MEDS: PANTOPRAZOLE 40 MG TABLET PO SCH ×2 (06:19→20:31)
[2022-06-09 06:24] LABS: Albumin 2.9 G/DL (3.4-5.0); Bilirubin,Total 4.1 MG/DL (0.20-1.00); Calcium 8.4 MG/DL (8.5-10.1); Osmolality,Calculated 316.6 MOS/KG (273-304); Potassium 3.9 MMOL/L (3.5-5.1); Total Protein 6.4 G/DL (6.4-8.2)
[2022-06-09 06:43] LABS: Basophils % 0.2 % (0.0-0.8); Hematocrit 35.4 VOL% (42.0-52.0); Hemoglobin 10.6 GM/DL (14.0-18.0); Immature Granulocytes % 1.4 %; Immature Granulocytes Absolute 0.17 #; Lymphocytes # 0.7 10*3/uL (1.4-4.0); Lymphocytes % 5.9 % (21.2-54.2); Mean Corpuscular HGB Conc 29.9 GM/DL (32-36); Mean Corpuscular Volume 81.9 FL (87-102); Monocytes # 1.7 10*3/uL (0.11-0.8); Monocytes % 14.3 % (1.7-12.7); NRBC # 1.64 10*3/uL; Neutrophils % 78.2 % (38.7-73.9); Platelet Count 109 T/CUMM (130-400); Red Blood Count 4.32 MC/CUMM (3.8-5.5); Red Cell Distribution Width 23.2 % (9.3-17.3); White Blood Count 12.21 T/CUMM (4-12)
[2022-06-09] MEDS: POTASSIUM BICARB EFFERVESCENT 20 MEQ TAB.EFF PER TUBE PRN (06:50)
[2022-06-09 07:42] LABS: Acanthocytes Few; Band Neutrophils 1 % (0-10); Hypochromia 1+; Lymphocytes 7 % (20-55); Microcytosis 1+; Nucleated Red Blood Cells 7 /100 WBC (0-5); Target Cells Slight; Total Cells Counted 100
[2022-06-09 07:43] LABS: Elliptocytes Few; Polychromasia Slight; Schistocytes Slight; Tear Drop Cells Slight
[2022-06-09 07:44] LABS: Platelet Estimate Adequate
[2022-06-09] MEDS: ZINC OXIDE 16% PASTE 57 GM TUBE TOP SCH ×2 (09:41→20:33)
[2022-06-09] MEDS: ISOSORBIDE MONONITRATE 60 MG TABLET PO SCH (10:00)
[2022-06-09] MEDS: RANOLAZINE 500 MG TABLET PO SCH ×2 (10:00→20:31)
[2022-06-09] MEDS: LACTULOSE 20 GM/30 ML UDCUP PO SCH ×2 (10:00→20:33)
[2022-06-09] MEDS: APIXABAN 5 MG TABLET PO SCH ×2 (10:00→20:32)
[2022-06-09] MEDS: DIVALPROEX 250 MG TABLET PO SCH ×2 (10:00→20:32)
[2022-06-09] MEDS: HYDROCORTISONE 100 MG VIAL IV SCH ×2 (10:00→21:28)
[2022-06-09] MEDS: FERROUS FUMARATE PO SCH (10:01)
[2022-06-09] MEDS: CHOLECALCIFEROL 5,000 UNIT TABLET PO SCH ×2 (10:02→20:33)
[2022-06-09] MEDS ORDERED: DIGOXIN 0.5 MG/2 ML AMP IV ONE (11:03)
[2022-06-09] MEDS: DIGOXIN 0.125 MG TABLET PO SCH (12:19)
[2022-06-09] MEDS: cefTRIAXone 1,000 MG in SODIUM CHLORIDE 0.9% 100 ML IV SCH (18:31)
[2022-06-09] MEDS: SERTRALINE 50 MG TABLET PO SCH (20:32)
[2022-06-10] MEDS: METOCLOPRAMIDE 10 MG/2 ML VIAL IV SCH ×3 (00:13→11:28)
[2022-06-10] MEDS: INSULIN LISPRO 100 UNIT/ML SUBCUT SCH ×4 (00:13→17:53)
[2022-06-10] MEDS: METOPROLOL TARTRATE 50 MG TABLET PO SCH ×4 (02:55→20:40)
[2022-06-10 03:49] LABS: Basophils % 0.2 % (0.0-0.8); Eosinophils % 0.1 % (0.00-10.9); Hematocrit 33.9 VOL% (42.0-52.0); Hemoglobin 10.7 GM/DL (14.0-18.0); Immature Granulocytes % 1.6 %; Immature Granulocytes Absolute 0.21 #; Lymphocytes # 0.5 10*3/uL (1.4-4.0); Mean Corpuscular HGB Conc 31.6 GM/DL (32-36); Mean Corpuscular Volume 80.3 FL (87-102); Monocytes # 1.3 10*3/uL (0.11-0.8); Monocytes % 9.9 % (1.7-12.7); NRBC # 1.33 10*3/uL; Neutrophils % 84.2 % (38.7-73.9); Platelet Count 123 T/CUMM (130-400); Red Blood Count 4.22 MC/CUMM (3.8-5.5); Red Cell Distribution Width 23.1 % (9.3-17.3)
[2022-06-10 04:04] LABS: Albumin 2.6 G/DL (3.4-5.0); Bilirubin,Total 4.2 MG/DL (0.20-1.00); Calcium 8.3 MG/DL (8.5-10.1); Osmolality,Calculated 321.3 MOS/KG (273-304)
[2022-06-10 04:09] LABS: Lymphocytes 5 % (20-55); Nucleated Red Blood Cells 8 /100 WBC (0-5); Total Cells Counted 100
[2022-06-10 04:10] LABS: Hypochromia Slight; Microcytosis Slight
[2022-06-10] MEDS: POTASSIUM BICARB EFFERVESCENT 20 MEQ TAB.EFF PER TUBE PRN ×3 (04:56→12:14)
[2022-06-10] MEDS: PANTOPRAZOLE 40 MG TABLET PO SCH (06:13)
[2022-06-10] MEDS: CHOLECALCIFEROL 5,000 UNIT TABLET PO SCH ×2 (08:54→20:40)
[2022-06-10] MEDS: APIXABAN 5 MG TABLET PO SCH ×2 (08:54→20:40)
[2022-06-10] MEDS: LACTULOSE 20 GM/30 ML UDCUP PO SCH ×2 (08:54→20:40)
[2022-06-10] MEDS: ZINC OXIDE 16% PASTE 57 GM TUBE TOP SCH ×2 (08:54→20:40)
[2022-06-10] MEDS: DIVALPROEX 250 MG TABLET PO SCH ×2 (08:54→20:40)
[2022-06-10] MEDS: FERROUS FUMARATE PO SCH (08:54)
[2022-06-10] MEDS: ISOSORBIDE MONONITRATE 60 MG TABLET PO SCH (08:54)
[2022-06-10] MEDS: RANOLAZINE 500 MG TABLET PO SCH ×2 (08:54→20:40)
[2022-06-10] MEDS: HYDROCORTISONE 100 MG VIAL IV SCH ×2 (09:42→21:01)
[2022-06-10] MEDS ORDERED: ALBUMIN 25% 25 GM/100 ML VIAL IV ONE (11:15)
[2022-06-10] MEDS: DIGOXIN 0.125 MG TABLET PO SCH (12:07)
[2022-06-10] MEDS ORDERED: FUROSEMIDE 40 MG/4 ML VIAL IV ONE (13:00)
[2022-06-10] MEDS: ALBUTEROL/IPRATROPIUM 3 ML NEB RESP TX SCH ×2 (14:10→19:10)
[2022-06-10] MEDS: RIVASTIGMINE 4.6 MG/24 HR PATCH TRANSDERM SCH (14:58)
[2022-06-10] MEDS: cefTRIAXone 1,000 MG in SODIUM CHLORIDE 0.9% 100 ML IV SCH (17:54)
[2022-06-10] MEDS: SERTRALINE 50 MG TABLET PO SCH (20:40)
[2022-06-10] MEDS ORDERED: PANTOPRAZOLE 40 MG TABLET PO SCH (21:00)
[2022-06-11] MEDS: INSULIN LISPRO 100 UNIT/ML SUBCUT SCH ×4 (00:52→17:50)
[2022-06-11] MEDS: ALBUTEROL/IPRATROPIUM 3 ML NEB RESP TX SCH ×4 (01:27→19:29)
[2022-06-11] MEDS: METOPROLOL TARTRATE 50 MG TABLET PO SCH ×4 (03:06→20:42)
[2022-06-11 04:36] LABS: Basophils % 0.1 % (0.0-0.8); Hematocrit 33.5 VOL% (42.0-52.0); Hemoglobin 10.5 GM/DL (14.0-18.0); Immature Granulocytes % 1.2 %; Immature Granulocytes Absolute 0.18 #; Lymphocytes # 0.6 10*3/uL (1.4-4.0); Mean Corpuscular HGB Conc 31.3 GM/DL (32-36); Mean Corpuscular Volume 80.3 FL (87-102); Monocytes # 1.3 10*3/uL (0.11-0.8); Monocytes % 9.2 % (1.7-12.7); NRBC # 0.75 10*3/uL; Neutrophils % 85.5 % (38.7-73.9); Platelet Count 183 T/CUMM (130-400); Red Blood Count 4.17 MC/CUMM (3.8-5.5); Red Cell Distribution Width 23.8 % (9.3-17.3); White Blood Count 14.46 T/CUMM (4-12)
[2022-06-11 04:48] LABS: Albumin 2.8 G/DL (3.4-5.0); Bilirubin,Total 3.1 MG/DL (0.20-1.00); Calcium 8.1 MG/DL (8.5-10.1); Osmolality,Calculated 317.4 MOS/KG (273-304); Potassium 3.2 MMOL/L (3.5-5.1); Total Protein 5.6 G/DL (6.4-8.2)
[2022-06-11 04:52] LABS: Lymphocytes 4 % (20-55); Nucleated Red Blood Cells 5 /100 WBC (0-5); Total Cells Counted 100
[2022-06-11 04:53] LABS: Acanthocytes Few; Hypochromia Slight; Polychromasia Slight; Target Cells Few
[2022-06-11 04:54] LABS: Anisocytosis 1+
[2022-06-11 04:55] LABS: Platelet Estimate Adequate
[2022-06-11] MEDS: POTASSIUM BICARB EFFERVESCENT 20 MEQ TAB.EFF PER TUBE PRN ×4 (05:09→15:05)
[2022-06-11] MEDS: VALPROIC ACID 250 MG/5 ML UDCUP NG SCH ×2 (08:50→20:42)
[2022-06-11] MEDS: RANOLAZINE 500 MG TABLET PO SCH ×2 (08:50→20:42)
[2022-06-11] MEDS: ISOSORBIDE MONONITRATE 60 MG TABLET PO SCH (08:50)
[2022-06-11] MEDS: LACTULOSE 20 GM/30 ML UDCUP PO SCH ×2 (08:50→20:42)
[2022-06-11] MEDS: RIVASTIGMINE 4.6 MG/24 HR PATCH TRANSDERM SCH (08:50)
[2022-06-11] MEDS: OMEPRAZOLE ODT 20 MG TABLET PO SCH ×2 (08:50→20:42)
[2022-06-11] MEDS: APIXABAN 5 MG TABLET PO SCH ×2 (08:50→20:43)
[2022-06-11] MEDS: CHOLECALCIFEROL 5,000 UNIT TABLET PO SCH ×2 (08:50→20:42)
[2022-06-11] MEDS: FERROUS FUMARATE PO SCH (09:00)
[2022-06-11] MEDS: HYDROCORTISONE 100 MG VIAL IV SCH ×2 (09:20→21:10)
[2022-06-11] MEDS: ZINC OXIDE 16% PASTE 57 GM TUBE TOP SCH ×2 (09:35→20:42)
[2022-06-11] MEDS: DIGOXIN 0.125 MG TABLET PO SCH (12:35)
[2022-06-11] MEDS: METOPROLOL TARTRATE 5 MG/5 ML VIAL IV PRN (16:45)
[2022-06-11] MEDS: cefTRIAXone 1,000 MG in SODIUM CHLORIDE 0.9% 100 ML IV SCH (17:55)
[2022-06-11] MEDS: SERTRALINE 50 MG TABLET PO SCH (20:42)
[2022-06-12] MEDS: ALBUTEROL/IPRATROPIUM 3 ML NEB RESP TX SCH ×4 (00:29→20:10)
[2022-06-12] MEDS: METOPROLOL TARTRATE 50 MG TABLET PO SCH ×4 (02:50→20:41)
[2022-06-12 04:50] LABS: Basophils % 0.1 % (0.0-0.8); Hematocrit 33.6 VOL% (42.0-52.0); Hemoglobin 10.4 GM/DL (14.0-18.0); Immature Granulocytes % 1.2 %; Immature Granulocytes Absolute 0.15 #; Lymphocytes # 0.3 10*3/uL (1.4-4.0); Lymphocytes % 2.3 % (21.2-54.2); Mean Corpuscular Volume 80.8 FL (87-102); Monocytes % 7.6 % (1.7-12.7); NRBC # 0.36 10*3/uL; Neutrophils % 88.8 % (38.7-73.9); Platelet Count 164 T/CUMM (130-400); Red Blood Count 4.16 MC/CUMM (3.8-5.5); Red Cell Distribution Width 24.4 % (9.3-17.3); White Blood Count 12.58 T/CUMM (4-12)
[2022-06-12 05:10] LABS: Albumin 2.4 G/DL (3.4-5.0); Bilirubin,Total 2.3 MG/DL (0.20-1.00); Calcium 8.1 MG/DL (8.5-10.1); Hypochromia Slight; Lymphocytes 5 % (20-55); Microcytosis Slight; Nucleated Red Blood Cells 1 /100 WBC (0-5); Osmolality,Calculated 317.3 MOS/KG (273-304); Platelet Estimate Adequate; Potassium 3.8 MMOL/L (3.5-5.1); Total Cells Counted 100; Total Protein 5.6 G/DL (6.4-8.2)
[2022-06-12] MEDS: INSULIN LISPRO 100 UNIT/ML SUBCUT SCH ×4 (05:35→17:30)
[2022-06-12] MEDS: POTASSIUM BICARB EFFERVESCENT 20 MEQ TAB.EFF PER TUBE PRN (05:36)
[2022-06-12] MEDS: RIVASTIGMINE 4.6 MG/24 HR PATCH TRANSDERM SCH (08:15)
[2022-06-12] MEDS: RANOLAZINE 500 MG TABLET PO SCH ×2 (08:20→20:41)
[2022-06-12] MEDS: OMEPRAZOLE ODT 20 MG TABLET PO SCH ×2 (08:20→20:41)
[2022-06-12] MEDS: VALPROIC ACID 250 MG/5 ML UDCUP NG SCH ×2 (08:20→20:41)
[2022-06-12] MEDS: APIXABAN 5 MG TABLET PO SCH ×2 (08:20→20:41)
[2022-06-12] MEDS: CHOLECALCIFEROL 5,000 UNIT TABLET PO SCH ×2 (08:20→20:42)
[2022-06-12] MEDS: ISOSORBIDE MONONITRATE 60 MG TABLET PO SCH (08:20)
[2022-06-12] MEDS: LACTULOSE 20 GM/30 ML UDCUP PO SCH (08:20)
[2022-06-12] MEDS: FERROUS FUMARATE PO SCH (09:00)
[2022-06-12] MEDS: ZINC OXIDE 16% PASTE 57 GM TUBE TOP SCH ×2 (11:20→20:41)
[2022-06-12] MEDS: HYDROCORTISONE 100 MG VIAL IV SCH (11:55)
[2022-06-12] MEDS: DIGOXIN 0.125 MG TABLET PO SCH (13:20)
[2022-06-12] MEDS: cefTRIAXone 1,000 MG in SODIUM CHLORIDE 0.9% 100 ML IV SCH (17:20)
[2022-06-12] MEDS: SERTRALINE 50 MG TABLET PO SCH (20:42)
[2022-06-13] MEDS: HYDROCORTISONE 100 MG VIAL IV SCH ×2 (00:04→11:20)
[2022-06-13] MEDS: INSULIN LISPRO 100 UNIT/ML SUBCUT SCH ×4 (00:04→17:17)
[2022-06-13] MEDS: ALBUTEROL/IPRATROPIUM 3 ML NEB RESP TX SCH ×4 (01:44→19:20)
[2022-06-13] MEDS: METOPROLOL TARTRATE 50 MG TABLET PO SCH ×4 (03:05→20:14)
[2022-06-13 04:17] LABS: Basophils % 0.1 % (0.0-0.8); Hematocrit 34.6 VOL% (42.0-52.0); Hemoglobin 10.8 GM/DL (14.0-18.0); Immature Granulocytes % 1.4 %; Immature Granulocytes Absolute 0.19 #; Lymphocytes # 0.5 10*3/uL (1.4-4.0); Lymphocytes % 3.2 % (21.2-54.2); Mean Corpuscular HGB Conc 31.2 GM/DL (32-36); Mean Corpuscular Volume 80.5 FL (87-102); Monocytes # 1.3 10*3/uL (0.11-0.8); Monocytes % 9.1 % (1.7-12.7); NRBC # 0.17 10*3/uL; Neutrophils % 86.2 % (38.7-73.9); Platelet Count 194 T/CUMM (130-400); White Blood Count 14.06 T/CUMM (4-12)
[2022-06-13 04:35] LABS: Albumin 2.2 G/DL (3.4-5.0); Calcium 7.9 MG/DL (8.5-10.1); Lymphocytes 5 % (20-55); Nucleated Red Blood Cells 2 /100 WBC (0-5); Osmolality,Calculated 308.7 MOS/KG (273-304); Platelet Estimate Adequate; Total Cells Counted 100; Total Protein 5.4 G/DL (6.4-8.2)
[2022-06-13 04:36] LABS: Hypochromia Slight; Microcytosis Slight
[2022-06-13] MEDS: LACTULOSE 20 GM/30 ML UDCUP PO SCH (08:32)
[2022-06-13] MEDS: CHOLECALCIFEROL 5,000 UNIT TABLET PO SCH ×2 (08:32→20:14)
[2022-06-13] MEDS: RANOLAZINE 500 MG TABLET PO SCH (08:32)
[2022-06-13] MEDS: OMEPRAZOLE ODT 20 MG TABLET PO SCH ×2 (08:32→20:14)
[2022-06-13] MEDS: VALPROIC ACID 250 MG/5 ML UDCUP NG SCH ×2 (08:32→20:13)
[2022-06-13] MEDS: ISOSORBIDE MONONITRATE 60 MG TABLET PO SCH (08:32)
[2022-06-13] MEDS: APIXABAN 5 MG TABLET PO SCH ×2 (08:32→20:14)
[2022-06-13] MEDS: ZINC OXIDE 16% PASTE 57 GM TUBE TOP SCH ×2 (08:33→20:39)
[2022-06-13] MEDS: FERROUS FUMARATE PO SCH (08:34)
[2022-06-13] MEDS: ISOSORBIDE DINITRATE 10 MG TABLET PO SCH ×2 (08:52→20:13)
[2022-06-13] MEDS: DIGOXIN 0.125 MG TABLET PO SCH (12:06)
[2022-06-13] MEDS: cefTRIAXone 1,000 MG in SODIUM CHLORIDE 0.9% 100 ML IV SCH (17:17)
[2022-06-13] MEDS: SERTRALINE 50 MG TABLET PO SCH (20:13)
[2022-06-14] MEDS: HYDROCORTISONE 100 MG VIAL IV SCH ×2 (00:21→11:31)
[2022-06-14] MEDS: INSULIN LISPRO 100 UNIT/ML SUBCUT SCH ×3 (00:23→11:31)
[2022-06-14] MEDS: ALBUTEROL/IPRATROPIUM 3 ML NEB RESP TX SCH ×3 (00:55→12:45)
[2022-06-14] MEDS: METOPROLOL TARTRATE 50 MG TABLET PO SCH ×2 (03:36→08:20)
[2022-06-14 06:12] LABS: Basophils % 0.1 % (0.0-0.8); Eosinophils % 0.2 % (0.00-10.9); Hematocrit 35.1 VOL% (42.0-52.0); Immature Granulocytes % 1.9 %; Immature Granulocytes Absolute 0.25 #; Lymphocytes # 0.5 10*3/uL (1.4-4.0); Mean Corpuscular HGB Conc 31.3 GM/DL (32-36); Mean Corpuscular Volume 81.3 FL (87-102); Monocytes # 1.4 10*3/uL (0.11-0.8); Monocytes % 10.1 % (1.7-12.7); NRBC # 0.12 10*3/uL; Neutrophils % 83.7 % (38.7-73.9); Platelet Count 256 T/CUMM (130-400); Red Blood Count 4.32 MC/CUMM (3.8-5.5); Red Cell Distribution Width 25.5 % (9.3-17.3); White Blood Count 13.33 T/CUMM (4-12)
[2022-06-14 06:14] LABS: Albumin 2.1 G/DL (3.4-5.0); Calcium 7.9 MG/DL (8.5-10.1); Osmolality,Calculated 304.9 MOS/KG (273-304); Potassium 4.2 MMOL/L (3.5-5.1); Total Protein 5.3 G/DL (6.4-8.2)
[2022-06-14 06:39] LABS: Lymphocytes 2 % (20-55); Total Cells Counted 100
[2022-06-14 06:40] LABS: Anisocytosis 1+; Hypochromia 1+; Target Cells Few
[2022-06-14 06:41] LABS: Ovalocytes Slight; Platelet Estimate Normal
[2022-06-14] MEDS: ZINC OXIDE 16% PASTE 57 GM TUBE TOP SCH (08:17)
[2022-06-14] MEDS: APIXABAN 5 MG TABLET PO SCH (08:20)
[2022-06-14] MEDS: ISOSORBIDE DINITRATE 10 MG TABLET PO SCH (08:20)
[2022-06-14] MEDS: OMEPRAZOLE ODT 20 MG TABLET PO SCH (08:20)
[2022-06-14] MEDS: CHOLECALCIFEROL 5,000 UNIT TABLET PO SCH (08:20)
[2022-06-14] MEDS: VALPROIC ACID 250 MG/5 ML UDCUP NG SCH (08:20)
[2022-06-14] MEDS: LACTULOSE 20 GM/30 ML UDCUP PO SCH (08:21)
[2022-06-14] MEDS: FERROUS FUMARATE PO SCH (08:21)
[2022-06-14] MEDS ORDERED: LEVOFLOXACIN 500 MG TABLET PER TUBE SCH (09:00)
[2022-06-14 12:28] VITALS: BP 141/83
[2022-06-14] MEDS: DIGOXIN 0.125 MG TABLET PO SCH (13:31)
[2022-06-14] MEDS ORDERED: INFLUENZA VIRUS VACCINE 0.5 ML SYRINGE IM ONE (14:00)
== END 2022-06-14 13:39 | disposition hospice, inpatient (51) | DRG 871 ==
LOC: N.ED 10:32 → N.EDINP 14:53 → SUATTDRO 14:53 → N.ICU 20:20
PROVIDERS: ADMIT Internal Medicine; ATTEND Internal Medicine